=== PATIENT | male | born 1945 | race Caucasian/White ===

== ENCOUNTER 2017-09-02 18:14 | Emergency (ER) | payer OTHER, MEDICARE ==
[2017-09-02] MEDS ORDERED: NA CHLORIDE 0.9% 1,000 ML ONE (19:26)
--- NOTE | 2017-09-02 19:46 | RAD REPORT ---
EXAM DESCRIPTION: CT - Head Brain Wo Cont - 09/02/2017 7:35 pm CLINICAL HISTORY: Weakness, possible CVA COMPARISON: June 2015 TECHNIQUE: Axial 5 mm thick images of the head were obtained without IV contrast. All CT scans are performed using dose optimization technique as appropriate and may include automated exposure control or mA/KV adjustment according to patient size. FINDINGS: No intracranial hemorrhage, mass, edema or shift of mid-line structures. No acute cortical based infarction identified. Prominent atrophy and chronic ischemic changes are present. Ventricular size is in proportion to the amount of volume loss. Arterial and physiologic calcifications are pres ent. No abnormal extra-axial fluid collections. Intracranial findings are similar to the comparison. Mastoid air cells and visualized portions of the paranasal sinuses are clear. No acute bony findings. IMPRESSION: Prominent atrophy and chronic ischemic change similar to prior imaging. No acute intracranial finding seen.
[2017-09-02 19:47] LABS: Potassium 4.2 mEq/L (3.6-5.0)
[2017-09-02 19:49] LABS: Protime INR 0.98
[2017-09-02 19:53] LABS: Albumin 4.2 g/dL (3.2-5.5); Bilirubin Direct 0.1 mg/dL (0-0.2); Bilirubin Total 0.5 mg/dL (0.3-1.2); Magnesium 1.6 mg/dL (1.8-2.5); Protein, Total 7.7 g/dL (6.0-8.3)
[2017-09-02 19:57] LABS: CKMB Creatine Kinase MB 1.3 ng/ml (0.3-4.0)
[2017-09-02 20:20] LABS: Absolute Lymphocytes (CBC) 1.5 K/uL (0.7-4.9); Absolute Monocytes 0.6 K/uL (0.1-1.3); Absolute Neutrophil 5.4 K/uL (1.8-8.0); Basophils % 0.9 % (0-1.3); Eosinophils % 1.3 % (0-4.4); Hematocrit 34.5 % (39.6-49.0); MCH 29.4 pg (27.0-35.0); MCV 84.6 fL (80-100); MPV 7.9 fL (7.6-11.3); RBC Red Blood Cell Count 4.08 M/uL (4.33-5.43)
[2017-09-02 20:36] LABS: Urine Blood 1+ (NEG); Urine Glucose 2+ (NEG); Urine Protein NEGATIVE (NEG); Urine Specific Gravity <1.005 (1.005-1.030)
[2017-09-02] MEDS ORDERED: Magnesium Sulfate 2gm IVPB 2 G/50 ML BAG IV ONE (20:54)
[2017-09-02] MEDS ORDERED: INSULIN -REGULAR HUMAN 50 UNIT/0.5 ML ML ONE (20:54)
--- NOTE | 2017-09-02 21:05 | RAD REPORT ---
EXAM DESCRIPTION: RAD - Chest Single View - 09/02/2017 7:43 pm CLINICAL HISTORY: Weakness, shortness of breath COMPARISON: January 2017 TECHNIQUE: AP portable chest image was obtained at 1932 hour . FINDINGS: Lung volumes are low. No peripheral mass or consolidation. Heart and vasculature are teresa l. No measurable pleural effusion and no pneumothorax. No gross bony abnormality seen. No acute aorti c findings suspected. IMPRESSION: No acute cardiopulmonary process. No significant change from comparison.
--- NOTE | 2017-09-02 22:38 | ER ---
Nurse's Notes [facility] Name: Agustin Petty Sr Age: 71 yrs Sex: Male : 1945 Arrival Date: 09/02/2017 Time: 18:21 Bed 27 Private MD: Diagnosis: Hyperglycemia, unspecified;Altered mental status, unspecified;Focal Neurologic Deficits ;Suspected CVA Presentation: 09/02 18:21 Presenting complaint: EMS states: Pt. comes from home by EMS c/o weakness... pt. states rk2 that his blood sugar has been running high and that he has had frequent urination. Transition of care: patient was not received from another setting of care. Onset of symptoms was September 02, 2017. Care prior to arrival: Medication(s) given: Normal saline infusion, 500 mL, IV initiated. 20 GA, in the left antecubital area. 18:21 Method Of Arrival: EMS: [facility] rk2 18:21 Acuity: ALVIN 3 rk2 22:17 An acute neurological deficit is present. The patients blood glucose was checked prior rk2 to arriving to the hospital and was found to be hyperglycemic. Triage Assessment: 19:30 General: Appears in no apparent distress. Behavior is calm, cooperative. rk2 19:30 Pain: Denies pain. Neuro: Level of Consciousness is alert, obeys commands, confused, rk2 Oriented to person, place, time, Oriented; however, is confused \T\ times. . Analytical Engineer are weak on right Speech is normal, Facial symmetry appears normal, Facial symmetry: tongue is midline. Cardiovascular: Rhythm is sinus rhythm. Respiratory: Airway is patent Respiratory effort is even, unlabored, Respiratory pattern is regular, symmetrical. Derm: Skin is pink, warm \T\ dry. 22:17 The onset of the patients symptoms was September 01, 2017 at 08:00. rk2 23:31 Neuro: Reports None. rk2 Stroke Activation: Physician: Stroke Attending; Name: NA; Notified At: ; Arrived At: Physician: Chief Stroke Resident; Name: ; Notified At: ; Arrived At: Physician: Stroke Resident; Name: ; Notified At: ; Arrived At: Physician: ED Attending; Name: ; Notified At: ; Arrived At: Physician: ED Resident; Name: ; Notified At: ; Arrived At: Historical: - Allergies: 18:25 No Known Allergies; rk2 - Home Meds: 23:31 Glimepiride Oral [Active]; Metformin Oral [Active]; rk2 - PMHx: 18:25 Diabetes - NIDDM; Hypertension; rk2 - Immunization history:: Flu vaccine status is unknown. - Social history:: Smoking status: unknown. Screenin:30 Abuse screen: Denies threats or abuse. rk2 19:30 Nutritional screening: No deficits noted. Tuberculosis screening: No symptoms or risk rk2 factors identified. Fall Risk Secondary diagnosis (15 points) IV access (20 points). Gait- Impaired (20 pts.). Mental Status- Overestimates/Forgets Limitations (15 pts.). Assessment: 20:00 Reassessment: Pt. resting in room \T\ this time in no obvious distress. Family \T\ bedside. rk 2 Pt. given warm blankets. No other needs voiced. 21:07 Patient has been NPO before screening. The patient is alert, and able to follow rk2 commands. The patient does not exhibit slurred or garbled speech. The patient is not exhibiting difficulty speaking. The patient does not exhibit difficulty understanding words. The patient is able to swallow own secretions with no drooling or need for suction. Patient tolerated one teaspoon of water. No drooling, immediate coughing, gurgling, or clearing of the throat was noted. The patient tolerated 90mL of water. No drooling, immediate coughing, gurgling, or clearing of the throat was noted. The patient passed the bedside swallow screening. Oral medications may be given as ordered. Contact Physician for further diet orders. Provider notified of bedside swallow screening results: Fredrick GURROLA. 22:21 T-PA (Activase) Screening: Indications: Contraindications: Other: NA. rk2 23:11 Reassessment: Called report to receiving MARCE Raza. rk2 23:28 Reassessment: [facility] arrived, report given to Stations Superintendent... Pt. placed onto rk2 stretcher and transported. Family is to meet pt. at receiving facility. Vital Signs: 18:25 BP 148 / 85; Pulse 74; Resp 17; Temp 98.6; rk2 19:00 BP 164 / 93; Pulse 74; Resp 17; rk2 20:00 BP 140 / 78; Pulse 70; Resp 16; Pulse Ox 100% on R/A; rk2 20:30 BP 140 / 71; Pulse 65; Resp 17; Pulse Ox 100% on R/A; rk2 21:00 BP 153 / 66; Pulse 70; Resp 15; Pulse Ox 100% on R/A; rk2 21:30 BP 124 / 74; Pulse 77; Resp 16; Pulse Ox 100% on R/A; rk2 22:00 BP 143 / 83; Pulse 78; Resp 16; Pulse Ox 97% ; rk2 23:00 BP 138 / 72; Pulse 72; Resp 16; Pulse Ox 99% on R/A; rk2 NIH Stroke Scale Scores: 19:10 NIHSS Score: 3 jr8 21:07 NIHSS Score: 3 rk2 ED Course: 18:21 Patient arrived in ED. rk2 18:24 Triage completed. rk2 18:28 Antonella Dia, RN is Primary Nurse. rk2 18:34 Fredrick Bolaños PA is PHCP. jr8 18:34 Valente Smallwood MD is Attending Physician. jr8 19:25 CT Head Brain wo Cont Sent. rk2 19:30 Patient has correct armband on for positive identification. Bed in low position. Call rk2 light in reach. Side rails up X2. radiation monitor on. Pulse ox on. 19:30 Arm band placed on right wrist. rk2 19:35 CT Head Brain wo Cont In Process Unspecified. EDMS 19:41 X-ray completed. Patient tolerated procedure well. kp1 19:42 XRAY Chest (1 view) In Process Unspecified. EDMS 23:30 No provider procedures requiring assistance completed. Patient transferred, IV remains rk2 in place. Administered Medications: 19:50 Drug: NS 0.9% 1000 ml Route: IV; Rate: 1000 ml; Site: left antecubital; rk2 21:00 Follow up: Response: No adverse reaction; IV Status: Completed infusion rk2 20:55 Drug: Insulin Regular Human 10 units {Co-Signature: tl3 (Cadence Luis RN).} Route: IVP; rk2 Site: left antecubital; 22:06 Follow up: Response: No adverse reaction; Other rk2 21:05 Drug: Magnesium Sulfate 2 grams Route: IVPB; Infused Over: 2 hrs; Site: left rk2 antecubital; 23:00 Follow up: Response: No adverse reaction; IV Status: Completed infusion rk2 Point of Care Testing: Blood Glucose: 22:17 Blood Glucose: 200 mg/dL; rk2 Ranges: Outcome: 22:37 ER care complete, transfer ordered by . marge 23:30 Transferred by ground EMS to [facility]. rk2 23:30 Condition: good 23:30 Instructed on the need for transfer. 23:33 Patient left the ED. rk2 NIH Stroke Scale - NIH Stroke Score Date: 09/02/2017 Time: 19:10 Total Score = 3 1a. Level of Consciousness (LOC) - 0(Alert) 1b. Level of Consciousness (LOC) (Year \T\ Age) - 0(Both) 1c. LOC Commands (Open \T\ Closes Eyes/Child Care Leader) - 0(Both) 2. Best Gaze (Lateral Gaze Paresis) - 0(Normal) 3. Visual Field Loss - 1(Partial hemianopia) 4. Facial Palsy - 0(Normal) 5a. Left Arm: Motor (10-second hold) - 0(No drift) 5b. Right Arm: Motor (10-second hold) - 1(Drift) 6a. Left Leg: Motor (5-second hold - always test supine) - 0(No drift) 6b. Right Leg: Motor (5-second hold - always test supine) - 1(Drift) 7. Limb Ataxia (finger/nose \T\ heel/holguin - test with eyes open) - 0(Absent) 8. Sensory Loss (pinprick arms/legs/face) - 0(Normal) 9. Best Language: Aphasia (description/naming/reading) - 0(No aphasia) 10. Dysarthria (speech clarity - read or repeat words) - 0(Normal) 11. Extinction and Inattention (visual/tactile/auditory/spatial/personal) - 0(No abnormality) Initials: marge NIH Stroke Scale - NIH Stroke Score Date: 09/02/2017 Time: 21:07 Total Score = 3 1a. Level of Consciousness (LOC) - 0(Alert) 1b. Level of Consciousness (LOC) (Year \T\ Age) - 0(Both) 1c. LOC Commands (Open \T\ Closes Eyes/Child Care Leader) - 0(Both) 2. Best Gaze (Lateral Gaze Paresis) - 0(Normal) 3. Visual Field Loss - 1(Partial hemianopia) 4. Facial Palsy - 0(Normal) 5a. Left Arm: Motor (10-second hold) - 0(No drift) 5b. Right Arm: Motor (10-second hold) - 1(Drift) 6a. Left Leg: Motor (5-second hold - always test supine) - 0(No drift) 6b. Right Leg: Motor (5-second hold - always test supine) - 1(Drift) 7. Limb Ataxia (finger/nose \T\ heel/holguin - test with eyes open) - 0(Absent) 8. Sensory Loss (pinprick arms/legs/face) - 0(Normal) 9. Best Language: Aphasia (description/naming/reading) - 0(No aphasia) 10. Dysarthria (speech clarity - read or repeat words) - 0(Normal) 11. Extinction and Inattention (visual/tactile/auditory/spatial/personal) - 0(No abnormality) Initials: rk2 Signatures: Dispatcher [employer] EDFredrick Morel PA PA jr8 Leidy Caldwell kp1 Antonella Dia RN RN rk2 Cadence Luis RN tl3
--- NOTE | 2017-09-02 22:38 | EDPHYS ---
Physician Documentation [facility] Name: Agustin Petty Sr Age: 71 yrs Sex: Male : 1945 Arrival Date: 09/02/2017 Time: 18:21 Bed 27 Private MD: ED Physician Valente Smallwood HPI: 09/02 22:26 This 71 yrs old Male presents to ER via EMS with complaints of AMS, weakness. jr8 22:26 The patient's problem is reported as altered mental status, confused, weakness, in the jr8 right upper extremity, in the right lower extremity. Onset: The symptoms/episode began/occurred suddenly, 2 day(s) ago. Duration: The episode is continuous. Context: the episode(s) was witnessed, by family. The symptoms are alleviated by nothing. The symptoms are aggravated by walking. Associated signs and symptoms: The patient has no apparent associated signs or symptoms. Severity of symptoms: At their worst the symptoms were moderate in the emergency department the symptoms are unchanged. Patient's baseline: Neuro: alert and fully oriented, Motor: no deficits, Ambulation: walks without assistance, Speech: normal. The patient has not experienced similar symptoms in the past. Family stated that for the past year has noticed a slight decline in mental function. Has been more week in lower extremities since radiations surgery but has been baseline for him for sometime. Stated that they scheduled appointment with neurologist for mental decline but that over the past day has noticed sporadic shaking and weakness to right side of body along with drastic change in mental function. Brought him to hospital at that time for further evaluation . Historical: - Allergies: 18:25 No Known Allergies; rk2 - Home Meds: 23:31 Glimepiride Oral [Active]; Metformin Oral [Active]; rk2 - PMHx: 18:25 Diabetes - NIDDM; Hypertension; rk2 - Immunization history:: Flu vaccine status is unknown. - Social history:: Smoking status: unknown. ROS: 19:13 ENT: Negative for injury, pain, and discharge, Neck: Negative for injury, pain, and jr8 swelling, Cardiovascular: Negative for chest pain, palpitations, and edema, Respiratory: Negative for shortness of breath, cough, wheezing, and pleuritic chest pain, Abdomen/GI: Negative for abdominal pain, nausea, vomiting, diarrhea, and constipation, Back: Negative for injury and pain, MS/Extremity: Negative for injury and deformity, Skin: Negative for injury, rash, and discoloration. 19:13 Eyes: Positive for visual disturbance. 19:13 Neuro: Positive for altered mental status, visual changes, weakness. Exam: 19:10 Head/Face: Normocephalic, atraumatic. Eyes: Pupils equal round and reactive to light, jr8 extra-ocular motions intact. Lids and lashes normal. Conjunctiva and sclera are non-icteric and not injected. Cornea within normal limits. Periorbital areas with no swelling, redness, or edema. ENT: Nares patent. No nasal discharge, no septal abnormalities noted. Tympanic membranes are normal and external auditory canals are clear. Oropharynx with no redness, swelling, or masses, exudates, or evidence of obstruction, uvula midline. Mucous membranes moist. Neck: Trachea midline, no thyromegaly or masses palpated, and no cervical lymphadenopathy. Supple, full range of motion without nuchal rigidity, or vertebral point tenderness. No Meningismus. Cardiovascular: Regular rate and rhythm with a normal S1 and S2. No gallops, murmurs, or rubs. Normal PMI, no JVD. No pulse deficits. Respiratory: Lungs have equal breath sounds bilaterally, clear to auscultation and percussion. No rales, rhonchi or wheezes noted. No increased work of breathing, no retractions or nasal flaring. Abdomen/GI: Soft, non-tender, with normal bowel sounds. No distension or tympany. No guarding or rebound. No evidence of tenderness throughout. Back: No spinal tenderness. No costovertebral tenderness. Full range of motion. Skin: Warm, dry with normal turgor. Normal color with no rashes, no lesions, and no evidence of cellulitis. MS/ Extremity: Pulses equal, no cyanosis. Neurovascular intact. Full, normal range of motion. 19:10 Neuro: Orientation: to person, place \T\ time. Mentation: confused, Memory: immediate memory is intact, remote memory is intact. recent memory is intact, Cranial nerves: CN I not tested, CN II- XII are normal as tested, hononymous hemianopia noted, extraocular movements are intact, Nystagmus is absent. Speech is clear and appropriate. Tongue strength is normal, Cerebellar function: is grossly normal, Motor: moves all fours, Sensation: no obvious gross deficits, Gait: not tested. seizure activity, is not displayed by the patient. 22:37 Radiologist reports: No acute findings jr8 Vital Signs: 18:25 BP 148 / 85; Pulse 74; Resp 17; Temp 98.6; rk2 19:00 BP 164 / 93; Pulse 74; Resp 17; rk2 20:00 BP 140 / 78; Pulse 70; Resp 16; Pulse Ox 100% on R/A; rk2 20:30 BP 140 / 71; Pulse 65; Resp 17; Pulse Ox 100% on R/A; rk2 21:00 BP 153 / 66; Pulse 70; Resp 15; Pulse Ox 100% on R/A; rk2 21:30 BP 124 / 74; Pulse 77; Resp 16; Pulse Ox 100% on R/A; rk2 22:00 BP 143 / 83; Pulse 78; Resp 16; Pulse Ox 97% ; rk2 23:00 BP 138 / 72; Pulse 72; Resp 16; Pulse Ox 99% on R/A; rk2 NIH Stroke Scale Scores: 19:10 NIHSS Score: 3 jr8 21:07 NIHSS Score: 3 rk2 MDM: 18:34 Patient medically screened. 8 22:33 Data reviewed: vital signs, nurses notes, lab test result(s), EKG, radiologic studies, [facility] CT scan, plain films, and as a result, I will admit patient. Data interpreted: Pulse oximetry: on room air is 97 %. Interpretation: normal. Counseling: I had a detailed discussion with the patient and/or guardian regarding: the historical points, exam findings, and any diagnostic results supporting the discharge/admit diagnosis, lab results, radiology results, the need to transfer to another facility, for higher level of care, [facility] does not immediately have the required specialist. ED course: After glucose was corrected the resting tremor has stopped. Patient still has stages of confusion and deficits to right side. Consulted with Dr. Alston but is unable to see patient until Sunday and would like MRI tonight instead of waiting till tomorrow . 09/02 18:21 Order name: Glucose, Ancillary Testing; Complete Time: 18:34 EDMS 09/02 19:08 Order name: Basic Metabolic Panel; Complete Time: 20:28 09/02 19:08 Order name: BNP; Complete Time: 22:26 09/02 19:08 Order name: CBC with Diff; Complete Time: 20:28 09/02 19:08 Order name: Ckmb; Complete Time: 20:28 09/02 19:08 Order name: CPK; Complete Time: 20:28 09/02 19:08 Order name: LFT's; Complete Time: 20:28 09/02 19:08 Order name: Magnesium; Complete Time: 20:28 09/02 19:08 Order name: PT-INR; Complete Time: 20:28 09/02 19:08 Order name: Ptt, Activated; Complete Time: 20:28 09/02 19:08 Order name: Troponin (emerg Dept Use Only); Complete Time: 19:56 09/02 19:09 Order name: Ketone, Serum; Complete Time: 20:28 09/02 19:51 Order name: Osmolality, Serum; Complete Time: 22:18 09/02 20:15 Order name: Urine Dipstick--Ancillary (enter results); Complete Time: 20:37 09/02 19:08 Order name: XRAY Chest (1 view); Complete Time: 21:06 09/02 19:08 Order name: Cardiac monitoring; Complete Time: 19:25 09/02 19:08 Order name: EKG - Nurse/Tech; Complete Time: 22:38 09/02 19:08 Order name: IV Saline Lock; Complete Time: 19:25 09/02 19:08 Order name: Labs collected and sent; Complete Time: 19:25 09/02 19:08 Order name: O2 Per Protocol; Complete Time: 19:25 09/02 19:08 Order name: O2 Sat Monitoring; Complete Time: 19:25 09/02 19:08 Order name: Urine Dipstick-Ancillary (obtain specimen); Complete Time: 19:58 09/02 19:08 Order name: CT Head Brain wo Cont; Complete Time: 19:49 09/02 21:51 Order name: Glucose, Ancillary Testing; Complete Time: 22:18 EDMS Administered Medications: 19:50 Drug: NS 0.9% 1000 ml Route: IV; Rate: 1000 ml; Site: left antecubital; rk2 21:00 Follow up: Response: No adverse reaction; IV Status: Completed infusion rk2 20:55 Drug: Insulin Regular Human 10 units {Co-Signature: tl3 (Cadence Luis RN).} Route: IVP; rk2 Site: left antecubital; 22:06 Follow up: Response: No adverse reaction; Other rk2 21:05 Drug: Magnesium Sulfate 2 grams Route: IVPB; Infused Over: 2 hrs; Site: left rk2 antecubital; 23:00 Follow up: Response: No adverse reaction; IV Status: Completed infusion rk2 Point of Care Testing: Blood Glucose: 22:17 Blood Glucose: 200 mg/dL; rk2 Ranges: Critical Glucose Levels:Adult <50 mg/dl or >400 mg/dl <40 mg/dl or >180 mg/dl Disposition: 09/03 16:01 Co-signature as Attending Physician, Valente Smallwood MD I agree with the assessment and kdr plan of care. Disposition: 09/02/17 22:[address] [facility]. Diagnosis are Hyperglycemia, unspecified, Altered mental status, unspecified, Focal Neurologic Deficits , Suspected CVA. - Reason for transfer: Higher level of care. - Accepting physician is Dr. Contreras. - Condition is Fair. - Problem is new. - Symptoms have improved. NIH Stroke Scale - NIH Stroke Score Date: 09/02/2017 Time: 19:10 Total Score = 3 1a. Level of Consciousness (LOC) - 0(Alert) 1b. Level of Consciousness (LOC) (Year \T\ Age) - 0(Both) 1c. LOC Commands (Open \T\ Closes Eyes/Ground Crew Lines Person) - 0(Both) 2. Best Gaze (Lateral Gaze Paresis) - 0(Normal) 3. Visual Field Loss - 1(Partial hemianopia) 4. Facial Palsy - 0(Normal) 5a. Left Arm: Motor (10-second hold) - 0(No drift) 5b. Right Arm: Motor (10-second hold) - 1(Drift) 6a. Left Leg: Motor (5-second hold - always test supine) - 0(No drift) 6b. Right Leg: Motor (5-second hold - always test supine) - 1(Drift) 7. Limb Ataxia (finger/nose \T\ heel/holguin - test with eyes open) - 0(Absent) 8. Sensory Loss (pinprick arms/legs/face) - 0(Normal) 9. Best Language: Aphasia (description/naming/reading) - 0(No aphasia) 10. Dysarthria (speech clarity - read or repeat words) - 0(Normal) 11. Extinction and Inattention (visual/tactile/auditory/spatial/personal) - 0(No abnormality) Initials: jr8 NIH Stroke Scale - NIH Stroke Score Date: 09/02/2017 Time: 21:07 Total Score = 3 1a. Level of Consciousness (LOC) - 0(Alert) 1b. Level of Consciousness (LOC) (Year \T\ Age) - 0(Both) 1c. LOC Commands (Open \T\ Closes Eyes/Ground Crew Lines Person) - 0(Both) 2. Best Gaze (Lateral Gaze Paresis) - 0(Normal) 3. Visual Field Loss - 1(Partial hemianopia) 4. Facial Palsy - 0(Normal) 5a. Left Arm: Motor (10-second hold) - 0(No drift) 5b. Right Arm: Motor (10-second hold) - 1(Drift) 6a. Left Leg: Motor (5-second hold - always test supine) - 0(No drift) 6b. Right Leg: Motor (5-second hold - always test supine) - 1(Drift) 7. Limb Ataxia (finger/nose \T\ heel/holguin - test with eyes open) - 0(Absent) 8. Sensory Loss (pinprick arms/legs/face) - 0(Normal) 9. Best Language: Aphasia (description/naming/reading) - 0(No aphasia) 10. Dysarthria (speech clarity - read or repeat words) - 0(Normal) 11. Extinction and Inattention (visual/tactile/auditory/spatial/personal) - 0(No abnormality) Initials: rk2 Signatures: Dispatcher [employer] EDMS Valente Smallwood MD MD [facility] Fredrick Bolaños PA PA jr8 Antonella Dia RN RN rk2 Cadence Luis RN tl3
[2017-09-02 23:38] VITALS: TEMP 98.6
[2017-09-02 23:46] VITALS: BP 138/72; O2SAT 99
--- NOTE | 2017-09-03 12:11 | EKG ---
Test Date: 2017-09-02 Test Time: 20:43:33 Glass Bulb Machine Adjuster: SAVANNA MEASUREMENT RESULTS: Intervals: Rate: 74 OR: 106 QRSD: 76 QT: 394 QTc: 437 [place]: P: 12 OR: 106 QRS: 65 T: 26 INTERPRETIVE STATEMENTS: Sinus rhythm with short OR T wave abnormality, consider lateral ischemia Abnormal ECG Compared to ECG 06/23/2015 09:54:23 Short OR interval now present T-wave abnormality now present Possible ischemia now present Electronically Signed On 09-03-17 12:10:54 CDT by Prasanth Guzmán
--- NOTE | 2017-09-03 12:12 | EKG ---
Test Date: 2017-09-02 Test Time: 20:42:32 Wave Soldering Machine Operator: SAVANNA MEASUREMENT RESULTS: Intervals: Rate: 74 [place]: QRSD: 84 QT: 512 QTc: 568 [place]: P: [place]: QRS: 61 T: 55 INTERPRETIVE STATEMENTS: Sins rhythm Nonspecific ST and T wave abnormality Abnormal ECG Compared to ECG 06/23/2015 09:54:23 ST (T wave) deviation now present Electronically Signed On 09-03-17 12:11:19 CDT by Prasanth Guzmán
== END 2017-09-02 23:33 | disposition short-term general hospital (02) ==
LOC: ER 18:14
DX: E11.65 Type 2 diabetes mellitus with hyperglycemia (principal); R29.818 Other symptoms and signs involving the nervous system; R53.1 Weakness; I10 Essential (primary) hypertension; R29.703 NIHSS score 3
CPT/HCPCS: 36415; 70450; 71045; 80048; 80076; 81003; 82009; 82550; 82553; 82962 ×2; 83735; 83880; 83930; 84484; 85025; 85610; 85730; 93005 ×2; 96361; 96365; 96366; 96375; 99285; J3475; J7030

== ENCOUNTER 2018-03-27 19:26 | Emergency (ER) | payer OTHER, MEDICARE ==
--- OUTSIDE RECORDS SUMMARY | 2018-03-27 19:29 | XMS REPORT | Clinical Summary ---
:1945 [facility] Address [address] [place] [address] Care Team Providers Name Role Phone Unavailable Primary Care Provider Unavailable Allergies No Known Allergies Medications Medication Sig Dispensed Refills Start Date End Date Status glimepiride Take 4 mg by mouth 0 Active (AMARYL) 4 MG every morning before tablet breakfast. rosuvastatin Take 20 mg by mouth 0 Active (CRESTOR) 20 MG daily. tablet metFORMIN Take 1,000 mg by 0 Active (GLUCOPHAGE) 1000 mouth 2 (two) times MG tablet daily with breakfast and dinner. furosemide (LASIX) Take 40 mg by mouth 0 Active 40 MG daily. tabletIndications: Edema lisinopril Take 20 mg by mouth 0 Active (PRINIVIL,ZESTRIL) daily. 20 MG tablet gabapentin Take 300 mg by mouth 0 Active (NEURONTIN) 300 MG 3 (three) times capsule daily. alendronate Take 70 mg by mouth 0 Active (FOSAMAX) 70 MG every 7 days Take in tablet the morning with a full glass of water, on an empty stomach, and do not take anything else by mouth or lie down for the next 30 min. . insulin detemir Inject 0 Active (LEVEMIR) 100 subcutaneously unit/mL injection nightly. lancets (CARETOUCH Use as directed. 30 each 0 09/06/2017 Active TWIST LANCET) 28 gauge [facility] blood sugar Use as directed. 30 strip 0 09/06/2017 Active diagnostic (ACCUTREND GLUCOSE) Strp donepezil Take 1 tablet (5 mg 30 tablet 11 09/06/2017 09/06/2018 Active (ARICEPT) 5 MG total) by mouth tablet nightly. insulin detemir Inject 0.1 mLs (10 6 mL 0 09/06/2017 10/06/2017 (LEVEMIR FLEXPEN) Units total) 100 unit/mL (3 mL) subcutaneously 2 InPn injection (two) times daily for 30 days. Active Problems Problem Noted Date Encephalopathy 09/04/2017 Altered mental status, unspecified altered mental status type 09/04/2017 Altered mental status, unspecified 09/03/2017 Encounters Date Type Specialty Care Team Description 09/03/2017 - Hospital [facility] [place] [facility] Altered mental status, unspecified altered mental status type; 09/06/2017 Encounter MD Prasanth Essential hypertension; Josephine Upton Hyperlipidemia, unspecified hyperlipidemia type; MD Faustina Type 2 diabetes mellitus with complication, with long- term current use of insulin ([facility]) 09/03/2017 Orders Only General Internal Medicine after 03/26/2017 Social History Tobacco Use Types Packs/Day Years Used Date Never Smoker Smokeless Tobacco: Never Used Alcohol Use Drinks/Week oz/Week Comments No Sex Assigned at Date Recorded Not on file Job Start Date Occupation Industry Not on file Not on file Not on file Travel History Travel Start Travel End No recent travel history available. Last Filed Vital Signs Vital Sign Reading Time Taken Blood Pressure 134/65 09/06/2017 8:27 AM CDT Pulse 81 09/06/2017 8:27 AM CDT Temperature 36.3 C (97.3 F) 09/06/2017 8:27 AM CDT Respiratory Rate 18 09/06/2017 8:27 AM CDT Oxygen Saturation 99% 09/06/2017 8:27 AM CDT Inhaled Oxygen Concentration - - Weight 73.2 kg (161 lb 4.8 oz) 09/03/2017 1:18 AM CDT Height 171.5 cm (5' 7.5") 09/03/2017 1:18 AM CDT Body Mass Index 24.89 09/03/2017 1:18 AM CDT Plan of Treatment Not on file Procedures Procedure Name Priority Date/Time Associated Comments Diagnosis RHYTHM STRIP - SCAN 09/07/2017 11:11 AM CDT POCT-GLUCOSE METER Routine 09/06/2017 8:29 Results for this AM CDT procedure are in the results section. POCT-GLUCOSE METER Routine 09/06/2017 5:03 Results for this AM CDT procedure are in the results section. POCT-GLUCOSE METER Routine 09/05/2017 7:13 Results for this PM CDT procedure are in the results section. POCT-GLUCOSE METER Routine 09/05/2017 6:42 Results for this PM CDT procedure are in the results section. POCT-GLUCOSE METER Routine 09/05/2017 5:35 Results for this PM CDT procedure are in the results section. CSF CULTURE + GRAM Routine 09/05/2017 2:32 Results for this STAIN PM CDT procedure are in the results section. WEST NILE VIRUS, CSF, Routine 09/05/2017 2:31 Results for this IGG & IGM PM CDT procedure are in the results section. CRYPTOCOCCAL ANTIGEN, Routine 09/05/2017 2:31 Results for this CSF PM CDT procedure are in the results section. VDRL, CSF Routine 09/05/2017 2:31 Results for this PM CDT procedure are in the results section. PROTEIN, CSF Routine 09/05/2017 2:31 Results for this PM CDT procedure are in the results section. GLUCOSE, CSF Routine 09/05/2017 2:31 Results for this PM CDT procedure are in the results section. CSF CELL COUNT Routine 09/05/2017 2:31 Results for this W/DIFFERENTIAL PM CDT procedure are in the results section. MISCELLANEOUS LAB Routine 09/05/2017 2:30 ORDER PM CDT MISCELLANEOUS LAB Routine 09/05/2017 2:30 ORDER PM CDT VARICELLA ZOSTER PCR, Routine 09/05/2017 2:30 Results for this QUALITATIVE PM CDT procedure are in the results section. HSV 1/2 PCR, Routine 09/05/2017 2:30 Results for this QUALITATIVE PM CDT procedure are in the results section. POCT-GLUCOSE METER Routine 09/05/2017 12:13 Results for this PM CDT procedure are in the results section. POCT-GLUCOSE METER Routine 09/05/2017 7:48 Results for this AM CDT procedure are in the results section. POCT-GLUCOSE METER Routine 09/04/2017 9:06 Results for this PM CDT procedure are in the results section. MR BRAIN WITHOUT IV Routine 09/04/2017 8:10 Results for this CONTRAST PM CDT procedure are in the results section. MR MRA NECK WITHOUT IV Routine 09/04/2017 8:10 Results for this CONTRAST PM CDT procedure are in the results section. MR MRA HEAD WITHOUT Routine 09/04/2017 8:10 Results for this CONTRAST PM CDT procedure are in the results section. POCT-GLUCOSE METER Routine 09/04/2017 6:33 Results for this PM CDT procedure are in the results section. POCT-GLUCOSE METER Routine 09/04/2017 2:26 Results for this PM CDT procedure are in the results section. POCT-GLUCOSE METER Routine 09/04/2017 2:20 Results for this PM CDT procedure are in the results section. POCT-GLUCOSE METER Routine 09/04/2017 2:13 Results for this PM CDT procedure are in the results section. POCT-GLUCOSE METER Routine 09/04/2017 12:09 Results for this PM CDT procedure are in the results section. POCT-GLUCOSE METER Routine 09/04/2017 8:14 Results for this AM CDT procedure are in the results section. POCT-GLUCOSE METER Routine 09/03/2017 9:19 Results for this PM CDT procedure are in the results section. ECG 12-LEAD Routine 09/03/2017 9:01 PM CDT Procedure Note - Interface, External Ris In - 09/03/2017 9:15 PM CDT Ventricular Rate 82 BPM Atrial Rate 82 BPM P-R Interval 134 ms QRS Duration 78 ms Q-T Interval 400 ms QTC Calculation(Bazett) 467 ms P Delaplane 45 degrees R Delaplane 61 degrees T Delaplane 91 degrees Normal sinus rhythm ST & T wave abnormality, consider anterolateral ischemia Prolonged QT Abnormal ECG No previous ECGs available ECG 12-LEAD Routine 09/03/2017 9:01 PM CDT MARIBELL TITER AND PATTERN Routine 09/03/2017 6:47 PM CDT ANTI-NUCLEAR ANTIBODY (MARIBELL) Routine 09/03/2017 6:47 PM CDT THYROID PEROXIDASE (TPO) Routine 09/03/2017 6:47 PM CDT Results for this ANTIBODY procedure are in the results section. POCT-GLUCOSE METER Routine 09/03/2017 5:39 PM CDT EEG AWAKE AND DROWSY Routine 09/03/2017 2:51 PM CDT URINALYSIS W/ REFLEX URINE Routine 09/03/2017 11:18 AM CDT Results for this CULTURE procedure are in the results section. POCT-GLUCOSE METER Routine 09/03/2017 7:56 AM CDT CBC W/PLT COUNT & AUTO Routine 09/03/2017 5:53 AM CDT Results for this DIFFERENTIAL procedure are in the results section. AMMONIA Routine 09/03/2017 5:53 AM CDT C-REACTIVE PROTEIN Routine 09/03/2017 5:53 AM CDT SEDIMENTATION RATE Routine 09/03/2017 5:53 AM CDT HIV-1 ANTIGEN WITH HIV-1/2 Routine 09/03/2017 5:53 AM CDT Results for this ANTIBODY procedure are in the results section. VITAMIN B12 Routine 09/03/2017 5:53 AM CDT TSH/FREE T4 IF INDICATED Routine 09/03/2017 5:53 AM CDT LIPID PANEL Routine 09/03/2017 5:53 AM CDT PROTHROMBIN TIME/INR Routine 09/03/2017 5:53 AM CDT HEPATIC FUNCTION PANEL Routine 09/03/2017 5:53 AM CDT RPR Routine 09/03/2017 5:53 AM CDT HOMOCYSTEINE Routine 09/03/2017 5:53 AM CDT HEMOGLOBIN A1C Routine 09/03/2017 5:53 AM CDT CBC W/PLT COUNT & AUTO Routine 09/03/2017 5:53 AM CDT Results for this DIFFERENTIAL procedure are in the results section. LIPID PANEL Routine 09/03/2017 5:53 AM CDT BASIC METABOLIC PANEL (7) Routine 09/03/2017 5:53 AM CDT after 03/26/2017 Results RHYTHM STRIP - SCAN (09/07/2017 11:11 AM CDT) Narrative Performed At POC-Glucose meter (09/06/2017 8:29 AM CDT)Only the most recent of17 resultswithin the time period is included. POC-Glucose Meter 321 (H)Comment: Notified 70 - 110 mg/dL [facility] RN /TESTED AT [address] [address] Specimen Blood Performing Organization Address [facility]/Zipcode Phone Number [address] [phone] [place] CSF culture + gram stain (09/05/2017 2:32 PM CDT) Result No growth [facility] Gram Stain Result No WBCs [facility] Gram Stain Result No organisms seen [facility] Specimen Cerebrospinal Fluid - CSF, tube 1 Performing Organization Address [facility] [[email or web address] Phone Number [address] [phone] [place] Cryptococcal antigen, CSF (09/05/2017 2:31 PM CDT) Cryptococcal Antigen, CSF Negative Negative, Interference [facility] Specimen Cerebrospinal Fluid - CSF Performing Organization Address [facility] [[email or web address] Phone Number [address] [phone] [place] CSF cell count with differential (09/05/2017 2:31 PM CDT) Appearance Clear Clear [facility] Color Colorless Colorless [facility] RBCs 7 (H) 0 - 5 /cu mm [facility] WBCs 0 <=5 /cu mm [facility] RBCs Fresh? 100% Fresh [facility] # of Cells Diff'd 0 [facility] Tube Number 1 [facility] Specimen Cerebrospinal Fluid - CSF Performing Organization Address City/[facility]/Zipcode Phone Number [address] [phone] [place] West Nile Virus, CSF, IgG and IgM (09/05/2017 2:31 PM CDT) West Nile Ab,Igm <0.90 [facility] Comment: INCORPORATED REFERENCE RANGE: <0.90 INTERPRETIVE CRITERIA <0.90 Antibody not detected 0.90 - 1.10 Equivocal >1.10 Antibody detected West Nile virus (WNV) IgM is usually detectable in CSF from WNV-infected patients with encephalitis or meningitis at the time of clinical presentation. Because IgM antibody does not readily cross the blood-brain barrier, IgM antibody in CSF strongly suggests acute central nervous system infection. WNV antibody results from CSF should be in interpreted with caution. Possible complicating factors include low levels of antibody found in CSF, passive transfer of antibodies from blood, and contamination via bloody spinal taps. Antibodies induced by other flavivirus infections (e.g. Dengue virus, [place] encephalitis virus) may show cross-reactivity with WNV. Specimen Cerebrospinal Fluid - CSF Narrative Performed At Performing Lab [facility] *[facility] [address] [place] [phone] Chanel Bob MD Performing Organization Address City/[facility] [[email or web address] Phone Number [facility] [address] [place] [address] VDRL, CSF (09/05/2017 2:31 PM CDT) VDRL, CSF Nonreactive [facility] Specimen Cerebrospinal Fluid - CSF Performing Organization Address City/[facility]/Zipcode Phone Number [address] [phone] [place] Protein, CSF (09/05/2017 2:31 PM CDT) Protein, CSF 73 (H) 15 - 45 mg/dL [facility] Specimen Cerebrospinal Fluid - CSF Performing Organization Address City/[facility]/Zipcode Phone Number [address] [phone] CENTER Glucose, CSF (09/05/2017 2:31 PM CDT) Glucose, CSF 165 (H) 40 - 70 mg/dL [facility] Specimen Cerebrospinal Fluid - CSF Performing Organization Address City/State/Zipcode Phone Number [facility] [address] [place] [address] [phone] CENTER Varicella zoster PCR, qualitative (09/05/2017 2:30 PM CDT) Source-Body Site CEREBROSPINAL FLUID [facility] VZV DNA,Qual.PCR NOT DETECTED [facility] Comment: INCORPORATED REFERENCE RANGE: NOT DETECTED This test was developed and its analytical performance characteristics have been determined by [facility]. It has not been cleared or approved by FDA. This assay has been validated pursuant to the CLIA regulations and is used for clinical purposes. Specimen Cerebrospinal Fluid - CSF Narrative Performed At Performing Lab [facility] *[facility] [address] [place] [address] Chanel Bob MD Performing Organization Address City/State/Zipcode Phone Number [facility] [place] [address] INCORPORATED [address] [facility] CMV PCR Quantitative (09/05/2017 2:30 PM CDT)Only the most recent of2 resultswithin the time period is included. Scan Result [facility] Specimen Cerebrospinal Fluid Narrative Performed At Performing Organization Address City/State/Zipcode Phone Number [facility] [address] [place], [place] HSV 1/2 PCR, Qualitative (09/05/2017 2:30 PM CDT) HSV, PCR NEGATIVE NEGATIVE [facility] Specimen Cerebrospinal Fluid - CSF Narrative Performed At Herpes Simplex Virus (HSV) not detected. [facility] These assays were performed by real-time PCR utilizing fluorogenic hydrolysis probe technology for the detection of Herpes Simplex Virus-1 and/or Herpes Simplex Virus-2 in approved specimens.A 154 base pair region of the HSV-1 and HSV-2 UL5 gene is amplified, and typing is achieved by using type specific probes.An internal control is used to confirm PCR amplification.Genetic variation and other factors can affect the accuracy of nucleic acid testing; therefore, the results should be interpreted in light of clinical data. This test was developed and its performance characteristics determined by the [facility] Pathology Department, Section of Molecular Pathology.It has not been cleared or approved by the U.S. Food and Drug Administration (FDA), as FDA approval is not required for clinical use of the test.Validation was done as required by the Clinical Laboratory Amendments of 1988. Performing Organization Address City/State/Zipcode Phone Number [facility] [address] [place] [address] [phone] CENTER MR brain without IV contrast (09/04/2017 8:10 PM CDT) Narrative Performed At FINAL REPORT [facility] MRI brain Comparison: None Reason for exam: Encephalopathy encephalopathy, history of prostate CA; focal neurological deficits suspected Discussion: Multiplanar MR imaging the brain was performed using T1, T2, FLAIR, FFE, diffusion, and ADC map imaging. Imaging discussed with the patient's nurse Nayeli with instructions to contact the primary team at this finalized report. There are no intracranial hematomas, mass effect, shift, or extra-axial collections. There are no areas of abnormal diffusion restriction. Chronic microvascular changes are present in both cerebral hemispheres. There is mild to moderate diffuse ventricular prominence. Correlate clinically for communicating hydrocephalus. Additionally, T2 hyperintense signal alterations are seen within numerous sulci on the FLAIR sequence. Areas of diminished signal are seen throughout the sulci on the gradient echo sequence. It is unclear if these are hemosiderin stains or that of acute leptomeningeal pathology to include subarachnoid hemorrhage. There are numerous scattered punctate foci of chronic hemosiderin stain also seen on the gradient echo sequence. Flow-voids are seen in the basilar and internal carotid arteries as well as in the large posterior dural sinuses. The pineal, sella, and craniocervical junction regions are unremarkable. The visualized orbital contents, paranasal sinuses, skullbase and surrounding soft tissues are unremarkable.. Impressions: 1. Signal alterations within multiple cerebral sulci, etiology unknown. CT head may provide additional helpful information. If indicated consider CSF analysis. Subarachnoid hemorrhage could not be excluded. 2. Ventricular prominence. Correlate clinically for communicating hydrocephalus. Signed: Sherrie Colbert MD Report Verified Date/Time:09/04/2017 21:09:29 Procedure Note Interface, External Ris In - 09/05/2017 10:16 AM CDT FINAL REPORT MRI brain Comparison: None Reason for exam: Encephalopathy encephalopathy, history of prostate CA; focal neurological deficits suspected Discussion: Multiplanar MR imaging the brain was performed using T1, T2, FLAIR, FFE, diffusion, and ADC map imaging. Imaging discussed with the patient's nurse Nayeli with instructions to contact the primary team at this finalized report. There are no intracranial hematomas, mass effect, shift, or extra-axial collections. There are no areas of abnormal diffusion restriction. Chronic microvascular changes are present in both cerebral hemispheres. There is mild to moderate diffuse ventricular prominence. Correlate clinically for communicating hydrocephalus. Additionally, T2 hyperintense signal alterations are seen within numerous sulci on the FLAIR sequence. Areas of diminished signal are seen throughout the sulci on the gradient echo sequence. It is unclear if these are hemosiderin stains or that of acute leptomeningeal pathology to include subarachnoid hemorrhage. There are numerous scattered punctate foci of chronic hemosiderin stain also seen on the gradient echo sequence. Flow-voids are seen in the basilar and internal carotid arteries as well as in the large posterior dural sinuses. The pineal, sella, and craniocervical junction regions are unremarkable. The visualized orbital contents, paranasal sinuses, skullbase and surrounding soft tissues are unremarkable. . Impressions: 1. Signal alterations within multiple cerebral sulci, etiology unknown. CT head may provide additional helpful information. If indicated consider CSF analysis. Subarachnoid hemorrhage could not be excluded. 2. Ventricular prominence. Correlate clinically for communicating hydrocephalus. Signed: Sherrie Colbert MD Report Verified Date/Time: 09/04/2017 21:09:29 Performing Organization Address City/State/Zipcode Phone Number [facility] MRA neck without IV contrast (09/04/2017 8:10 PM CDT) Narrative Performed At FINAL REPORT [facility] MRA head and neck Comparison: None Reason for exam:Encephalopathy Discussion: 2 D and 3-D [id number] MRA of the head and neck was provided with maximal intensity projection 3-D reconstructions of the cervical and intracranial arterial vasculatures. NASCET criteria are utilized when considering stenosis. Bilateral carotid bulb atherosclerotic stenosis is estimated at 40% by NASCET criteria. Otherwise normal cervical carotid system flow. Normal flow cervical segment vertebral arteries. Normal flow intracranial internal carotid arteries and in the carotid terminus branches proximally. Normal vertebrobasilar and proximal posterior cerebral artery flow. Impressions: Mild bilateral carotid bulb atherosclerotic stenosis. Signed: Sherrie Colbert MD Report Verified Date/Time:09/04/2017 21:12:06 Procedure Note Interface, External Ris In - 09/04/2017 9:14 PM CDT FINAL REPORT MRA head and neck Comparison: None Reason for exam: Encephalopathy Discussion: 2 D and 3-D [id number] MRA of the head and neck was provided with maximal intensity projection 3-D reconstructions of the cervical and intracranial arterial vasculatures. NASCET criteria are utilized when considering stenosis. Bilateral carotid bulb atherosclerotic stenosis is estimated at 40% by NASCET criteria. Otherwise normal cervical carotid system flow. Normal flow cervical segment vertebral arteries. Normal flow intracranial internal carotid arteries and in the carotid terminus branches proximally. Normal vertebrobasilar and proximal posterior cerebral artery flow. Impressions: Mild bilateral carotid bulb atherosclerotic stenosis. Signed: Sherrie Colbert MD Report Verified Date/Time: 09/04/2017 21:12:06 Performing Organization Address City/State/Zipcode Phone Number [facility] MRA head without IV contrast (09/04/2017 8:10 PM CDT) Narrative Performed At FINAL REPORT [facility] MRA head and neck Comparison: None Reason for exam:Encephalopathy Discussion: 2 D and 3-D [id number] MRA of the head and neck was provided with maximal intensity projection 3-D reconstructions of the cervical and intracranial arterial vasculatures. NASCET criteria are utilized when considering stenosis. Bilateral carotid bulb atherosclerotic stenosis is estimated at 40% by NASCET criteria. Otherwise normal cervical carotid system flow. Normal flow cervical segment vertebral arteries. Normal flow intracranial internal carotid arteries and in the carotid terminus branches proximally. Normal vertebrobasilar and proximal posterior cerebral artery flow. Impressions: Mild bilateral carotid bulb atherosclerotic stenosis. Signed: Sherrie Colbert MD Report Verified Date/Time:09/04/2017 21:12:06 Procedure Note Interface, External Ris In - 09/04/2017 9:14 PM CDT FINAL REPORT MRA head and neck Comparison: None Reason for exam: Encephalopathy Discussion: 2 D and 3-D [id number] MRA of the head and neck was provided with maximal intensity projection 3-D reconstructions of the cervical and intracranial arterial vasculatures. NASCET criteria are utilized when considering stenosis. Bilateral carotid bulb atherosclerotic stenosis is estimated at 40% by NASCET criteria. Otherwise normal cervical carotid system flow. Normal flow cervical segment vertebral arteries. Normal flow intracranial internal carotid arteries and in the carotid terminus branches proximally. Normal vertebrobasilar and proximal posterior cerebral artery flow. Impressions: Mild bilateral carotid bulb atherosclerotic stenosis. Signed: Sherrie Colbert MD Report Verified Date/Time: 09/04/2017 21:12:06 Performing Organization Address [facility] Phone Number GE RIS ECG 12 lead (09/03/2017 9:01 PM CDT) Narrative Performed At Ventricular Rate 82 BPM GE MUSE Atrial Rate 82 BPM P-R Interval 134 ms QRS Duration 78 ms Q-T Interval 400 ms QTC Calculation(Bazett) 467 ms P Delaplane 45 degrees R Delaplane 61 degrees T Delaplane 91 degrees Baseline artifact Normal sinus rhythm ST & T wave abnormality, consider anterolateral ischemia Prolonged QT Abnormal ECG No previous ECGs available Confirmed by MD MENDES YOCHAI ([id number]) on 09/05/2017 7:11:02 AM Procedure Note Interface, External Ris In - 09/05/2017 7:11 AM CDT Ventricular Rate 82 BPM Atrial Rate 82 BPM P-R Interval 134 ms QRS Duration 78 ms Q-T Interval 400 ms QTC Calculation(Bazett) 467 ms P Delaplane 45 degrees R Delaplane 61 degrees T Delaplane 91 degrees Baseline artifact Normal sinus rhythm ST & T wave abnormality, consider anterolateral ischemia Prolonged QT Abnormal ECG No previous ECGs available Confirmed by MD MENDES YOCHAI ([id number]) on 09/05/2017 7:11:02 AM Performing Organization Address City/[facility] [[email or web address] Phone Number [facility] [place] Thyroid peroxidase (TPO) antibody (09/03/2017 6:47 PM CDT) Thyroid Peroxidase Ab 4 <9 IU/mL [facility] Specimen Blood Narrative Performed At Performing Lab [facility] [address] [address] Lex Mcneill MD, PhD, [place] Performing Organization Address City/[facility] [[email or web address] Phone Number [facility] [place] [address] [place] [address] MARIBELL Titer & Pattern (09/03/2017 6:47 PM CDT) MARIBELL Titer 1:40 [facility] MARIBELL Pattern Speckled [facility] Specimen Blood Performing Organization Address [facility] [[email or web address] [address] [place] Anti-Nuclear Antibody (MARIBELL) (09/03/2017 6:47 PM CDT) MARIBELL Positive (A) Negative [facility] Specimen Blood Performing Organization Address [facility] Phone Number [address] [address] [place] EEG AWAKE AND DROWSY (09/03/2017 2:51 PM CDT) Narrative Performed At Date(s) of EE09/03/17 [facility] DATE OF REPORT: 09/03/17 ACC: [id number] EEG Number: [id number] Test Location: Inpatient Room Start time: 14:30 Stop time: 14:51 ICD-10: R56.9 CPT Code: 19464 HISTORY: Mr. Petty is a RH 71 y.o. w/ IDDM, HTN, CAD c/b prior MIBPH s/p photoselective vaporization, and prior prostate CA s/p XRT (last completed in early 2016); he was transferred to [facility] on 09/03 for further evaluation of seizure-like episodes in the setting of cognitive decline and generalized weakness MEDICATIONS THAT COULD AFFECT EEG: None TECHNICAL SUMMARY: This is a digital video-EEG recorded with 32 input channels reviewed with bipolar and referential montages using the modified [employer] system nomenclature. DESCRIPTION OF RECORD: During the maximally alert state a 7-8 Hz posterior dominant rhythm was seen that was symmetric, reactive to eye opening and well regulated.More anteriorly, low voltage frontocentral beta predominated.Background shows excessive moderate voltage 5-7Hz theta activities during the alert state. Drowsiness was characterized by alpha attenuation and increased frontocentral theta. Sleep structures were not seen in this recording. SIGNIFICANT VIDEO EVENTS: None SIGNIFICANT ELECTROCARDIOGRAM EVENTS: None HV: Hyperventilation was not performed. PHOTIC STIMULATION: Photic stimulation was not performed. IMPRESSION: Abnormal Awake and Drowsy EEG 1. Continuous, generalized, theta slowing. reactive CLINICAL CORRELATION: Diffuse slowing seen in this recording support an underlying mild encephalopathy. An EEG without epileptiform discharges does not exclude the possibility of epilepsy.If the clinical suspicion of epilepsy remains, consider additional EEG recordings. Elisa Jordan MD Neurophysiology Fellow, PGY5 Attending note: I personally reviewed this EEG record in its entirety and I agree with the details of this report. Martha Pace MD Clinical Neurophysiology/Epilepsy Attending Procedure Note Interface, External Ris In - 09/03/2017 4:15 PM CDT Date(s) of EE09/03/17 DATE OF REPORT: 09/03/17 ACC: [id number] EEG Number: [id number] Test Location: Inpatient Room Start time: 14:30 Stop time: 14:51 ICD-10: R56.9 CPT Code: 27729 HISTORY: Mr. Petty is a RH 71 y.o. w/ IDDM, HTN, CAD c/b prior MIBPH s/p photoselective vaporization, and prior prostate CA s/p XRT (last completed in early 2016); he was transferred to [facility] on 09/03 for further evaluation of seizure-like episodes in the setting of cognitive decline and generalized weakness MEDICATIONS THAT COULD AFFECT EEG: None TECHNICAL SUMMARY: This is a digital video-EEG recorded with 32 input channels reviewed with bipolar and referential montages using the modified [employer] system nomenclature. DESCRIPTION OF RECORD: During the maximally alert state a 7-8 Hz posterior dominant rhythm was seen that was symmetric, reactive to eye opening and well regulated. More anteriorly, low voltage frontocentral beta predominated. Background shows excessive moderate voltage 5-7Hz theta activities during the alert state. Drowsiness was characterized by alpha attenuation and increased frontocentral theta. Sleep structures were not seen in this recording. SIGNIFICANT VIDEO EVENTS: None SIGNIFICANT ELECTROCARDIOGRAM EVENTS: None HV: Hyperventilation was not performed. PHOTIC STIMULATION: Photic stimulation was not performed. IMPRESSION: Abnormal Awake and Drowsy EEG 1. Continuous, generalized, theta slowing. reactive CLINICAL CORRELATION: Diffuse slowing seen in this recording support an underlying mild encephalopathy. An EEG without epileptiform discharges does not exclude the possibility of epilepsy. If the clinical suspicion of epilepsy remains, consider additional EEG recordings. Elisa Jordan MD Neurophysiology Fellow, PGY5 Attending note: I personally reviewed this EEG record in its entirety and I agree with the details of this report. Martha Pace MD Clinical Neurophysiology/Epilepsy Attending Performing Organization Address City/State/[facility] [[email or web address] Phone Number GE RIS Urinalysis w/Microscopic + Reflex to Culture (09/03/2017 11:18 AM CDT) Color, UA Light Yellow [facility] Clarity, UA Clear [facility] Specific [place], UA 1.005 1.001 - 1.035 [facility] pH, UA 5.0 5.0 - 8.0 [facility] Protein, UA Negative Negative [facility] Glucose, UA 300 mg/dL (A) Negative [facility] Ketones, UA Trace (A) Negative [facility] Bilirubin, UA Negative Negative [facility] Blood, UA Negative Negative [facility] Nitrite, UA Negative Negative [facility] Leukocytes, UA Negative Negative [facility] Urobilinogen, UA 0.2 0.2 - 1.0 mg/dL [facility] RBC, UA <1 /HPF [facility] WBC, UA 0 /HPF [facility] Mucus Rare [facility] Specimen Source [facility] Specimen Urine - Urine, Clean Catch Performing Organization Address [facility] [[email or web address] Phone Number [address] [address] [place] TSH/Free T4 If Indicated (09/03/2017 5:53 AM CDT) TSH 0.49 0.35 - 4.94 uIU/mL [facility] Specimen Blood Narrative Performed At Fasting [facility] Performing Organization Address City/[facility] [[email or web address] Phone Number [address] [address] [place] HIV-1 Antigen with HIV-1/2 Antibody (09/03/2017 5:53 AM CDT) HIV-1 Antigen with HIV 1&[address] [facility] CENTER Specimen Blood Performing Organization Address [facility] [[email or web address] Phone Number [address] [address] CENTER C-Reactive Protein (09/03/2017 5:53 AM CDT) CRP 0.68 (H) 0.00 - 0.50 mg/dL [facility] Specimen Blood Performing Organization Address City/[facility] [[email or web address] Phone Number [address] [address] [place] CBC with platelet count + automated diff (09/03/2017 5:53 AM CDT) WBC 8.8 3.5 - 10.5 K/L [facility] RBC 4.13 (L) 4.63 - 6.08 M/L [facility] Hemoglobin 11.8 (L) 13.7 - 17.5 GM/DL [facility] Hematocrit 34.7 (L) 40.1 - 51.0 % [facility] MCV 84.0 79.0 - 92.2 fL [facility] MCH 28.6 25.7 - 32.2 pg [facility] MCHC 34.0 32.3 - 36.5 GM/DL [facility] RDW 13.0 11.6 - 14.4 % [facility] Platelets 203 150 - 450 K/CU MM [facility] MPV 9.5 9.4 - 12.4 fL [facility] nRBC 0 0 - 0 /100 WBC [facility] % Neutros 77 % [facility] % Lymphs 15 % [facility] % Monos 7 % [facility] % Eos 0 % [facility] % Baso 1 % [facility] # Neutros 6.73 (H) 1.78 - 5.38 K/L [facility] # Lymphs 1.28 (L) 1.32 - 3.57 K/L [facility] # Monos 0.59 0.30 - 0.82 K/L [facility] # Eos 0.00 (L) 0.04 - 0.54 K/L [facility] # Baso 0.07 0.01 - 0.08 K/L [facility] Immature Granulocytes-Relative 1 0 - 1 % [facility] Specimen Blood Performing Organization Address City/State/Zipcode Phone Number [facility] [address] [place] [address] [phone] CENTER RPR (09/03/2017 5:53 AM CDT) RPR Nonreactive Nonreactive [facility] Specimen Blood Performing Organization Address City/State/Zipcode Phone Number [address] [address] [phone] CENTER Sedimentation rate (09/03/2017 5:53 AM CDT) Sed Rate 86 (H) 0 - 40 mm/HR [facility] Specimen Blood Performing Organization Address City/[facility]/Zipcode Phone Number [address] [address] [phone] CENTER Prothrombin time/INR (09/03/2017 5:53 AM CDT) Protime 16.5 (H) 11.7 - 14.7 seconds [facility] INR 1.3 <=5.9 [facility] Specimen Blood Narrative Performed At [facility] RECOMMENDED COUMADIN/WARFARIN INR THERAPY RANGES STANDARD DOSE: 2.0 - 3.0 Includes: PROPHYLAXIS for venous thrombosis, systemic embolization; TREATMENT for venous thrombosis and/or pulmonary embolus. HIGH RISK: Target INR is 2.5-3.5 for patients with mechanical heart valves. Performing Organization Address City/State/Zipcode Phone Number [address] [address] [place] Homocysteine - Fasting (09/03/2017 5:53 AM CDT) Homocysteine 14.8 5.1 - 15.4 umol/L [facility] Specimen Blood Narrative Performed At Fasting [facility] Performing Organization Address City/State/Zipcode Phone Number [address] [address] [place] Hemoglobin A1c - Fasting (09/03/2017 5:53 AM CDT) Hemoglobin A1C 10.1 (H) 4.3 - 6.1 % [facility] Specimen Blood Narrative Performed At Fasting [facility] Performing Organization Address City/[facility] [[email or web address] Phone Number [address] [address] [phone] [place] Vitamin B12 (09/03/2017 5:53 AM CDT) Vitamin B12 717 213 - 816 pg/mL [facility] Specimen Blood Performing Organization Address City/[facility] [[email or web address] Phone Number [address] [address] C[place] Ammonia (09/03/2017 5:53 AM CDT) Ammonia 13 (L) 18 - 72 mol/L [facility] Specimen Blood Performing Organization Address [facility] Phone Number [address] [address] [phone] [place] Hepatic function panel (09/03/2017 5:53 AM CDT) Protein, Total 7.0 6.0 - 8.3 gm/dL [facility] Albumin 4.0 3.5 - 5.0 g/dL [facility] Total Bilirubin 0.5 0.2 - 1.2 mg/dL [facility] Bilirubin, Direct 0.2 0.1 - 0.5 mg/dL [facility] Alkaline Phosphatase 77 40 - 150 U/L [facility] AST 12 5 - 34 U/L [facility] ALT 12 6 - 55 U/L [facility] Specimen Blood Narrative Performed At Fasting [facility] Performing Organization Address [facility] [[email or web address] Phone Number [address] [address] [phone] CENTER Lipid panel (09/03/2017 5:53 AM CDT)Only the most recent of2 resultswithin the time period is included. Triglycerides 160 mg/dL [facility] Cholesterol 159 mg/dL [facility] HDL 37 mg/dL [facility] LDL Calculated 90 mg/dL [facility] Specimen Blood Narrative Performed At [facility] Triglyceride Reference Range: Low Risk <150 [id number] High Risk 200-499 Very High Risk>=500 Cholesterol Reference Range: Low Risk <200 [id number] High Risk>240 HDL Cholesterol Reference Range: Low Risk >=60 High Risk <40 LDL Cholesterol Reference Range: Optimal<100 Near [id number] Very High >=190 Performing Organization Address City/[facility]/Zipcode Phone Number [address] [address] [place] Basic Metabolic Panel (09/03/2017 5:53 AM CDT) Sodium 137 136 - 145 meq/L [facility] Potassium 4.2 3.5 - 5.1 meq/L [facility] Chloride 103 98 - 107 meq/L [facility] CO2 23 22 - 29 meq/L [facility] BUN 34 (H) 7 - 21 mg/dL [facility] Creatinine 1.78 (H) 0.57 - 1.25 mg/dL [facility] Glucose 336 (H) 70 - 105 mg/dL [facility] Calcium 9.4 8.4 - 10.2 mg/dL [facility] EGFR 38Comment: ESTIMATED GFR IS mL/min/1.73 sq m [facility] NOT ACCURATE [facility] CLEARANCE IN PREDICTING GLOMERULAR FILTRATION RATE. ESTIMATED GFR IS NOT APPLICABLE FOR DIALYSIS PATIENTS. Specimen Blood Narrative Performed At Fasting [facility] Performing Organization Address City/State/Zipcode Phone Number [facility] [address] [place] [address] CENTER after 03/26/2017 Insurance Payer Benefit Plan / Group Subscriber ID Type Phone Address MEDICARE MEDICARE A B xxxxxxxxxx Medicare MCR SUPPLEMENT/INDIVIDUAL AARP/[facility] xxxxxxxxxxx [facility] Advance Directives For more information, please contact:[address] [phone] Code Status Date Activated Date Inactivated Comments Full Code 09/03/2017 3:06 AM 09/06/2017 6:11 PM This code status was determined by: Patient
--- OUTSIDE RECORDS SUMMARY | 2018-03-27 19:29 | XMS REPORT ---
:1945 [facility] [address] [place] [address] [address] [address] Care Team Providers Name Role Phone AKR AKBAR Unavailable Unavailable Problems This patient has no known problems. Allergies, Adverse Reactions, Alerts This patient has no known allergies or adverse reactions. Medications This patient has no known medications. Results Test Description Test Time Test Comments Text Results Atomic Results Result Comments MISCELLANEOUS LAB ORDER 2017-09-12 09:38:00 Test Item Value Reference Range Comments SCAN RESULT (test mwwj=[id number]) CSF CULTURE + GRAM [id number] 17:06:00 Test Item Value Reference Range Comments CULTURE (BEAKER) (test inif=8227) No growth GRAM STAIN RESULT (BEAKER) (test No WBCs qsmd=1410) GRAM STAIN RESULT (BEAKER) (test No organisms seen vuhd=42372) HSV 1/2 PCR, [id number] 14:20:00 Test Item Value Reference Range Comments HSV BY PCR (BEAKER) (test nssv=623) NEGATIVE NEGATIVE Herpes Simplex Virus (HSV) not detected.These assays were performed by real- time PCR utilizing fluorogenic hydrolysis probe technology for the detection of Herpes Simplex Virus-1 and/or Herpes Simplex Virus-2 in approved specimens. A 154 base pair region of the HSV-1 and HSV-2 UL5 gene is amplified, and typing is achieved by using type specific probes. An internal control is used to confirm PCR amplification. Genetic variation and other factors can affect the accuracy of nucleic acid testing; therefore, the results should be interpreted in light of clinical data.This test was developed and its performance characteristics determined by the [facility]ology Department, Section of Molecular Pathology. It has not been cleared or approved by the U.S. Food and Drug Administration (FDA), as FDA approval is not required for clinical use of the test. Validation was done as required by the Clinical Laboratory Amendments of 1988.MARIBELL TITER AND [id number] 10:36:00 Test Item Value Reference Range Comments MARIBELL TITER (BEAKER) (test lkqp=7167) :40 MARIBELL PATTERN (BEAKER) (test lvml=9200) Speckled POCT-GLUCOSE [id number] 08:31:00 Test Item Value Reference Range Comments POC-GLUCOSE METER (BEAKER) 321 mg/dL 70-110 Notified MARCE REBOLLAR/TESTED AT [facility] (test kqrj=7095) [address] [place], [place] [id number] POCT-GLUCOSE [id number] 05:11:00 Test Item Value Reference Range Comments POC-GLUCOSE METER (BEAKER) 289 mg/dL 70-110 TESTED AT [address] (test skhr=5840) [place] [id number] CRYPTOCOCCAL ANTIGEN, [id number] 00:44:00 Test Item Value Reference Range Comments CRYPTOCOCCAL ANTIGEN, CSF (BEAKER) (test Negative Negative, Interference cliq=663) VDRL, [id number] 00:30:00 Test Item Value Reference Range Comments SYPHILIS VDRL QUANTITATION CSF (BEAKER) (test Nonreactive Nonreactive ogtf=658) POCT-GLUCOSE [id number] 19:15:00 Test Item Value Reference Range Comments POC-GLUCOSE METER (BEAKER) 383 mg/dL 70-110 TESTED AT [address] (test gcir=6003) [place] [id number] POCT-GLUCOSE [id number] 18:43:00 Test Item Value Reference Range Comments POC-GLUCOSE METER (BEAKER) 429 mg/dL 70-110 Notified MARCE REBOLLAR/TESTED AT [facility] (test uogc=2793) [address] [place], [place] [id number] CSF CELL COUNT [id number] 17:48:00 Test Item Value Reference Range Comments APPEARANCE CSF (BEAKER) (test fjfd=386) Clear Clear COLOR CSF (BEAKER) (test ebaf=553) Colorless Colorless RBC CSF (BEAKER) (test yiov=360) 7 /cu mm 0-5 WBC CSF (BEAKER) (test qnbo=8136) 0 /cu mm <=5 RBCS FRESH (BEAKER) (test mjee=7304) 100% Fresh NUMBER OF CELLS DIFF'D (BEAKER) (test nfbf=1665) 0 TUBE NUMBER CSF (BEAKER) (test qolv=2856) 1 POCT-GLUCOSE [id number] 17:38:00 Test Item Value Reference Range Comments POC-GLUCOSE METER (BEAKER) 438 mg/dL 70-110 Notified MARCE REBOLLAR/TESTED AT [facility] (test jzav=5210) [address] [place] [address] PROTEIN, [id number] 15:45:00 Test Item Value Reference Range Comments PROTEIN CSF (BEAKER) (test ejrh=206) 73 mg/dL 15-45 GLUCOSE, [id number] 15:44:00 Test Item Value Reference Range Comments GLUCOSE CSF (BEAKER) (test kdhz=685) 165 mg/dL 40-70 POCT-GLUCOSE [id number] 12:16:00 Test Item Value Reference Range Comments POC-GLUCOSE METER (BEAKER) 375 mg/dL 70-110 Notified MARCE REBOLLAR/TESTED AT [facility] (test orgv=3435) [address] [place] [address] POCT-GLUCOSE [id number] 07:51:00 Test Item Value Reference Range Comments POC-GLUCOSE METER (BEAKER) 279 mg/dL 70-110 TESTED AT [address] (test qczw=4801) [place] [id number] ANTI-NUCLEAR ANTIBODY (MARIBELL)2017-09-05 05:34:00 Test Item Value Reference Range Comments ANTI-NUCLEAR ANTIBODY (MARIBELL) (BEAKER) (test Positive Negative axgu=380) POCT-GLUCOSE [id number] 21:44:00 Test Item Value Reference Range Comments POC-GLUCOSE METER (BEAKER) 244 mg/dL 70-110 TESTED AT [address] (test sdli=3924) [facility] [address] MR, MRA, BRAIN, WITHOUT [id number] 21:12:00Reason for exam:-> Ischemic Stroke EvaluationFINAL REPORT MRA head and neck Comparison: None Reason for exam: Encephalopathy Discussion: 2 D and 3 -D woke-gi-nfkyin MRA of the head and neck was provided with maximal intensity projection 3-D reconstructions of the cervical and intracranial arterial vasculatures. NASCETcriteria are utilized when considering stenosis. Bilateral carotid bulb atherosclerotic stenosis is estimated at 40% by NASCET criteria. Otherwise normal cervical carotid system flow. Normal flow cervical segment vertebral arteries. Normal flow intracranial internal carotid arteries and in the carotidterminus branches proximally. Normal vertebrobasilar and proximal posterior cerebral artery flow. Impressions: Mild bilateral carotid bulb atherosclerotic stenosis. Signed: Sherrie Soto Verified Date/Time: 21:12:06 Electronically signed by: SHERRIE SOTO M.D. on 2017 09:12 PMMR, MRA, NECK, WITHOUT IV [id number] 21:12:00Reason for exam:->Ischemic Stroke EvaluationFINAL REPORT MRA head and neck Comparison: None Reason for exam: Encephalopathy Discussion: 2 D and 3-D ziel-dl-kqmbhh MRA of the head and neck was provided with maximal intensity projection 3-D reconstructions of the cervical and intracranial arterial vasculatures. NASCETcriteria are utilized when considering stenosis. Bilateral carotid bulb atherosclerotic stenosis is estimated at 40% by NASCET criteria. Otherwise normal cervical carotid system flow. Normal flow cervical segment vertebral arteries. Normal flow intracranial internal carotid arteries and in the carotidterminus branches proximally. Normal vertebrobasilar and proximal posterior cerebral artery flow. Impressions: Mild bilateral carotid bulb atherosclerotic stenosis. Signed: Sherrie Soto Verified Date/Time : 09/04/2017 21:12:06 Electronically signed by: SHERRIE SOTO M.D. on 09:12 PMMR, BRAIN, WITHOUT [id number] 21:09:00FINAL REPORT MRI brain Comparison: None Reason for exam: Encephalopathyencephalopathy, history of prostate CA; focal neurological deficits suspected Discussion: Multiplanar MR imaging the brain was performed using T1, T2, FLAIR, FFE, diffusion, and ADC map imaging. Imaging discussed with the patient's nurse Nayeli with instructions to contact the primary team at this finalized report. There are no intracranial hematomas, mass effect , shift, or extra-axial collections. There are no areas of abnormal diffusion restriction. Chronic microvascular changes are present inboth cerebral hemispheres. There is mild to moderate [...] sequence. Flow-voids are seen in the basilar andinternal carotid arteries as well as in the large posterior dural sinuses. The pineal, sella, and craniocervical junction regions are unremarkable. The visualized orbital contents, paranasal sinuses, skullbase and surrounding soft tissues are unremarkable. . Impressions: 1. Signal alterations within multiple cerebral sulci, etiology unknown. CT head may provide additional helpful information. Ifindicated consider CSF analysis. Subarachnoid hemorrhage could not be excluded. 2. Ventricular prominence. Correlate clinically for communicating hydrocephalus. Signed: Sherrie Soto Verified Date/Time: 09/04/2017 21:09:29 Electronically signed by: SHERRIE SOTO M.D. on 09/04 09:09 PMPOCT-GLUCOSE [id number] 18:53:00 Test Item Value Reference Range Comments POC-GLUCOSE METER (BEAKER) 243 mg/dL 70-110 TESTED AT [address] (test fwpx=2702) [facility] [address] POCT-GLUCOSE [id number] 14:28:00 Test Item Value Reference Range Comments POC-GLUCOSE METER (BEAKER) 363 mg/dL 70-110 TESTED AT [address] (test gajg=2980) [facility] [address] POCT-GLUCOSE [id number] 14:22:00 Test Item Value Reference Range Comments POC-GLUCOSE METER (BEAKER) 341 mg/dL 70-110 TESTED AT [address] (test bgxs=8145) [facility] [address] POCT-GLUCOSE [id number] 14:18:00 Test Item Value Reference Range Comments POC-GLUCOSE METER (BEAKER) 441 mg/dL 70-110 TESTED AT [address] (test yqzm=6219) [place] [id number] POCT-GLUCOSE [id number] 12:12:00 Test Item Value Reference Range Comments POC-GLUCOSE METER (BEAKER) 326 mg/dL 70-110 TESTED AT [address] (test eidz=9654) [place] [id number] POCT-GLUCOSE [id number] 08:50:00 Test Item Value Reference Range Comments POC-GLUCOSE METER (BEAKER) 153 mg/dL 70-110 TESTED AT [address] (test dpeg=9520) [facility] [address] [id number] 07:11:00 Test Item Value Reference Range Comments RPR SCREEN (BEAKER) (test lkub=377) Nonreactive Nonreactive POCT-GLUCOSE [id number] 21:31:00 Test Item Value Reference Range Comments POC-GLUCOSE METER (BEAKER) 306 mg/dL 70-110 Notified MARCE REBOLLAR/TESTED AT [facility] (test xuml=5696) [address] [place] [address] POCT-GLUCOSE [id number] 17:42:00 Test Item Value Reference Range Comments POC-GLUCOSE METER (BEAKER) 395 mg/dL 70-110 TESTED AT [address] (test zjck=8983) [place] [id number] EEG AWAKE AND [id number] 16:15:00Reason for exam:->SeizuresDate(s) of EE09/03/17DATE OF REPORT: 09/03/17MRN: [id number]: [id number] Number: [id number] Location: Inpatient RoomStart time: 14:30Stop time: 14:51ICD-10: R56.9CPT Code: 21966 HISTORY: Mr. Powers is a RH 71 y.o. 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 DESCRIPTION OF RECORD: During the [...] remains, consider additional EEG recordings. Elisa Jordan MDNeurophysiology Fellow, [id number] note: I personally reviewed this EEG record in its entirety and I agree with the details of this report. Martha Pace MD Clinical Neurophysiology/Epilepsy Attending URINALYSIS W/ REFLEX URINE [id number] 11:56:00 Test Item Value Reference Range Comments COLOR (BEAKER) (test oaed=364) Light Yellow CLARITY (BEAKER) (test iqht=524) Clear SPECIFIC GRAVITY UA (BEAKER) (test qelh=111) 1.005 1.001-1.035 PH UA (BEAKER) (test gkrd=850) 5.0 5.0-8.0 PROTEIN UA (BEAKER) (test kfkb=120) Negative Negative GLUCOSE UA (BEAKER) (test bwhr=948) 300 mg/dL Negative KETONES UA (BEAKER) (test bwen=572) Trace Negative BILIRUBIN UA (BEAKER) (test ejgr=560) Negative Negative BLOOD UA (BEAKER) (test xyza=523) Negative Negative NITRITE UA (BEAKER) (test glst=761) Negative Negative LEUKOCYTE ESTERASE UA (BEAKER) (test jyji=718) Negative Negative UROBILINOGEN UA (BEAKER) (test iyor=095) 0.2 mg/dL 0.2-1.0 RBC UA (BEAKER) (test uguv=519) < /HPF WBC UA (BEAKER) (test wahx=859) 0 /HPF MUCUS (BEAKER) (test olrm=1750) Rare SOURCE(BEAKER) (test uibj=9095) SEDIMENTATION [id number] 11:22:00 Test Item Value Reference Range Comments SEDIMENTATION RATE, ERYTHROCYTE (BEAKER) (test 86 mm/HR 0-40 mgca=621) HEMOGLOBIN [id number] 10:37:00 Test Item Value Reference Range Comments HEMOGLOBIN A1C (BEAKER) (test qvbc=619) 10.1 % 4.3-6.1 FastingVITAMIN [id number] 09:09:00 Test Item Value Reference Range Comments VITAMIN B12 (BEAKER) (test rrav=345) 717 pg/mL 213-816 [id number] 08:49:00 Test Item Value Reference Range Comments HOMOCYSTEINE (BEAKER) (test dzpv=701) 14.8 umol/L 5.1-15.4 FastingPOCT-GLUCOSE [id number] 08:39:00 Test Item Value Reference Range Comments POC-GLUCOSE METER (BEAKER) 329 mg/dL 70-110 Notified MARCE REBOLLAR/TESTED AT [facility] (test jhbn=3696) [address] [facility] [address] TSH/FREE T4 IF [id number] 07:33:00 Test Item Value Reference Range Comments THYROID STIMULATING HORMONE (BEAKER) (test 0.49 uIU/mL 0.35-4.94 nxgv=174) FastingHIV-1 ANTIGEN WITH HIV-1/2 [id number] 07:28:00 Test Item Value Reference Range Comments HIV-1 ANTIGEN WITH HIV 1\T\2 ANTIBODY (2) Nonreactive Nonreactive (BEAKER) (test zcva=3374) C-REACTIVE [id number] 07:08:00 Test Item Value Reference Range Comments C-REACTIVE PROTEIN (BEAKER) (test tgsr=459) 0.68 mg/dL 0.00-0.50 LIPID [id number] 07:08:00 Test Item Value Reference Range Comments TRIGLYCERIDES (BEAKER) (test tndq=385) 155 mg/dL CHOLESTEROL (BEAKER) (test txxm=155) 155 mg/dL HDL CHOLESTEROL (BEAKER) (test wqng=247) 35 mg/dL LDL CHOLESTEROL CALCULATED (BEAKER) (test 89 mg/dL bqyp=922) Triglyceride Reference Range: Low Risk <150 Borderline 150- 199 High Risk 200-499 Very High Risk >=500Cholesterol Reference Range: Low Risk <200 Borderline 200-239 High Risk > 240HDL Cholesterol Reference Range: Low Risk >=60 High Risk <40LDL Cholesterol Reference Range: Optimal <100 Near Optimal 100-129 Borderline 130-159 High 160-189 Very High >=190 FastingBASIC METABOLIC [id number] 07:08:00 Test Item Value Reference Range Comments SODIUM (BEAKER) (test 137 meq/L 136-145 nhqr=575) POTASSIUM (BEAKER) (test 4.2 meq/L 3.5-5.1 hkzk=692) CHLORIDE (BEAKER) (test 103 meq/L 98-107 cekw=404) CO2 (BEAKER) (test 23 meq/L 22-29 mzul=571) BLOOD UREA NITROGEN 34 mg/dL 7-21 (BEAKER) (test xgmr=104) CREATININE (BEAKER) (test 1.78 mg/dL 0.57-1.25 qcgx=573) GLUCOSE RANDOM (BEAKER) 336 mg/dL 70-105 (test pavs=136) CALCIUM (BEAKER) (test 9.4 mg/dL 8.4-10.2 dpve=226) EGFR (BEAKER) (test 38 mL/min/1.73 sq m ESTIMATED GFR IS NOT crho=3759) ACCURATE CREATININE CLEARANCE IN PREDICTING GLOMERULAR FILTRATION RATE. ESTIMATED GFR IS NOT APPLICABLE FOR DIALYSIS PATIENTS. FastingHEPATIC FUNCTION [id number] 07:08:00 Test Item Value Reference Range Comments TOTAL PROTEIN (BEAKER) (test ccij=344) 7.0 gm/dL 6.0-8.3 ALBUMIN (BEAKER) (test xarc=9288) 4.0 g/dL 3.5-5.0 BILIRUBIN TOTAL (BEAKER) (test evwu=417) 0.5 mg/dL 0.2-1.2 BILIRUBIN DIRECT (BEAKER) (test nloe=678) 0.2 mg/dL 0.1-0.5 ALKALINE PHOSPHATASE (BEAKER) (test umtv=816) 77 U/L 40-150 AST (SGOT) (BEAKER) (test aykz=858) 12 U/L 5-34 ALT (SGPT) (BEAKER) (test mstl=735) 12 U/L 6-55 FastingLIPID [id number] 07:06:00 Test Item Value Reference Range Comments TRIGLYCERIDES (BEAKER) (test wwfc=844) 160 mg/dL CHOLESTEROL (BEAKER) (test ehfn=444) 159 mg/dL HDL CHOLESTEROL (BEAKER) (test jpyw=800) 37 mg/dL LDL CHOLESTEROL CALCULATED (BEAKER) (test 90 mg/dL anpy=312) Triglyceride Reference Range: Low Risk <150 Borderline 150- 199 High Risk 200-499 Very High Risk >=500Cholesterol Reference Range: Low Risk <200 Borderline 200-239 High Risk > 240HDL Cholesterol Reference Range: Low Risk >=60 High Risk <40LDL Cholesterol Reference Range: Optimal <100 Near Optimal 100-129 Borderline 130-159 High 160-189 Very High >=[id number] 06:55:00 Test Item Value Reference Range Comments AMMONIA (BEAKER) (test sqhi=468) 13 mol/L 18-72 PROTHROMBIN [id number] 06:33:00 Test Item Value Reference Range Comments PROTIME (BEAKER) (test hhfx=523) 16.5 seconds 11.7-14.7 INR (BEAKER) (test hodf=625) 1.3 <=5.9 RECOMMENDED COUMADIN/WARFARIN INR THERAPY RANGESSTANDARD DOSE: 2.0 - 3.0 Includes: PROPHYLAXIS forvenous thrombosis, systemic embolization; TREATMENT for venous thrombosis and/or pulmonary embolus.HIGH RISK: Target INR is 2.5-3.5 for patients with mechanical heart valves.CBC W/PLT COUNT & AUTO [id number] 06:21:00 Test Item Value Reference Range Comments WHITE BLOOD CELL COUNT (BEAKER) (test oyyd=243) 8.8 K/ L 3.5-10.5 RED BLOOD CELL COUNT (BEAKER) (test sjsw=028) 4.13 M/ L 4.63-6.08 HEMOGLOBIN (BEAKER) (test hhsg=993) 11.8 GM/DL 13.7-17.5 HEMATOCRIT (BEAKER) (test qmbq=662) 34.7 % 40.1-51.0 MEAN CORPUSCULAR VOLUME (BEAKER) (test ulqc=345) 84.0 fL 79.0-92.2 MEAN CORPUSCULAR HEMOGLOBIN (BEAKER) (test 28.6 pg 25.7-32.2 llqa=241) MEAN CORPUSCULAR HEMOGLOBIN CONC (BEAKER) (test 34.0 GM/DL 32.3-36.5 ozhv=379) RED CELL DISTRIBUTION WIDTH (BEAKER) (test 13.0 % 11.6-14.4 vxnb=440) PLATELET COUNT (BEAKER) (test ptcp=810) 203 K/CU MM 150-450 MEAN PLATELET VOLUME (BEAKER) (test bbmg=986) 9.5 fL 9.4-12.4 NUCLEATED RED BLOOD CELLS (BEAKER) (test 0 /100 WBC 0-0 ymlj=603) NEUTROPHILS RELATIVE PERCENT (BEAKER) (test 77 % oehz=632) LYMPHOCYTES RELATIVE PERCENT (BEAKER) (test 15 % kovx=051) MONOCYTES RELATIVE PERCENT (BEAKER) (test 7 % dach=836) EOSINOPHILS RELATIVE PERCENT (BEAKER) (test 0 % usop=787) BASOPHILS RELATIVE PERCENT (BEAKER) (test 1 % xnwf=285) NEUTROPHILS ABSOLUTE COUNT (BEAKER) (test 6.73 K/ L 1.78-5.38 vlho=555) LYMPHOCYTES ABSOLUTE COUNT (BEAKER) (test 1.28 K/ L 1.32-3.57 kkic=311) MONOCYTES ABSOLUTE COUNT (BEAKER) (test 0.59 K/ L 0.30-0.82 vbgz=805) EOSINOPHILS ABSOLUTE COUNT (BEAKER) (test 0.00 K/ L 0.04-0.54 jmnp=561) BASOPHILS ABSOLUTE COUNT (BEAKER) (test 0.07 K/ L 0.01-0.08 iywl=581) IMMATURE GRANULOCYTES-RELATIVE PERCENT (BEAKER) 1 % 0-1 (test ijyj=3778)
--- NOTE | 2018-03-27 20:57 | RAD REPORT ---
EXAM DESCRIPTION: CT - Head Brain Wo Cont - 03/27/2018 8:46 pm CLINICAL HISTORY: Fall, head injury, headache COMPARISON: CT head August 2017 TECHNIQUE: Axial 5 mm thick images of the head were obtained without IV contrast. All CT scans are performed using dose optimization technique as appropriate and may include automated exposure control or mA/KV adjustment according to patient size. FINDINGS: No intracranial hemorrhage, mass, edema or shift of mid-line structures. No acute infarcti on changes seen. Patient has prominent atrophy and chronic ischemic change. Ventricles are in proport ion to the volume loss. Arterial calcifications are present. Intracranial findings are similar to the comparison. Mastoid air cells and visualized portions of the paranasal sinuses are clear. No acute bony findings. IMPRESSION: Prominent atrophy and chronic ischemic change similar to August. No acute intracranial finding.
[2018-03-27] MEDS ORDERED: TETRACAINE HCL 0.5% 2ML OPTH ONE (21:39)
[2018-03-27] MEDS ORDERED: LIDOCAINE VISCOUS 2% SOLN 15 ML UDC ONE (21:39)
[2018-03-27] MEDS ORDERED: ACETAMINOPHEN 500 MG TAB ONE (21:39)
[2018-03-27] MEDS ORDERED: LIDOCAINE JELLY 2%- 5 ML TUBE ONE (21:43)
--- NOTE | 2018-03-27 22:03 | EDPHYS ---
Physician Documentation [facility] Name: Agustin Petty Sr Age: 72 yrs Sex: Male : 1945 Arrival Date: 03/27/2018 Time: 19:27 Bed 14 Private MD: Michael Madrid ED Physician Jarrod Allen HPI: 03/27 22:08 This 72 yrs old Male presents to ER via Wheelchair with complaints of Fall wa Injury, Head Injury-Adult, Headache. 22:08 Details of fall: The patient fell from seated position, out of a chair. Onset: The wa symptoms/episode began/occurred 2 day(s) ago. Associated injuries: The patient sustained injury to the head. Severity of symptoms: At their worst the symptoms were moderate, in the emergency department the symptoms are actually worse. The patient has not experienced similar symptoms in the past. The patient has not recently seen a physician. c/o L side facial headache. believes as a result of a fall 2 days ago where he hit his head 2 days ago. no LOC. no vomiting. states pain worse when lays on the left side of his face where the face touches the sheets. Historical: - Allergies: 19:39 No Known Allergies; aj1 - Home Meds: 19:39 Januvia 50 mg oral tab 1 tabs once daily [Active]; rosuvastatin 20 mg oral tab 1 tab aj1 once daily [Active]; metformin 1,000 mg Oral TG24 1 tab 2 times per day [Active]; alendronate 70 mg/75 mL oral soln 75 mL once wkly [Active]; aspirin 81 mg Oral chew 1 tab once daily [Active]; multivitamin oral oral [Active]; Insulin: Novolin R 30 units Sub-Q [Active]; - PMHx: 19:39 Diabetes - NIDDM; Hypertension; Hyperlipidemia; aj1 - Immunization history: Last tetanus immunization: < 5 years ago. - Social history:: Smoking status: Patient/guardian denies using tobacco. - Ebola Screening: : Patient denies travel to an Ebola-affected area in the 21 days before illness onset. - Family history:: not pertinent. - Hospitalizations: : No recent hospitalization is reported. ROS: 22:14 Constitutional: Negative for fever, chills, and weight loss, Eyes: Negative for injury, wa pain, redness, and discharge, ENT: Negative for injury, pain, and discharge, Neck: Negative for injury, pain, and swelling, Cardiovascular: Negative for chest pain, palpitations, and edema, Respiratory: Negative for shortness of breath, cough, wheezing, and pleuritic chest pain, Abdomen/GI: Negative for abdominal pain, nausea, vomiting, diarrhea, and constipation, Back: Negative for injury and pain, : Negative for injury, bleeding, discharge, and swelling, Skin: Negative for injury, rash, and discoloration, Psych: Negative for depression, anxiety, suicide ideation, homicidal ideation, and hallucinations. 22:14 Neuro: Positive for headache, of the left side of face. 22:14 All other systems are negative. Exam: 22:15 Constitutional: This is a well developed, well nourished patient who is awake, alert, wa and in no acute distress. Eyes: Pupils equal round and reactive to light, extra-ocular motions intact. Lids and lashes normal. Conjunctiva and sclera are non-icteric and not injected. Cornea within normal limits. Periorbital areas with no swelling, redness, or edema. ENT: Nares patent. No nasal discharge, no septal abnormalities noted. Tympanic membranes are normal and external auditory canals are clear. Oropharynx with no redness, swelling, or masses, exudates, or evidence of obstruction, uvula midline. Mucous membranes moist. Neck: Trachea midline, no thyromegaly or masses palpated, and no cervical lymphadenopathy. Supple, full range of motion without nuchal rigidity, or vertebral point tenderness. No Meningismus. Chest/axilla: Normal chest wall appearance and motion. Nontender with no deformity. No lesions are appreciated. Cardiovascular: Regular rate and rhythm with a normal S1 and S2. No gallops, murmurs, or rubs. Normal PMI, no JVD. No pulse deficits. Respiratory: Lungs have equal breath sounds bilaterally, clear to auscultation and percussion. No rales, rhonchi or wheezes noted. No increased work of breathing, no retractions or nasal flaring. Abdomen/GI: Soft, non-tender, with normal bowel sounds. No distension or tympany. No guarding or rebound. No evidence of tenderness throughout. Back: No spinal tenderness. No costovertebral tenderness. Full range of motion. MS/ Extremity: Pulses equal, no cyanosis. Neurovascular intact. Full, normal range of motion. 22:15 Skin: rash can be described as erythematous, vesicular, on the left frontoparietal area extending to the level of the L eyebrow. 22:15 Neuro: Orientation: is normal, Cranial nerves: grossly normal, Motor: is normal. 22:17 Head/face: Noted is rash, L forehead/facial distribution. wa Vital Signs: 19:31 BP 125 / 61; Pulse 74; Resp 18; Temp 99.0; Pulse Ox 100% on R/A; Weight 74.84 kg (R); aj1 Pain 3/10; 21:45 BP 124 / 58; Pulse 63; Resp 18; Pulse Ox 100% on R/A; tl3 22:35 BP 132 / 64; Pulse 65; Resp 18; Pulse Ox 100% on R/A; tl3 [place] Coma Score: 19:31 Eye Response: spontaneous(4). Verbal Response: oriented(5). Motor Response: obeys aj1 commands(6). Total: 15. Trauma Score (Adult): 19:31 Eye Response: spontaneous(1); Verbal Response: oriented(1); Motor Response: obeys aj1 commands(2); Systolic BP: > 89 mm Hg(4); Respiratory Rate: 10 to 29 per min(4); [place] Score: 15; Trauma Score: 12 MDM: 19:47 Patient medically screened. wa 22:17 Differential diagnosis: symptoms consistent with zoster. However pt c/o fall with head wa injury and on ASA. will check head CT. will give a dose of tylenol and apply lidocaine gel to area of rash. will reassess. Data reviewed: vital signs, nurses notes, radiologic studies. Test interpretation: by ED physician or midlevel provider: normal head CT. . Response to treatment: the patient's symptoms have markedly improved after treatment, pain resolved in ED with lidocaine application. pt hyperglycemia. will hold steroids as potential regimen for zoster. will script for acyclovir and give close f/u. discussed what to look out for to be immediately concerned for ophthalmic involvement and to seek immediate care if that occurs.. 03/27 20:27 Order name: CT Head Brain wo Cont; Complete Time: 21:52 wa 03/27 20:27 Order name: Accucheck Blood Glucose; Complete Time: 21:44 wa Administered Medications: 21:41 Drug: Tylenol 1000 mg Route: PO; tl3 22:36 Follow up: Response: No adverse reaction tl3 21:41 Drug: Lidocaine-Tetracaine 1 application Route: Topical; Site: affected area; tl3 22:36 Follow up: Response: No adverse reaction tl3 Point of Care Testing: Blood Glucose: 21:44 Blood Glucose: 301 mg/dL; tl3 Ranges: Critical Glucose Levels:Adult <50 mg/dl or >400 mg/dl <40 mg/dl or >180 mg/dl Disposition: 03/27/18 22:02 Discharged to Home. Impression: Acute Headache, Acute Zoster involving the Left frontal head involving the left eyelid. - Condition is Stable. - Discharge Instructions: Shingles, [id number]. - Prescriptions for Acyclovir 800 mg Oral Tablet - take 1 tablet by ORAL route 5 times per day for 10 days; 50 tablet. - Medication Reconciliation Form, Thank You Letter, Antibiotic Education, Prescription Opioid Use form. - Follow up: Private Physician; When: 2 - 3 days; Reason: Recheck today's complaints. - Problem is new. - Symptoms have improved. - Notes: apply lidocaine jel to area of pain times a day as needed for relief. please return to the ER immediately or see your doctor to be referred to an eye doctor if the rash involve begin to involve your left eye as discussed with you. Signatures: Dispatcher [employer] Lizbeth Harrington RN RN aj1 Jarrod Allen MD MD wa Lowrey, Tammy, RN RN tl3 Corrections: (The following items were deleted from the chart) 22:37 22:02 03/27/2018 22:02 Discharged to Home. Impression: Acute Headache; Acute Zoster tl3 involving the Left frontal head involving the left eyelid. Condition is Stable. Forms are Medication Reconciliation Form, Thank You Letter, Antibiotic Education, Prescription Opioid Use. Follow up: Private Physician; When: 2 - 3 days; Reason: Recheck today's complaints. Problem is new. Symptoms have improved. wa
--- NOTE | 2018-03-27 22:03 | ER ---
Nurse's Notes [facility] Name: Agustin Petty Sr Age: 72 yrs Sex: Male : 1945 Arrival Date: 03/27/2018 Time: 19:27 Bed 14 Private MD: Michael Madrid Diagnosis: Acute Headache;Acute Zoster involving the Left frontal head involving the left eyelid Presentation: 03/27 19:31 Presenting complaint: Patient states: "I fell Sunday or Sunday, I'm not sure. I was aj1 getting up off the toilet and I fell against the wall and hit my head." Bruising noted to left scalp. Denies LOC, vomiting. Patient reports that he remembers falling he slipped. Patient takes ASA 81 mg daily. Care prior to arrival: None. Mechanism of Injury: Fall from standing position. Trauma event details: Injury occurred in the [facility]. 19:31 Acuity: ALVIN 3 aj1 19:31 Method Of Arrival: Wheelchair aj1 19:36 Transition of care: patient was not received from another setting of care. Onset of aj1 symptoms was March 23, 2018. Risk Assessment: Do you want to hurt yourself or someone else? Patient reports no desire to harm self or others. Initial Sepsis Screen: Does the patient meet any 2 criteria? No. Patient's initial sepsis screen is negative. Does the patient have a suspected source of infection? No. Patient's initial sepsis screen is negative. Trauma Activation: Not Applicable Physician: ED Physician; Name: ; Notified At: ; Arrived At: Physician: General Surgeon; Name: ; Notified At: ; Arrived At: Physician: Radiology; Name: ; Notified At: ; Arrived At: Physician: Respiratory; Name: ; Notified At: ; Arrived At: Physician: Lab; Name: ; Notified At: ; Arrived At: Historical: - Allergies: 19:39 No Known Allergies; aj1 - Home Meds: 19:39 Januvia 50 mg oral tab 1 tabs once daily [Active]; rosuvastatin 20 mg oral tab 1 tab aj1 once daily [Active]; metformin 1,000 mg Oral TG24 1 tab 2 times per day [Active]; alendronate 70 mg/75 mL oral soln 75 mL once wkly [Active]; aspirin 81 mg Oral chew 1 tab once daily [Active]; multivitamin oral oral [Active]; Insulin: Novolin R 30 units Sub-Q [Active]; - PMHx: 19:39 Diabetes - NIDDM; Hypertension; Hyperlipidemia; aj1 - Immunization history: Last tetanus immunization: < 5 years ago. - Social history:: Smoking status: Patient/guardian denies using tobacco. - Ebola Screening: : Patient denies travel to an Ebola-affected area in the 21 days before illness onset. - Family history:: not pertinent. - Hospitalizations: : No recent hospitalization is reported. Screenin:31 Abuse screen: Denies threats or abuse. Denies injuries from another. Tuberculosis aj1 screening: No symptoms or risk factors identified. 21:45 Nutritional screening: No deficits noted. Fall Risk Fall in past 12 months (25 points). tl3 Primary Survey: 19:31 A: Airway: patent. Breathing/Chest: Respiratory pattern: regular. Circulation: Skin aj1 color: pink. Disability Alert. Assessment: 19:31 General: Appears in no apparent distress. comfortable, Behavior is calm, cooperative, aj1 appropriate for age. Pain: Complains of pain in left frontal area and left side of forehead Pain currently is 3 out of 10 on a pain scale. Neuro: Level of Consciousness is awake, alert, obeys commands, Speech is normal. Cardiovascular: Patient's skin is warm and dry. Respiratory: Airway is patent Respiratory effort is even, unlabored, Respiratory pattern is regular, symmetrical. 21:45 Reassessment: Patient appears in no apparent distress at this time. No changes from tl3 previously documented assessment. Patient and/or family updated on plan of care and expected duration. Pain level reassessed. Patient is alert, oriented x 3, equal unlabored respirations, skin warm/dry/pink. 22:35 Reassessment: Patient appears in no apparent distress at this time. No changes from tl3 previously documented assessment. Patient and/or family updated on plan of care and expected duration. Pain level reassessed. Patient is alert, oriented x 3, equal unlabored respirations, skin warm/dry/pink. Vital Signs: 19:31 BP 125 / 61; Pulse 74; Resp 18; Temp 99.0; Pulse Ox 100% on R/A; Weight 74.84 kg (R); aj1 Pain 3/10; 21:45 BP 124 / 58; Pulse 63; Resp 18; Pulse Ox 100% on R/A; tl3 22:35 BP 132 / 64; Pulse 65; Resp 18; Pulse Ox 100% on R/A; tl3 [place] Coma Score: 19:31 Eye Response: spontaneous(4). Verbal Response: oriented(5). Motor Response: obeys aj1 commands(6). Total: 15. Trauma Score (Adult): 19:31 Eye Response: spontaneous(1); Verbal Response: oriented(1); Motor Response: obeys aj1 commands(2); Systolic BP: > 89 mm Hg(4); Respiratory Rate: 10 to 29 per min(4); [place] Score: 15; Trauma Score: 12 ED Course: 19:27 Patient arrived in ED. al2 19:28 Michael Madrid MD is Private Physician. al2 19:31 Patient has correct armband on for positive identification. aj1 19:31 Patient maintains SpO2 saturation greater than 95% on room air. aj1 19:34 Triage completed. aj1 19:39 Arm band placed on Patient placed in an exam room. aj1 19:47 Jarrod Allen MD is Attending Physician. wa 20:[address] vm2 20:36 Cadence Luis, MARCE is Primary Nurse. tl3 20:45 CT completed. Patient tolerated procedure well. Patient moved back from CT. nj 20:45 CT Head Brain wo Cont In Process Unspecified. EDMS 21:45 Pulse ox on. NIBP on. tl3 21:45 No provider procedures requiring assistance completed. Patient did not have IV access tl3 during this emergency room visit. Administered Medications: 21:41 Drug: Tylenol 1000 mg Route: PO; tl3 22:36 Follow up: Response: No adverse reaction tl3 21:41 Drug: Lidocaine-Tetracaine 1 application Route: Topical; Site: affected area; tl3 22:36 Follow up: Response: No adverse reaction tl3 Point of Care Testing: Blood Glucose: 21:44 Blood Glucose: 301 mg/dL; tl3 Ranges: Outcome: 22:02 Discharge ordered by . wa 22:37 Discharged to home via wheelchair. tl3 22:37 Condition: stable 22:37 Discharge instructions given to patient, Instructed on discharge instructions, follow up and referral plans. medication usage, Demonstrated understanding of instructions, follow-up care, medications, Prescriptions given X 2. 22:37 Patient left the ED. tl3 Signatures: Dispatcher [employer] EDMS Lizbeth Sanchez RN RN aj1 Justus Palma Victoria 2 Jarrod Allen MD MD wa Love, Angelica al2 Lowrey, Tammy, RN RN tl3 Corrections: (The following items were deleted from the chart) 19:40 19:31 Presenting complaint: Patient states: "I fell Sunday or Sunday, I'm not sure. I aj1 was getting up off the toilet and I fell against the wall and hit my head." Bruising noted to left scalp. Denies LOC, vomiting. Patient reports that he remembers falling he slipped. Patient denies taking blood thinners aj1
[2018-03-27 23:15] VITALS: TEMP 99; O2SAT 100
[2018-03-27 23:17] VITALS: BP 132/64
== END 2018-03-27 22:37 | disposition home or self-care (01) ==
LOC: ER 19:26
DX: B02.39 Other herpes zoster eye disease (principal); W07.XXXA Fall from chair, initial encounter; Y93.9 Activity, unspecified; Y92.9 Unspecified place or not applicable; Z79.82 Long term (current) use of aspirin; Z79.4 Long term (current) use of insulin; I10 Essential (primary) hypertension; E11.9 Type 2 diabetes mellitus without complications; E78.5 Hyperlipidemia, unspecified
CPT/HCPCS: 70450; 82962; 99285

== ENCOUNTER 2018-06-07 02:40 | Observation (INO) | payer OTHER, MEDICARE ==
--- OUTSIDE RECORDS SUMMARY | 2018-06-07 02:42 | XMS REPORT | Clinical Summary ---
:1945 Author Organization [facility]ORTL[facility] Address [address] [place] [address] Care Team Providers Name Role Phone Unavailable [...] 0 09/06/2017 Active TWIST LANCET) 28 gauge [facility] blood sugar Use as directed. [...] with long- term current use of insulin ([facility]) 09/03/2017 Orders Only General Internal Medicine after 06/06/2017 Social History Tobacco Use Types Packs/Day Years [...] 400 ms QTC Calculation(Bazett) 467 ms P [place] 45 degrees R [place] 61 degrees T [place] 91 degrees Normal sinus rhythm ST & [...] (7) Routine 09/03/2017 5:53 AM CDT after 06/06/2017 Results RHYTHM STRIP - SCAN (09/07/2017 11:11 AM CDT) Narrative Performed At POC-Glucose meter (09/06/2017 8:29 AM CDT)Only the most recent of17 resultswithin the time period is included. POC-Glucose Meter 321 (H)Comment: Notified 70 - 110 mg/dL [facility] RN /TESTED AT [address] [address] Specimen Blood Performing Organization Address [facility]/Zipcode Phone Number [address] [phone] [place] CSF culture + gram stain (09/05/2017 2:32 PM CDT) Result No growth [facility] Gram Stain Result No WBCs [facility] Gram Stain Result No organisms seen [facility] Specimen Cerebrospinal Fluid - CSF, tube 1 Performing Organization Address [facility] Phone Number [address] [phone] [place] Cryptococcal antigen, CSF (09/05/2017 2:31 PM CDT) Cryptococcal Antigen, CSF Negative Negative, Interference [facility] Specimen Cerebrospinal Fluid - CSF Performing Organization Address [facility] Phone Number [address] [phone] [place] CSF cell count with differential (09/05/2017 2:31 PM CDT) Appearance Clear Clear [facility] Color Colorless Colorless [facility] RBCs 7 (H) 0 - 5 /cu mm [facility] WBCs 0 <=5 /cu mm [facility] RBCs Fresh? 100% Fresh [facility] # of Cells Diff'd 0 [facility] Tube Number 1 [facility] Specimen Cerebrospinal Fluid - CSF Performing Organization Address City/[facility]/Zipcode Phone Number [address] [phone] [place] West Nile Virus, CSF, IgG and IgM [...] by other flavivirus infections (e.g. Dengue virus, Smyth encephalitis virus) may show cross-reactivity with WNV. Specimen Cerebrospinal Fluid - CSF Narrative Performed At Performing Lab [facility] *QDID [email or web address] [address] [place] [phone] Chanel Bob MD Performing Organization Address City/[facility] Phone Number [place] [address] [place] [address] VDRL, CSF (09/05/2017 2:31 PM CDT) VDRL, CSF NON-REACTIVE Nonreactive [facility] Specimen Cerebrospinal Fluid - CSF Performing Organization Address City/[facility]/Zipcode Phone Number [address] [address] [phone] [place] Protein, CSF (09/05/2017 2:31 PM CDT) Protein, CSF 73 (H) 15 - 45 mg/dL [facility] Specimen Cerebrospinal Fluid - CSF Performing Organization Address City/[facility]/Zipcode Phone Number [address] [phone] CENTER Glucose, CSF (09/05/2017 2:31 PM CDT) Glucose, CSF 165 (H) 40 - 70 mg/dL [facility] Specimen Cerebrospinal Fluid - CSF Performing Organization Address City/State/Zipcode Phone Number [facility] [address] [place] [address] CENTER Varicella zoster PCR, qualitative (09/05/2017 2:30 PM CDT) Source-Body Site CEREBROSPINAL FLUID [facility] VZV DNA,Qual.PCR NOT DETECTED [facility] Comment: INCORPORATED REFERENCE RANGE: NOT DETECTED This test was developed and its analytical performance characteristics have been determined by [facility]. It has not been cleared or approved by FDA. This assay has been validated pursuant to the CLIA regulations and is used for clinical purposes. Specimen Cerebrospinal Fluid - CSF Narrative Performed At Performing Lab [facility] *QDID [facility] [address] [place] [phone] Chanel Bob MD Performing Organization Address City/[facility]/Zipcode Phone Number [facility] [address] [address] [facility] CMV PCR Quantitative (09/05/2017 2:30 PM CDT)Only the most recent of2 resultswithin the time period is included. Scan Result [facility] Specimen Cerebrospinal Fluid Narrative Performed At Performing Organization Address City/State/[facility] Phone Number [facility] [address] [place] [address] HSV 1/2 PCR, Qualitative (09/05/2017 2:30 PM CDT) HSV, PCR NEGATIVE NEGATIVE [facility] Specimen Cerebrospinal Fluid - CSF Narrative Performed At Herpes Simplex Virus (HSV) not detected. [facility] These assays were performed by real-time PCR [...] and its performance characteristics determined by the [facility] Pathology Department, Section of Molecular Pathology.It has not been cleared or approved by the U.S. Food and Drug Administration (FDA), as FDA approval is not required for clinical use of the test.Validation was done as required by the Clinical Laboratory Amendments of 1988. Performing Organization Address City/State/Zipcode Phone Number [facility] [address] [place] [address] CENTER MR brain without IV contrast (09/04/2017 8:10 PM CDT) Narrative Performed At FINAL REPORT [facility] MRI brain Comparison: None Reason for exam: [...] 21:09:29 Performing Organization Address City/State/Zipcode Phone Number [facility] MRA neck without IV contrast (09/04/2017 8:10 PM CDT) Narrative Performed At FINAL REPORT [facility] MRA head and neck Comparison: None Reason for exam:Encephalopathy Discussion: 2 D and 3-D ccsz-bt-[id number] MRA of the head and neck was [...] exam: Encephalopathy Discussion: 2 D and 3-D ybax-fv-snanxl MRA of the head and neck was [...] 21:12:06 Performing Organization Address City/State/Zipcode Phone Number [facility] MRA head without IV contrast (09/04/2017 8:10 PM CDT) Narrative Performed At FINAL REPORT [facility] MRA head and neck Comparison: None Reason for exam:Encephalopathy Discussion: 2 D and 3-D mgeb-fh-sjhfut MRA of the head and neck was [...] exam: Encephalopathy Discussion: 2 D and 3-D dxst-tr-zbpyxh MRA of the head and neck was [...] Verified Date/Time: 09/04/2017 21:12:06 Performing Organization Address City/State/[facility] Phone Number [facility] RIS ECG 12 lead (09/03/2017 9:01 PM CDT) Narrative Performed At Ventricular Rate 82 BPM [facility] Atrial Rate 82 BPM P-R Interval 134 ms QRS Duration 78 ms Q-T Interval 400 ms QTC Calculation(Bazett) 467 ms P [place] 45 degrees R [place] 61 degrees T [place] 91 degrees Baseline artifact Normal sinus rhythm [...] 400 ms QTC Calculation(Bazett) 467 ms P [place] 45 degrees R [place] 61 degrees T [place] 91 degrees Baseline artifact Normal sinus rhythm ST & T wave abnormality, consider anterolateral ischemia Prolonged QT Abnormal ECG No previous ECGs available Confirmed by MD MENDES YOCHAI ([id number]) on 09/05/2017 7:11:02 AM Performing Organization Address City/[facility] Phone Number GE MUSE Thyroid peroxidase (TPO) antibody (09/03/2017 6:47 PM CDT) Thyroid Peroxidase Ab 4 <9 IU/mL [facility] Specimen Blood Narrative Performed At Performing Lab [facility] EZ [facility] [address] [address] Lex Mcneill MD, PhD, PORT[place] Performing Organization Address City/[facility] Phone Number [place] [address] [place] [address] MARIBELL Titer & Pattern (09/03/2017 6:47 PM CDT) MARIBELL Titer 1:40 [facility] MARIBELL Pattern Speckled [facility] Specimen Blood Performing Organization Address [facility] Phone Number [address] [address] [phone] [place] Anti-Nuclear Antibody (MARIBELL) (09/03/2017 6:47 PM CDT) MARIBELL Positive (A) Negative [facility] Specimen Blood Performing Organization Address [facility] Phone Number [address] [address] [phone] CENTER EEG AWAKE AND DROWSY (09/03/2017 2:51 PM CDT) Narrative Performed At Date(s) of EE09/03/17 GE [facility] DATE OF REPORT: 09/03/17 ACC: [id number] EEG Number: [id number] Test Location: Inpatient Room Start time: 14:30 Stop time: 14:51 ICD-10: R56.9 CPT Code: 90753 HISTORY: Mr. Petty is a RH 71 y.o. w/ IDDM, HTN, CAD c/b prior MIBPH s/p photoselective vaporization, and prior prostate CA s/p XRT (last completed in early 2016); he was transferred to [facility] on 09/03 for further evaluation of seizure-like episodes in the setting of cognitive decline and generalized weakness MEDICATIONS THAT COULD AFFECT EEG: None TECHNICAL SUMMARY: This is a digital video-EEG recorded with 32 input channels reviewed with bipolar and referential montages using the modified [employer] system nomenclature. DESCRIPTION OF RECORD: During the [...] of EE09/03/17 DATE OF REPORT: 09/03/17 ACC: [id number] EEG Number: [id number] Test Location: Inpatient Room Start time: 14:30 Stop time: 14:51 ICD-10: R56.9 CPT Code: 09197 HISTORY: Mr. Petty is a RH 71 y.o. w/ IDDM, HTN, CAD c/b prior MIBPH s/p photoselective vaporization, and prior prostate CA s/p XRT (last completed in early 2016); he was transferred to [facility] on 09/03 for further evaluation of seizure-like episodes in the setting of cognitive decline and generalized weakness MEDICATIONS THAT COULD AFFECT EEG: None TECHNICAL SUMMARY: This is a digital video-EEG recorded with 32 input channels reviewed with bipolar and referential montages using the modified [employer] system nomenclature. DESCRIPTION OF RECORD: During the [...] MD Clinical Neurophysiology/Epilepsy Attending Performing Organization Address City/State/Zipcode Phone Number GE RIS Urinalysis w/Microscopic + Reflex to Culture (09/03/2017 11:18 AM CDT) Color, UA Light Yellow [facility] Clarity, UA Clear [facility] Specific Alfred, UA 1.005 1.001 - 1.035 [facility] pH, UA 5.0 5.0 - 8.0 [facility] Protein, UA Negative Negative [facility] Glucose, UA 300 mg/dL (A) Negative [facility] Ketones, UA Trace (A) Negative [facility] Bilirubin, UA Negative Negative [facility] Blood, UA Negative Negative [facility] Nitrite, UA Negative Negative [facility] Leukocytes, UA Negative Negative [facility] Urobilinogen, UA 0.2 0.2 - 1.0 mg/dL [facility] RBC, UA <1 /HPF [facility] WBC, UA 0 /HPF [facility] Mucus Rare [facility] Specimen Source [facility] Specimen Urine - Urine, Clean Catch Performing Organization Address [facility] Phone Number [address] [address] [place] TSH/Free T4 If Indicated (09/03/2017 5:53 AM CDT) TSH 0.49 0.35 - 4.94 uIU/mL [facility] Specimen Blood Narrative Performed At Fasting [facility] Performing Organization Address [facility] Phone Number [address] [address] [place] HIV-1 Antigen with HIV-1/2 Antibody (09/03/2017 5:53 AM CDT) HIV-1 Antigen with HIV 1&2 NON-REACTIVE Nonreactive [facility] Specimen Blood Performing Organization Address [facility] Phone Number [address] [address] [place] C-Reactive Protein (09/03/2017 5:53 AM CDT) CRP 0.68 (H) 0.00 - 0.50 mg/dL [facility] Specimen Blood Performing Organization Address [facility] Phone Number [address] [address] [phone] [place] CBC with platelet count + automated diff (09/03/2017 5:53 AM CDT) WBC 8.8 3.5 - 10.5 K/L [facility] RBC 4.13 (L) 4.63 - 6.08 M/L [facility] Hemoglobin 11.8 (L) 13.7 - 17.5 GM/DL [facility] Hematocrit 34.7 (L) 40.1 - 51.0 % [facility] MCV 84.0 79.0 - 92.2 fL [facility] MCH 28.6 25.7 - 32.2 pg [facility] MCHC 34.0 32.3 - 36.5 GM/DL [facility] RDW 13.0 11.6 - 14.4 % [facility] Platelets 203 150 - 450 K/CU MM [facility] MPV 9.5 9.4 - 12.4 fL [facility] nRBC 0 0 - 0 /100 WBC [facility] % Neutros 77 % [facility] % Lymphs 15 % [facility] % Monos 7 % [facility] % Eos 0 % [facility] % Baso 1 % [facility] # Neutros 6.73 (H) 1.78 - 5.38 K/L [facility] # Lymphs 1.28 (L) 1.32 - 3.57 K/L [facility] # Monos 0.59 0.30 - 0.82 K/L [facility] # Eos 0.00 (L) 0.04 - 0.54 K/L [facility] # Baso 0.07 0.01 - 0.08 K/L [facility] Immature Granulocytes-Relative 1 0 - 1 % [facility] Specimen Blood Performing Organization Address City/State/Zipcode Phone Number [facility] [address] [place] [address] CENTER RPR (09/03/2017 5:53 AM CDT) RPR Nonreactive Nonreactive [facility] Specimen Blood Performing Organization Address City/State/Zipcode Phone Number [address] [address] [phone] [place] Sedimentation rate (09/03/2017 5:53 AM CDT) Sed Rate 86 (H) 0 - 40 mm/HR [facility] Specimen Blood Performing Organization Address City/[facility]/Zipcode Phone Number [address] [address] [place] Prothrombin time/INR (09/03/2017 5:53 AM CDT) Protime 16.5 (H) 11.7 - 14.7 seconds [facility] INR 1.3 <=5.9 [facility] Specimen Blood Narrative Performed At [facility] RECOMMENDED COUMADIN/WARFARIN INR THERAPY RANGES STANDARD DOSE: 2.0 - 3.0 Includes: PROPHYLAXIS for venous thrombosis, systemic embolization; TREATMENT for venous thrombosis and/or pulmonary embolus. HIGH RISK: Target INR is 2.5-3.5 for patients with mechanical heart valves. Performing Organization Address City/State/Zipcode Phone Number [address] [address] [phone] [place] Homocysteine - Fasting (09/03/2017 5:53 AM CDT) Homocysteine 14.8 5.1 - 15.4 umol/L [facility] Specimen Blood Narrative Performed At Fasting [facility] Performing Organization Address City/State/Zipcode Phone Number [address] [address] [phone] [place] Hemoglobin A1c - Fasting (09/03/2017 5:53 AM CDT) Hemoglobin A1C 10.1 (H) 4.3 - 6.1 % [facility] Specimen Blood Narrative Performed At Fasting [facility] Performing Organization Address City/[facility] Phone Number [address] [address] [place] Vitamin B12 (09/03/2017 5:53 AM CDT) Vitamin B12 717 213 - 816 pg/mL [facility] Specimen Blood Performing Organization Address City/[facility] Phone Number [address] [address] [phone] [place] Ammonia (09/03/2017 5:53 AM CDT) Ammonia 13 (L) 18 - 72 mol/L [facility] Specimen Blood Performing Organization Address [facility] Phone Number [address] [address] [place] Hepatic function panel (09/03/2017 5:53 AM CDT) Protein, Total 7.0 6.0 - 8.3 gm/dL [facility] Albumin 4.0 3.5 - 5.0 g/dL [facility] Total Bilirubin 0.5 0.2 - 1.2 mg/dL [facility] Bilirubin, Direct 0.2 0.1 - 0.5 mg/dL [facility] Alkaline Phosphatase 77 40 - 150 U/L [facility] AST 12 5 - 34 U/L [facility] ALT 12 6 - 55 U/L [facility] Specimen Blood Narrative Performed At Fasting [facility] Performing Organization Address [facility] Phone Number [address] [address] [place] Lipid panel (09/03/2017 5:53 AM CDT)Only the most recent of2 resultswithin the time period is included. Triglycerides 160 mg/dL [facility] Cholesterol 159 mg/dL [facility] HDL 37 mg/dL [facility] LDL Calculated 90 mg/dL [facility] Specimen Blood Narrative Performed At [facility] Triglyceride Reference Range: Low Risk <150 [id number] High Risk 200-499 Very High Risk>=500 Cholesterol Reference Range: Low Risk <200 [id number] High Risk>240 HDL Cholesterol Reference Range: Low Risk >=60 High Risk <40 LDL Cholesterol Reference Range: Optimal<100 Near [id number] [id number] [id number] Very High >=190 Performing Organization Address [facility] Phone Number [address] [address] [phone] C[place] Basic Metabolic Panel (09/03/2017 5:53 AM CDT) Sodium 137 136 - 145 meq/L [facility] Potassium 4.2 3.5 - 5.1 meq/L [facility] Chloride 103 98 - 107 meq/L [facility] CO2 23 22 - 29 meq/L [facility] BUN 34 (H) 7 - 21 mg/dL [facility] Creatinine 1.78 (H) 0.57 - 1.25 mg/dL [facility] Glucose 336 (H) 70 - 105 mg/dL [facility] Calcium 9.4 8.4 - 10.2 mg/dL [facility] EGFR 38Comment: ESTIMATED GFR IS mL/min/1.73 sq m [facility] NOT ACCURATE [facility] CLEARANCE IN PREDICTING GLOMERULAR FILTRATION RATE. ESTIMATED GFR IS NOT APPLICABLE FOR DIALYSIS PATIENTS. Specimen Blood Narrative Performed At Fasting [facility] Performing Organization Address City/State/Zipcode Phone Number [facility] [address] [place] [address] CENTER after 06/06/2017 Insurance Payer Benefit Plan / Group Subscriber ID Type Phone Address MEDICARE MEDICARE A B xxxxxxxxxx Medicare MCR SUPPLEMENT/INDIVIDUAL AARP/[facility] xxxxxxxxxxx [facility] Advance Directives For more information, please contact:[address] [phone] Code Status Date Activated Date Inactivated Comments Full Code 09/03/2017 3:06 AM 09/06/2017 6:11 PM This code status was determined by: Patient
--- OUTSIDE RECORDS SUMMARY | 2018-06-07 02:43 | XMS REPORT ---
:1945 [facility] Address [address] [place] [address] [address] [address] Care Team Providers Name Role Phone KAR AKBAR Unavailable Unavailable Problems This patient has no known problems. Allergies, Adverse Reactions, Alerts This patient has no known allergies or adverse reactions. Medications This patient has no known medications. Results Test Description Test Time Test Comments Text Results Atomic Results Result Comments MISCELLANEOUS LAB ORDER 2017-09-12 09:38:00 Test Item Value Reference Range Comments SCAN RESULT (test cdsa=[id number]) CSF CULTURE + GRAM [id number] 17:06:00 Test Item Value Reference Range Comments CULTURE (BEAKER) (test ifun=8428) No growth GRAM STAIN RESULT (BEAKER) (test No WBCs xdgc=0761) GRAM STAIN RESULT (BEAKER) (test No organisms seen ajrv=11440) HSV 1/2 PCR, [id number] 14:20:00 Test Item Value Reference Range Comments HSV BY PCR (BEAKER) (test uyce=408) NEGATIVE NEGATIVE Herpes Simplex Virus (HSV) not [...] and its performance characteristics determined by the [facility] Pathology Department, Section of Molecular Pathology. It has not been cleared or approved by the U.S. Food and Drug Administration (FDA), as FDA approval is not required for clinical use of the test. Validation was done as required by the Clinical Laboratory Amendments of 1988.MARIBELL TITER AND [id number] 10:36:00 Test Item Value Reference Range Comments MARIBELL TITER (BEAKER) (test npyb=0748) :40 MARIBELL PATTERN (BEAKER) (test utov=9007) Speckled POCT-GLUCOSE [id number] 08:31:00 Test Item Value Reference Range Comments POC-GLUCOSE METER (BEAKER) 321 mg/dL 70-110 Notified MAREC REBOLLAR/TESTED AT [facility] (test jkkz=4472) [address] [place], [place] [id number] POCT-GLUCOSE [id number] 05:11:00 Test Item Value Reference Range Comments POC-GLUCOSE METER (BEAKER) 289 mg/dL 70-110 TESTED AT [address] (test mkvg=8894) [place] [id number] CRYPTOCOCCAL ANTIGEN, [id number] 00:44:00 Test Item Value Reference Range Comments CRYPTOCOCCAL ANTIGEN, CSF (BEAKER) (test Negative Negative, Interference lcmz=202) VDRL, [id number] 00:30:00 Test Item Value Reference Range Comments SYPHILIS VDRL QUANTITATION CSF (BEAKER) (test Nonreactive Nonreactive mfoc=175) POCT-GLUCOSE [id number] 19:15:00 Test Item Value Reference Range Comments POC-GLUCOSE METER (BEAKER) 383 mg/dL 70-110 TESTED AT [address] (test grum=9424) [place] [id number] POCT-GLUCOSE [id number] 18:43:00 Test Item Value Reference Range Comments POC-GLUCOSE METER (BEAKER) 429 mg/dL 70-110 Notified MARCE REBOLLAR/TESTED AT [facility] (test czil=4734) [address] [place], [place] [id number] CSF CELL COUNT [id number] 17:48:00 Test Item Value Reference Range Comments APPEARANCE CSF (BEAKER) (test oncd=998) Clear Clear COLOR CSF (BEAKER) (test qxji=668) Colorless Colorless RBC CSF (BEAKER) (test ycua=261) 7 /cu mm 0-5 WBC CSF (BEAKER) (test ueyq=0811) 0 /cu mm <=5 RBCS FRESH (BEAKER) (test oldx=7622) 100% Fresh NUMBER OF CELLS DIFF'D (BEAKER) (test evwm=0671) 0 TUBE NUMBER CSF (BEAKER) (test lzsr=7108) 1 POCT-GLUCOSE [id number] 17:38:00 Test Item Value Reference Range Comments POC-GLUCOSE METER (BEAKER) 438 mg/dL 70-110 Notified MARCE REBOLLAR/TESTED AT [facility] (test yfen=4485) [address] [place] [address] PROTEIN, [id number] 15:45:00 Test Item Value Reference Range Comments PROTEIN CSF (BEAKER) (test ivji=210) 73 mg/dL 15-45 GLUCOSE, [id number] 15:44:00 Test Item Value Reference Range Comments GLUCOSE CSF (BEAKER) (test plxn=665) 165 mg/dL 40-70 POCT-GLUCOSE [id number] 12:16:00 Test Item Value Reference Range Comments POC-GLUCOSE METER (BEAKER) 375 mg/dL 70-110 Notified MARCE REBOLLAR/TESTED AT [facility] (test zugb=6161) [address] [place] [address] POCT-GLUCOSE [id number] 07:51:00 Test Item Value Reference Range Comments POC-GLUCOSE METER (BEAKER) 279 mg/dL 70-110 TESTED AT [address] (test tqse=3041) [place] [id number] ANTI-NUCLEAR ANTIBODY (MARIBELL)2017-09-05 05:34:00 Test Item Value Reference Range Comments ANTI-NUCLEAR ANTIBODY (MARIBELL) (BEAKER) (test Positive Negative qchd=429) POCT-GLUCOSE [id number] 21:44:00 Test Item Value Reference Range Comments POC-GLUCOSE METER (BEAKER) 244 mg/dL 70-110 TESTED AT [address] (test uzbd=7257) [facility] [address] MR, MRA, BRAIN, WITHOUT [id number] 21:12:00Reason for exam:-> Ischemic Stroke EvaluationFINAL REPORT MRA head and neck Comparison: None Reason for exam: Encephalopathy Discussion: 2 D and 3 -D fyby-pw-vomoct MRA of the head and neck was [...] 2017 09:12 PMMR, MRA, NECK, WITHOUT IV [id number] 21:12:00Reason for exam:->Ischemic Stroke EvaluationFINAL REPORT MRA head and neck Comparison: None Reason for exam: Encephalopathy Discussion: 2 D and 3-D sbyp-cn-dboerf MRA of the head and neck was [...] SOTO M.D. on 09:12 PMMR, BRAIN, WITHOUT [id number] 21:09:00FINAL REPORT MRI brain Comparison: None Reason [...] SHERRIE SOTO M.D. on 09/04 09:09 PMPOCT-GLUCOSE [id number] 18:53:00 Test Item Value Reference Range Comments POC-GLUCOSE METER (BEAKER) 243 mg/dL 70-110 TESTED AT [address] (test muwv=8671) [facility] [address] POCT-GLUCOSE [id number] 14:28:00 Test Item Value Reference Range Comments POC-GLUCOSE METER (BEAKER) 363 mg/dL 70-110 TESTED AT [address] (test viaa=6983) [facility] [address] POCT-GLUCOSE [id number] 14:22:00 Test Item Value Reference Range Comments POC-GLUCOSE METER (BEAKER) 341 mg/dL 70-110 TESTED AT [address] (test tnmy=9090) [facility] [address] POCT-GLUCOSE [id number] 14:18:00 Test Item Value Reference Range Comments POC-GLUCOSE METER (BEAKER) 441 mg/dL 70-110 TESTED AT [address] (test xoje=3993) [place] [id number] POCT-GLUCOSE [id number] 12:12:00 Test Item Value Reference Range Comments POC-GLUCOSE METER (BEAKER) 326 mg/dL 70-110 TESTED AT [address] (test ubhp=6829) [place] [id number] POCT-GLUCOSE [id number] 08:50:00 Test Item Value Reference Range Comments POC-GLUCOSE METER (BEAKER) 153 mg/dL 70-110 TESTED AT [address] (test xzzt=1218) [facility] [address] [id number] 07:11:00 Test Item Value Reference Range Comments RPR SCREEN (BEAKER) (test injt=616) Nonreactive Nonreactive POCT-GLUCOSE [id number] 21:31:00 Test Item Value Reference Range Comments POC-GLUCOSE METER (BEAKER) 306 mg/dL 70-110 Notified MARCE REBOLLAR/TESTED AT [facility] (test qbtj=4144) [address] [place] [address] POCT-GLUCOSE [id number] 17:42:00 Test Item Value Reference Range Comments POC-GLUCOSE METER (BEAKER) 395 mg/dL 70-110 TESTED AT [address] (test ronm=0280) [place] [id number] EEG AWAKE AND [id number] 16:15:00Reason for exam:->SeizuresDate(s) of EE09/03/17DATE OF REPORT: 09/03/17MRN: [id number]: [id number] Number: [id number] Location: Inpatient RoomStart time: 14:30Stop time: 14:51ICD-10: R56.9CPT Code: 52628 HISTORY: Mr. Powers is a RH 71 y.o. 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 Elisa Jordan MDNeurophysiology Fellow, [id number] note: I personally reviewed this EEG record in its entirety and I agree with the details of this report. Martha Pace MD Clinical Neurophysiology/Epilepsy Attending URINALYSIS W/ REFLEX URINE [id number] 11:56:00 Test Item Value Reference Range Comments COLOR (BEAKER) (test ohej=929) Light Yellow CLARITY (BEAKER) (test sizg=866) Clear SPECIFIC GRAVITY UA (BEAKER) (test szsq=448) 1.005 1.001-1.035 PH UA (BEAKER) (test zgqn=832) 5.0 5.0-8.0 PROTEIN UA (BEAKER) (test egsb=751) Negative Negative GLUCOSE UA (BEAKER) (test yirb=356) 300 mg/dL Negative KETONES UA (BEAKER) (test snjs=025) Trace Negative BILIRUBIN UA (BEAKER) (test stnu=418) Negative Negative BLOOD UA (BEAKER) (test bxkt=629) Negative Negative NITRITE UA (BEAKER) (test jcgv=231) Negative Negative LEUKOCYTE ESTERASE UA (BEAKER) (test zfhe=795) Negative Negative UROBILINOGEN UA (BEAKER) (test qetm=517) 0.2 mg/dL 0.2-1.0 RBC UA (BEAKER) (test uftq=834) < /HPF WBC UA (BEAKER) (test bfqz=502) 0 /HPF MUCUS (BEAKER) (test rttu=4912) Rare SOURCE(BEAKER) (test vsfe=3348) SEDIMENTATION [id number] 11:22:00 Test Item Value Reference Range Comments SEDIMENTATION RATE, ERYTHROCYTE (BEAKER) (test 86 mm/HR 0-40 rmwi=355) HEMOGLOBIN [id number] 10:37:00 Test Item Value Reference Range Comments HEMOGLOBIN A1C (BEAKER) (test wkcj=211) 10.1 % 4.3-6.1 FastingVITAMIN [id number] 09:09:00 Test Item Value Reference Range Comments VITAMIN B12 (BEAKER) (test fmte=722) 717 pg/mL 213-816 [id number] 08:49:00 Test Item Value Reference Range Comments HOMOCYSTEINE (BEAKER) (test vsme=645) 14.8 umol/L 5.1-15.4 FastingPOCT-GLUCOSE [id number] 08:39:00 Test Item Value Reference Range Comments POC-GLUCOSE METER (BEAKER) 329 mg/dL 70-110 Notified MARCE REBOLLAR/TESTED AT [facility] (test psqy=8476) [address] [facility] [place] [address] TSH/FREE T4 IF [id number] 07:33:00 Test Item Value Reference Range Comments THYROID STIMULATING HORMONE (BEAKER) (test 0.49 uIU/mL 0.35-4.94 epea=918) FastingHIV-1 ANTIGEN WITH HIV-1/2 [id number] 07:28:00 Test Item Value Reference Range Comments HIV-1 ANTIGEN WITH HIV 1\T\2 ANTIBODY (2) Nonreactive Nonreactive (BEAKER) (test zqwc=6906) C-REACTIVE [id number] 07:08:00 Test Item Value Reference Range Comments C-REACTIVE PROTEIN (BEAKER) (test aafe=769) 0.68 mg/dL 0.00-0.50 LIPID [id number] 07:08:00 Test Item Value Reference Range Comments TRIGLYCERIDES (BEAKER) (test tzbi=590) 155 mg/dL CHOLESTEROL (BEAKER) (test wiju=151) 155 mg/dL HDL CHOLESTEROL (BEAKER) (test fvto=120) 35 mg/dL LDL CHOLESTEROL CALCULATED (BEAKER) (test 89 mg/dL psai=703) Triglyceride Reference Range: Low Risk <150 Borderline 150- 199 High Risk 200-499 Very High Risk >=500Cholesterol Reference Range: Low Risk <200 Borderline 200-239 High Risk > 240HDL Cholesterol Reference Range: Low Risk >=60 High Risk <40LDL Cholesterol Reference Range: Optimal <100 Near Optimal 100-129 Borderline 130-159 High 160-189 Very High >=190 FastingBASIC METABOLIC [id number] 07:08:00 Test Item Value Reference Range Comments SODIUM (BEAKER) (test 137 meq/L 136-145 cbba=267) POTASSIUM (BEAKER) (test 4.2 meq/L 3.5-5.1 omoc=434) CHLORIDE (BEAKER) (test 103 meq/L 98-107 xgbe=419) CO2 (BEAKER) (test 23 meq/L 22-29 fbsc=550) BLOOD UREA NITROGEN 34 mg/dL 7-21 (BEAKER) (test vltd=133) CREATININE (BEAKER) (test 1.78 mg/dL 0.57-1.25 bbnh=472) GLUCOSE RANDOM (BEAKER) 336 mg/dL 70-105 (test qfsh=517) CALCIUM (BEAKER) (test 9.4 mg/dL 8.4-10.2 mhzw=110) EGFR (BEAKER) (test 38 mL/min/1.73 sq m ESTIMATED GFR IS NOT jjef=7499) ACCURATE CREATININE CLEARANCE IN PREDICTING GLOMERULAR FILTRATION RATE. ESTIMATED GFR IS NOT APPLICABLE FOR DIALYSIS PATIENTS. FastingHEPATIC FUNCTION [id number] 07:08:00 Test Item Value Reference Range Comments TOTAL PROTEIN (BEAKER) (test fvky=008) 7.0 gm/dL 6.0-8.3 ALBUMIN (BEAKER) (test bodv=3851) 4.0 g/dL 3.5-5.0 BILIRUBIN TOTAL (BEAKER) (test cfir=768) 0.5 mg/dL 0.2-1.2 BILIRUBIN DIRECT (BEAKER) (test fztt=803) 0.2 mg/dL 0.1-0.5 ALKALINE PHOSPHATASE (BEAKER) (test atwd=322) 77 U/L 40-150 AST (SGOT) (BEAKER) (test fdzv=978) 12 U/L 5-34 ALT (SGPT) (BEAKER) (test rzng=230) 12 U/L 6-55 FastingLIPID [id number] 07:06:00 Test Item Value Reference Range Comments TRIGLYCERIDES (BEAKER) (test pjvk=377) 160 mg/dL CHOLESTEROL (BEAKER) (test lyid=664) 159 mg/dL HDL CHOLESTEROL (BEAKER) (test uevf=728) 37 mg/dL LDL CHOLESTEROL CALCULATED (BEAKER) (test 90 mg/dL hkwy=750) Triglyceride Reference Range: Low Risk <150 Borderline 150- 199 High Risk 200-499 Very High Risk >=500Cholesterol Reference Range: Low Risk <200 Borderline 200-239 High Risk > 240HDL Cholesterol Reference Range: Low Risk >=60 High Risk <40LDL Cholesterol Reference Range: Optimal <100 Near Optimal 100-129 Borderline 130-159 High 160-189 Very High >=[id number] 06:55:00 Test Item Value Reference Range Comments AMMONIA (BEAKER) (test dmqq=276) 13 mol/L 18-72 PROTHROMBIN [id number] 06:33:00 Test Item Value Reference Range Comments PROTIME (BEAKER) (test vyox=807) 16.5 seconds 11.7-14.7 INR (BEAKER) (test ujgw=573) 1.3 <=5.9 RECOMMENDED COUMADIN/WARFARIN INR THERAPY RANGESSTANDARD DOSE: 2.0 - 3.0 Includes: PROPHYLAXIS forvenous thrombosis, systemic embolization; TREATMENT for venous thrombosis and/or pulmonary embolus.HIGH RISK: Target INR is 2.5-3.5 for patients with mechanical heart valves.CBC W/PLT COUNT & AUTO [id number] 06:21:00 Test Item Value Reference Range Comments WHITE BLOOD CELL COUNT (BEAKER) (test mdsp=469) 8.8 K/ L 3.5-10.5 RED BLOOD CELL COUNT (BEAKER) (test aftx=656) 4.13 M/ L 4.63-6.08 HEMOGLOBIN (BEAKER) (test wfso=606) 11.8 GM/DL 13.7-17.5 HEMATOCRIT (BEAKER) (test rwdk=966) 34.7 % 40.1-51.0 MEAN CORPUSCULAR VOLUME (BEAKER) (test ofdr=073) 84.0 fL 79.0-92.2 MEAN CORPUSCULAR HEMOGLOBIN (BEAKER) (test 28.6 pg 25.7-32.2 uhek=814) MEAN CORPUSCULAR HEMOGLOBIN CONC (BEAKER) (test 34.0 GM/DL 32.3-36.5 vrxw=902) RED CELL DISTRIBUTION WIDTH (BEAKER) (test 13.0 % 11.6-14.4 obqh=045) PLATELET COUNT (BEAKER) (test axuv=254) 203 K/CU MM 150-450 MEAN PLATELET VOLUME (BEAKER) (test mxvl=612) 9.5 fL 9.4-12.4 NUCLEATED RED BLOOD CELLS (BEAKER) (test 0 /100 WBC 0-0 gasu=166) NEUTROPHILS RELATIVE PERCENT (BEAKER) (test 77 % mzcx=604) LYMPHOCYTES RELATIVE PERCENT (BEAKER) (test 15 % bppp=495) MONOCYTES RELATIVE PERCENT (BEAKER) (test 7 % ketf=665) EOSINOPHILS RELATIVE PERCENT (BEAKER) (test 0 % ritz=717) BASOPHILS RELATIVE PERCENT (BEAKER) (test 1 % tgnr=812) NEUTROPHILS ABSOLUTE COUNT (BEAKER) (test 6.73 K/ L 1.78-5.38 uhoq=727) LYMPHOCYTES ABSOLUTE COUNT (BEAKER) (test 1.28 K/ L 1.32-3.57 heii=834) MONOCYTES ABSOLUTE COUNT (BEAKER) (test 0.59 K/ L 0.30-0.82 qcey=046) EOSINOPHILS ABSOLUTE COUNT (BEAKER) (test 0.00 K/ L 0.04-0.54 auqb=851) BASOPHILS ABSOLUTE COUNT (BEAKER) (test 0.07 K/ L 0.01-0.08 ulhg=453) IMMATURE GRANULOCYTES-RELATIVE PERCENT (BEAKER) 1 % 0-1 (test nqii=0676)
[2018-06-07] MEDS ORDERED: INSULIN -REGULAR HUMAN 50 UNIT/0.5 ML ML ONE (03:22)
[2018-06-07] MEDS ORDERED: NA CHLORIDE 0.9% 1,000 ML ONE ×2 (03:22→06:08)
[2018-06-07 03:55] LABS: Potassium 4.6 mmol/L (3.5-5.1)
--- NOTE | 2018-06-07 05:00 | EDPHYS ---
Physician Documentation [facility] Name: Agustin Petty Sr Age: 72 yrs Sex: Male : 1945 Arrival Date: 06/07/2018 Time: 02:41 Bed 20 Private MD: ED Physician Yonny Cherry HPI: 06/07 04:58 This 72 yrs old Male presents to ER via Wheelchair with complaints of High gs Blood Sugar. 04:58 The patient or guardian reports hyperglycemia. Onset: The symptoms/episode gs began/occurred yesterday. Associated signs and symptoms: Pertinent negatives: vomiting. Current symptoms: In the emergency department the patient's symptoms are unchanged from the initial presentation. The patient has experienced similar episodes in the past, a few times. SAYS RAN OUT OF INSULIN. Historical: - Allergies: 03:02 No Known Allergies; ak1 - Home Meds: 03:02 alendronate 70 mg/75 mL Oral soln 75 mL once wkly [Active]; Januvia 50 mg Oral tab 1 ak1 tabs once daily [Active]; metformin 1,000 mg Oral TG24 1 tab 2 times per day [Active]; rosuvastatin 20 mg Oral tab 1 tab once daily [Active]; multivitamin Oral [Active]; lisinopril 20 mg Oral tab 1 tab once daily [Active]; aspirin 81 mg Oral chew 1 tab once daily [Active]; Vitamin C 1,000 mg Oral tab [Active]; Iron CR 65mg Oral [Active]; Tresiba FlexTouch U-100 30units subcutaneous inpn [Active]; - PMHx: 03:02 Diabetes - NIDDM; Hypertension; Hyperlipidemia; ak1 - Immunization history:: Adult Immunizations unknown. - Social history:: Smoking status: Patient/guardian denies using tobacco. - Ebola Screening: : No symptoms or risks identified at this time. ROS: 04:58 All other systems are negative. gs Exam: 04:58 Head/Face: Normocephalic, atraumatic. Eyes: Pupils equal round and reactive to light, gs extra-ocular motions intact. Lids and lashes normal. Conjunctiva and sclera are non-icteric and not injected. Cornea within normal limits. Periorbital areas with no swelling, redness, or edema. ENT: Nares patent. No nasal discharge, no septal abnormalities noted. Tympanic membranes are normal and external auditory canals are clear. Oropharynx with no redness, swelling, or masses, exudates, or evidence of obstruction, uvula midline. Mucous membranes moist. Neck: Trachea midline, no thyromegaly or masses palpated, and no cervical lymphadenopathy. Supple, full range of motion without nuchal rigidity, or vertebral point tenderness. No Meningismus. Chest/axilla: Normal chest wall appearance and motion. Nontender with no deformity. No lesions are appreciated. Cardiovascular: Regular rate and rhythm with a normal S1 and S2. No gallops, murmurs, or rubs. Normal PMI, no JVD. No pulse deficits. Respiratory: Lungs have equal breath sounds bilaterally, clear to auscultation and percussion. No rales, rhonchi or wheezes noted. No increased work of breathing, no retractions or nasal flaring. Abdomen/GI: Soft, non-tender, with normal bowel sounds. No distension or tympany. No guarding or rebound. No evidence of tenderness throughout. Back: No spinal tenderness. No costovertebral tenderness. Full range of motion. Skin: Warm, dry with normal turgor. Normal color with no rashes, no lesions, and no evidence of cellulitis. MS/ Extremity: Pulses equal, no cyanosis. Neurovascular intact. Full, normal range of motion. Neuro: Awake and alert, GCS 15, oriented to person, place, time, and situation. Cranial nerves II-XII grossly intact. Motor strength 5/5 in all extremities. Sensory grossly intact. Cerebellar exam normal. Normal gait. 04:58 Constitutional: The patient appears alert, awake. Vital Signs: 02:56 BP 166 / 61; Pulse 70; Resp 18; Temp 99.6(O); Pulse Ox 98% on R/A; Weight 77.11 kg (R); ak1 Height 5 ft. 6 in. (167.64 cm) (R); Pain 0/10; 04:33 BP 152 / 76; Pulse 64; Resp 18; Pulse Ox 98% on R/A; ak1 05:09 BP 137 / 58; Pulse 64; Resp 18; Temp 98.9(TE); Pulse Ox 98% on R/A; ak1 02:56 Body Mass Index 27.44 (77.11 kg, 167.64 cm) ak1 MDM: 02:59 Patient medically screened. gs 04:58 Differential diagnosis: DKA, hyperglycemia. Data reviewed: vital signs, nurses notes. Counseling: I had a detailed discussion with the patient and/or guardian regarding: the historical points, exam findings, and any diagnostic results supporting the discharge/admit diagnosis, the need for further work-up and treatment in the hospital. Response to treatment: the patient's symptoms have mildly improved after treatment, and as a result, I will admit patient. 06/07 03:01 Order name: Basic Metabolic Panel; Complete Time: 04:11 gs 06/07 03:01 Order name: CBC with Diff gs 06/07 03:01 Order name: Urine Microscopic Only gs 06/07 05:09 Order name: CBC with Automated Diff EDMS 06/07 05:09 Order name: CBC with Automated Diff EDMS 06/07 05:09 Order name: Comprehensive Metabolic Panel EDMS 06/07 05:09 Order name: Comprehensive Metabolic Panel EDMS 06/07 05:09 Order name: Hemoglobin A1c EDMS 06/07 05:10 Order name: Basic Metabolic Panel EDMS 06/07 05:10 Order name: CBC with Automated Diff EDMS 06/07 05:10 Order name: Lipase EDMS 06/07 05:10 Order name: Magnesium EDMS 06/07 05:10 Order name: Phosphorus EDMS 06/07 05:09 Order name: CONS Pharmacy Consult EDMS 06/07 05:09 Order name: Consistent Carb (ADA) [address] EDMS 06/07 05:10 Order name: Acetone Level EDMS 06/07 05:23 Order name: Glucose ak 06/07 05:59 Order name: Glucose Level EDMS Administered Medications: 03:20 Drug: NS 0.9% 1000 ml Route: IV; Rate: 1 bolus; Site: right hand; ak1 04:32 Follow up: IV Status: Completed infusion ak1 03:21 Drug: Insulin Regular Human 10 units {Co-Signature: jb4 (Benoit Dawson RN).} Route: ak1 Sub-Q; Site: left lower abdomen; 04:32 Follow up: Response: No adverse reaction ak1 Point of Care Testing: Blood Glucose: 02:56 Blood Glucose: High (>450 mg/dL); ak1 05:23 Blood Glucose: High (>450 mg/dL); ak1 08:17 Blood Glucose: 398 mg/dL; em 05:23 glucose lab ordered per protocol ak1 Ranges: Critical Glucose Levels:Adult <50 mg/dl or >400 mg/dl <40 mg/dl or >180 mg/dl Disposition: 06/07/18 05:00 Hospitalization ordered by Aditya Sanchez for Inpatient Admission. Preliminary diagnosis are Hyperosmolality and hypernatremia, Hyperglycemia, unspecified. - Bed requested for Telemetry/MedSurg (Inpatient). - Status is Inpatient Admission. em - Condition is Stable. - Problem is new. - Symptoms have improved. UTI on Admission? No Critical care time excluding procedures: 04:58 Critical care time: Bedside Care: 10 minutes, Consultation: 10 minutes, Family gs Intervention: 10 minutes. Total time: 30 minutes Signatures: Dispatcher [employer] EDNE Gloria Oliver RN RN Mejia Burns, IT SECURITY MANAGER IT SECURITY MANAGER Heidy Espinoza RN RN ed1 Reina Davila RN RN ak1 Yonny Cherry MD MD Benoit Dawson RN jb4 Corrections: (The following items were deleted from the chart) 05:01 05:00 Hospitalization Ordered by Aditya Sanchez MD for Inpatient Admission. Preliminary gs diagnosis is Hyperosmolality and hypernatremia. Bed requested for Telemetry/MedSurg (Inpatient). Status is Inpatient Admission. Condition is Stable. Problem is new. Symptoms have improved. UTI on Admission? No. gs 05:05 05:01 06/07/2018 05:00 Hospitalization Ordered by Aditya Sanchez MD for Inpatient ed1 Admission. Preliminary diagnosis is Hyperosmolality and hypernatremia; Hyperglycemia, unspecified. Bed requested for Telemetry/MedSurg (Inpatient). Status is Inpatient Admission. Condition is Stable. Problem is new. Symptoms have improved. UTI on Admission? No. gs 05:10 05:09 Acetone Level ordered. [facility] EDNE 05:32 05:05 06/07/2018 05:00 Hospitalization Ordered by Aditya Sanchez MD for Inpatient mw Admission. Preliminary diagnosis is Hyperosmolality and hypernatremia; Hyperglycemia, unspecified. Bed requested for [facility] ER HOLD. Status is Inpatient Admission. Condition is Stable. Problem is new. Symptoms have improved. UTI on Admission? No. ed1 08:26 05:32 06/07/2018 05:00 Hospitalization Ordered by Aditya Sanchez MD for Inpatient em Admission. Preliminary diagnosis is Hyperosmolality and hypernatremia; Hyperglycemia, unspecified. Bed requested for Telemetry/MedSurg (Inpatient). Status is Inpatient Admission. Condition is Stable. Problem is new. Symptoms have improved. UTI on Admission? No. mw
--- NOTE | 2018-06-07 05:00 | ER ---
Nurse's Notes [facility] Name: Agustin Petty Sr Age: 72 yrs Sex: Male : 1945 Arrival Date: 06/07/2018 Time: 02:41 Bed 20 Private MD: Diagnosis: Hyperosmolality and hypernatremia;Hyperglycemia, unspecified Presentation: 06/07 02:57 Presenting complaint: Child states: pt has not been taking his insulin or medications ak1 at home. pt stated he has not had his insulin in 2 days due to "not having any" pt stated Dr. Mao recently changed his type of insulin. pt son stated the home FSBG read HIGH at 0230. Transition of care: patient was not received from another setting of care. Onset of symptoms was June 07, 2018. Risk Assessment: Do you want to hurt yourself or someone else? Patient reports no desire to harm self or others. Initial Sepsis Screen: Does the patient meet any 2 criteria? No. Patient's initial sepsis screen is negative. Does the patient have a suspected source of infection? No. Patient's initial sepsis screen is negative. Care prior to arrival: None. 02:57 Method Of Arrival: Wheelchair ak1 02:57 Acuity: ALVIN 3 ak1 Triage Assessment: 03:02 General: Appears in no apparent distress. Behavior is calm, cooperative. Pain: Denies ak1 pain. EENT: No signs and/or symptoms were reported regarding the EENT system. Neuro: Level of Consciousness is awake, alert, obeys commands, confused, Oriented to person, place, time, situation, Moves all extremities. Gait is pt uses cane to walk. Cardiovascular: No deficits noted. Respiratory: No deficits noted. GI: No signs and/or symptoms were reported involving the gastrointestinal system. : No signs and/or symptoms were reported regarding the genitourinary system. Derm: No signs and/or symptoms reported regarding the dermatologic system. Musculoskeletal: No signs and/or symptoms reported regarding the musculoskeletal system. Historical: - Allergies: 03:02 No Known Allergies; ak1 - Home Meds: 03:02 alendronate 70 mg/75 mL Oral soln 75 mL once wkly [Active]; Januvia 50 mg Oral tab 1 ak1 tabs once daily [Active]; metformin 1,000 mg Oral TG24 1 tab 2 times per day [Active]; rosuvastatin 20 mg Oral tab 1 tab once daily [Active]; multivitamin Oral [Active]; lisinopril 20 mg Oral tab 1 tab once daily [Active]; aspirin 81 mg Oral chew 1 tab once daily [Active]; Vitamin C 1,000 mg Oral tab [Active]; Iron CR 65mg Oral [Active]; Tresiba FlexTouch U-100 30units subcutaneous inpn [Active]; - PMHx: 03:02 Diabetes - NIDDM; Hypertension; Hyperlipidemia; ak1 - Immunization history:: Adult Immunizations unknown. - Social history:: Smoking status: Patient/guardian denies using tobacco. - Ebola Screening: : No symptoms or risks identified at this time. Screenin:04 Abuse screen: Denies threats or abuse. Denies injuries from another. Nutritional ak1 screening: No deficits noted. Tuberculosis screening: No symptoms or risk factors identified. Fall Risk Ambulatory Aid- Crutches/Cane/Walker (15 pts). Assessment: 03:05 Reassessment: Patient appears in no apparent distress at this time. No changes from ak1 previously documented assessment. see triage assessment. 03:52 Reassessment: pt c/o right leg pain stating the pain is "where the needle is" pt states ak1 he has pain in his right leg "from my IV" the pt's IV is located in his right hand. 04:31 Reassessment: pt son stated pt urinated in his "diaper twice" pt cleaned of ak1 incontinence with a new brief placed on pt. . 05:08 Reassessment: Patient appears in no apparent distress at this time. Patient is alert, ak1 oriented x 3, equal unlabored respirations, skin warm/dry/pink. Patient denies pain at this time. Patient states feeling better. 07:30 Reassessment: Patient appears in no apparent distress at this time. Patient and/or em family updated on plan of care and expected duration. Pain level reassessed. Patient is alert, oriented x 3, equal unlabored respirations, skin warm/dry/pink. Patient denies pain at this time. 08:20 Reassessment: glucose rechecked, FSBS 398, notified MARCE Butcher on 2nd floor. em Vital Signs: 02:56 BP 166 / 61; Pulse 70; Resp 18; Temp 99.6(O); Pulse Ox 98% on R/A; Weight 77.11 kg (R); ak1 Height 5 ft. 6 in. (167.64 cm) (R); Pain 0/10; 04:33 BP 152 / 76; Pulse 64; Resp 18; Pulse Ox 98% on R/A; ak1 05:09 BP 137 / 58; Pulse 64; Resp 18; Temp 98.9(TE); Pulse Ox 98% on R/A; ak1 02:56 Body Mass Index 27.44 (77.11 kg, 167.64 cm) ak1 ED Course: 02:41 Patient arrived in ED. ds1 02:46 Reina Davila, MARCE is Primary Nurse. ak1 02:48 Yonny Cherry MD is Attending Physician. gs 02:59 Triage completed. ak1 03:02 Arm band placed on Patient placed in an exam room, on a stretcher, on pulse oximetry, ak1 Patient notified of wait time. 03:04 Patient has correct armband on for positive identification. Bed in low position. Call ak1 light in reach. Side rails up X2. Adult w/ patient. Pulse ox on. NIBP on. 03:22 Initial lab(s) drawn, by ED staff, sent to lab. Inserted saline lock: 22 gauge in right ak1 hand, using aseptic technique. ,using aseptic technique. placed by Patrick Renteria Blood collected. 04:01 Notified ED physician of a critical lab result(s). Glucose 808 Notified primary nurse ed1 of Glucose 808. 04:59 Aditya Sanchez MD is Hospitalizing Provider. gs 05:08 No provider procedures requiring assistance completed. Patient admitted, IV remains in ak1 place. 05:34 Repeat lab(s) drawn. by me, sent to lab. ak1 05:56 Glucose Sent. ak1 Administered Medications: 03:20 Drug: NS 0.9% 1000 ml Route: IV; Rate: 1 bolus; Site: right hand; ak1 04:32 Follow up: IV Status: Completed infusion ak1 03:21 Drug: Insulin Regular Human 10 units {Co-Signature: [email or web address] (Benoit Dawson RN).} Route: ak1 Sub-Q; Site: left lower abdomen; 04:32 Follow up: Response: No adverse reaction ak1 Point of Care Testing: Blood Glucose: 02:56 Blood Glucose: High (>450 mg/dL); ak1 05:23 Blood Glucose: High (>450 mg/dL); ak1 08:17 Blood Glucose: 398 mg/dL; em 05:23 glucose lab ordered per protocol ak1 Ranges: Outcome: 05:00 Decision to Hospitalize by Provider. 05:09 Instructed on the need for admit. ak1 05:34 Condition: stable ak1 07:40 Admitted to Med/surg accompanied by tech, via stretcher, with chart, Report called to luiz Butcher RN 08:26 Patient left the ED. em Signatures: Mejia Burns LVN LVN Maritza Fall ds1 Heidy Zapata RN RN ed1 Reina Davila RN RN ak1 Yonny Cherry MD MD Benoit Dawson RN [email or web address]
[2018-06-07] MEDS ORDERED: MORPHINE 4 MG/ML SYR IV PRN (05:06)
[2018-06-07] MEDS ORDERED: ACETAMINOPHEN 500 MG TAB PO PRN (05:06)
[2018-06-07] MEDS ORDERED: ONDANSETRON 4 MG/2 ML VIAL IV PRN (05:06)
[2018-06-07] MEDS ORDERED: GLUCAGON 1 MG/VIAL IM PRN (05:09)
[2018-06-07] MEDS ORDERED: D50W 25 GM/50 ML SYRINGE IV PRN (05:09)
[2018-06-07] MEDS: NA CHLORIDE 0.9% 1,000 ML IV SCH ×2 (05:55→17:45)
[2018-06-07] MEDS: INSULIN GLARGINE 100 UNITS/ML SQ SCH ×2 (06:29→08:00)
[2018-06-07] MEDS ORDERED: INSULIN GLARGINE 100 UNITS/ML SQ SCH (08:00)
[2018-06-07] MEDS ORDERED: PNEUMOCOCCAL VACCINE 0.5 ML IMVAC ONE (08:00)
[2018-06-07] MEDS: INSULIN -REGULAR HUMAN 50 UNIT/0.5 ML ML SQ SCH ×4 (09:27→22:02)
[2018-06-07 09:44] VITALS: BMI 27.4
--- NOTE | 2018-06-07 10:02 | P.HP ---
Certification for Inpatient Patient admitted to: Observation With expected LOS: <2 Midnights Patient will require the following post-hospital care: None Practitioner: I am a practitioner with admitting privileges, knowledge of patient current condition, hospital course, and medical plan of care. Services: Services provided to patient in accordance with Admission requirements found in Title 42 Section 412.3 of the Code of Federal Regulations Patient History Date of Service: 06/07/18 Reason for admission: hyperglycemia History of Present Illness: Patient is a 72-year-old gentleman who has a history of diabetes. He also has Alzheimer's dementia which has been progressive. He has been forgetting to take his medicine. According to the son his last week of pills in his medicine boxes were still unopened. His father had been forgetting to take his medications. Patient lives with his ; however, she is also not in good health. The son states that him and his siblings have started looking after the parents much more often. However, he was not aware that he had been missing his medications. When he went to his house at 1:00 a.m. because his mother called him regarding the patient he realized that he had not taken any medication. He checked his blood sugars it and did not register. He brought him into the emergency room and his blood sugars were greater than 800. he did not have any ketosis, so he was admitted to the hospital with hyperosmolar nonketotic syndrome. Patient has been more forgetful lately. It appears that his outline was dementia has been progressive. He will need close follow-up as an outpatient. Allergies No Known Allergies Allergy (Verified 03/28/16 09:19) Home Medications: Finasteride 5 mg PO DAILY 06/23/15 Glimepiride 4 mg PO DAILY 06/23/15 Insulin Detemir [Levemir*] 20 units SQ BREAKFAST 06/23/15 Latanoprost 1 drop OPTH BEDTIME 06/23/15 Lisinopril 20 mg PO DAILY 06/23/15 Metformin HCl [Metformin HCl ER] 1,000 mg PO DAILY 06/23/15 Tamsulosin [Flomax*] 0.4 mg PO DAILY 06/23/15 Aspirin [Aspirin EC] 81 mg PO DAILY #30 tablet. 06/24/15 Clopidogrel Bisulfate [Plavix*] 75 mg PO DAILY #30 tablet 06/24/15 Finasteride [Proscar*] 5 mg PO DAILY #30 tab 06/24/15 Ascorbic Acid [Vitamin C] 500 mg PO DAILY 03/28/16 Cholecalciferol (Vitamin D3) [Vitamin D3] 2,000 unit PO BID 03/28/16 Cinnamon Bark [Cinnamon] 1,000 mg PO QID 03/28/16 Multivitamin [Multiple Vitamins] 1 each PO DAILY 03/28/16 [place]-3/Dha/Epa/Fish Oil [Fish Oil 1,000 mg Softgel] 1 each PO DAILY 03/28/16 - Past Medical/Surgical History Has patient received pneumonia vaccine in the past: No Diabetic: Yes -: NIDDM -: HTN -: enlarged prostate -: hyperlipidemia -: bilateral cataract sx - Family History Mother Medical History: Heart disease, Hypertension, Diabetes Father Medical History: Other (see notes) Notes: almost blind, respiratory issues Sister Medical History: Heart disease, Other (see notes) Notes: heart arrest, defibillator has since been removed - Social History Smoking Status: Never smoker Alcohol use: No CD- Drugs: No Caffeine use: Yes Place of Residence: Home Review of Systems 10-point ROS is otherwise unremarkable Physical Examination - Vital Signs Temperature: 97.7 F Blood Pressure: 154/72 Pulse: 58 Respirations: 18 Pulse Ox (%): 100 - Physical Exam General: Alert, In no apparent distress, Oriented x2, Confused (minimal) HEENT: Atraumatic, PERRLA, Mucous membr. moist/pink, EOMI, Sclerae nonicteric Neck: Supple, 2+ carotid pulse no bruit, No LAD, Without JVD or thyroid abnormality Respiratory: Clear to auscultation bilaterally, Normal air movement Cardiovascular: Regular rate/rhythm, Normal S1 S2, No murmurs Gastrointestinal: Normal bowel sounds, Soft and benign, Non-distended, No tenderness Musculoskeletal: No clubbing, No swelling, No tenderness Integumentary: No rashes Neurological: Normal gait, Normal speech, Normal strength at 5/5 x4 extr, Normal tone, Sensation intact, Cranial nerves 3-12 intact, Normal affect Lymphatics: No axilla or inguinal lymphadenopathy - Studies Laboratory Data (last 24 hrs) 06/07/18 03:19: WBC 6.3, Hgb [employer]PL[employer]TER, Hct [employer]TER, Plt Count [employer]HOUSE TR[employer]PL[employer]TER 06/07/18 03:19: Sodium 133 L, Potassium 4.6, BUN 26 H, Creatinine 1.97 H, Glucose 808 H* Assessment & Plan - Problems (Diagnosis) (1) Hyperosmolar hyperglycemic coma due to diabetes mellitus without ketoacidosis Current Visit: Yes Status: Acute (2) Alzheimer's dementia Current Visit: Yes Status: Acute (3) Diabetes mellitus Onset Date: 06/24/15 Current Visit: No Status: Acute (4) CHIKA (acute kidney injury) Current Visit: Yes Status: Acute - Plan Plan: 1. Aggressive IV hydration 2. Insulin SQ; SSI 3. Monitor electrolytes closely 4. Replace electrolytes as needed 5. Cont IV fluids once blood sugars are less than 250 then will DC 6. Resume diabetic diet; encourage family to arrange for a better discharge plan and to have private pay. 7. GI and DVT prophylaxis Discharge Plan: Home Plan to discharge in: 48 Hours - Advance Directives Does patient have a Living Will: No Does patient have a Durable POA for Healthcare: No - Code Status/Comfort Care Code Status Assessed: Yes Code Status: Full Code Critical Care: No Time Spent Managing PTS Care (In Minutes): 50
[2018-06-07 10:27] LABS: Urine Appearance CLEAR; Urine Bilirubin NEGATIVE (NEG); Urine Blood TRACE (NEG); Urine Color YELLOW; Urine Glucose 3+ (NEG); Urine Protein TRACE (NEG); Urine Specific Gravity 1.025 (1.005-1.030); Urine Urobilinogen 0.2 mg/dL (0.2-1.0)
[2018-06-07 11:01] LABS: Urine Bacteria <20 /HPF (NONE SEEN); Urine Culture Reflex Order NOT NEEDED; Urine Mucus 1+ /HPF (NONE SEEN)
[2018-06-07 12:30] LABS: BUN Blood Urea Nitrogen 21 mg/dL (7-18); Bicarbonate 28 mmol/L (21-32); Glucose Level 237 mg/dL (74-106); Lipase 157 U/L (73-393); Magnesium 1.8 mg/dL (1.8-2.4); Phosphorus 2.9 mg/dL (2.5-4.9); Potassium 3.5 mmol/L (3.5-5.1); Sodium Level 141 mmol/L (136-145)
[2018-06-07] MEDS ORDERED: INSULIN DEGLUDEC 30 UNIT SQ SCH (18:15)
[2018-06-08] MEDS: NA CHLORIDE 0.9% 1,000 ML IV SCH ×3 (02:00→12:00)
[2018-06-08 06:37] LABS: Absolute Lymphocytes (CBC) 1.2 K/uL (0.7-4.9); Absolute Monocytes 0.4 K/uL (0.1-1.3); Absolute Neutrophil 4.4 K/uL (1.8-8.0); Eosinophils % 1.8 % (0-4.4); Hematocrit 33.2 % (39.6-49.0); Lymphocytes % 19.5 % (15.3-44.8); MPV 7.1 fL (7.6-11.3); Monocytes % 6.7 % (3.3-12.3); RBC Red Blood Cell Count 3.95 M/uL (4.33-5.43)
[2018-06-08 06:53] LABS: Albumin 3.1 g/dL (3.4-5.0); Bilirubin Total 0.4 mg/dL (0.2-1.0); Potassium 3.5 mmol/L (3.5-5.1); Protein, Total 5.8 g/dL (6.4-8.2)
[2018-06-08] MEDS: INSULIN -REGULAR HUMAN 50 UNIT/0.5 ML ML SQ SCH ×3 (07:30→11:30)
[2018-06-08] MEDS: INSULIN GLARGINE 100 UNITS/ML SQ SCH ×2 (08:00)
[2018-06-08] MEDS ORDERED: ASPIRIN 81 MG CHEWABLE TABLET PO SCH (09:00)
[2018-06-08] MEDS ORDERED: ROSUVASTATIN 10 MG TAB PO SCH (09:00)
[2018-06-08] MEDS ORDERED: LISINOPRIL 20 MG TAB PO SCH (09:00)
[2018-06-08] MEDS ORDERED: MULTIVITAMIN TAB PO SCH (09:00)
[2018-06-08 10:39] VITALS: BP 133/60; TEMP 97.7
[2018-06-08 10:52] VITALS: O2SAT 96
--- NOTE | 2018-06-08 13:36 | P.SSS ---
Patient History Date of Service: 06/08/18 Reason for admission: hyperglycemia History of Present Illness: Patient is a 72-year-old gentleman who has a history of diabetes. He also has Alzheimer's dementia which has been progressive. He has been forgetting to take his medicine. According to the son his last week of pills in his medicine boxes were still unopened. His father had been forgetting to take his medications. Patient lives with his ; however, she is also not in good health. The son states that him and his siblings have started looking after the parents much more often. However, he was not aware that he had been missing his medications. When he went to his house at 1:00 a.m. because his mother called him regarding the patient he realized that he had not taken any medication. He checked his blood sugars it and did not register. He brought him into the emergency room and his blood sugars were greater than 800. he did not have any ketosis, so he was admitted to the hospital with hyperosmolar nonketotic syndrome. Patient has been more forgetful lately. It appears that his outline was dementia has been progressive. He will need close follow-up as an outpatient. Allergies No Known Allergies Allergy (Verified 03/28/16 09:19) Home Medications: Alendronate Sodium 75 mg PO EVERY 7TH DAY 06/07/18 Ascorbic Acid [Vitamin C*] 1,000 mg PO DAILY 06/07/18 Aspirin Chewable [Aspirin Chewable*] 81 mg PO DAILY 06/07/18 Insulin Degludec [Tresiba Flextouch U-100] 30 unit SQ SEECOM 06/07/18 Iron,Carbonyl/Vit C/Vit B12/FA [Iron 100 Plus Tablet] 65 mg PO DAILY 06/07/18 Lisinopril [Prinivil*] 20 mg PO DAILY 06/07/18 Metformin HCl [Metformin ER Gastric] 1,000 mg PO BID 06/07/18 Multivitamin [Multiple Vitamins] 1 tab PO DAILY 06/07/18 Rosuvastatin [Crestor*] 20 mg PO DAILY 06/07/18 Sitagliptin Phosphate [Januvia*] 50 mg PO DAILY 06/07/18 - Past Medical/Surgical History Has patient received pneumonia vaccine in the past: No Diabetic: Yes -: NIDDM -: HTN -: enlarged prostate -: hyperlipidemia -: bilateral cataract sx - Family History Mother -: Heart disease, Hypertension, Diabetes Father -: Other (see notes) Notes: almost blind, respiratory issues Sister -: Heart disease, Other (see notes) Notes: heart arrest, defibillator has since been removed - Social History Smoking Status: Never smoker Alcohol use: No CD- Drugs: No Caffeine use: Yes Place of Residence: Home Review of Systems 10-point ROS is otherwise unremarkable Physical Examination - Vital Signs Temperature: 97.7 F Blood Pressure: 133/60 Pulse: 55 Respirations: 17 Pulse Ox (%): 96 - Physical Exam General: Alert, In no apparent distress, Oriented x2, Confused (Intermittent) HEENT: Atraumatic, PERRLA, Mucous membr. moist/pink, EOMI, Sclerae nonicteric Neck: Supple, 2+ carotid pulse no bruit, No LAD, Without JVD or thyroid abnormality Respiratory: Clear to auscultation bilaterally, Normal air movement Cardiovascular: Regular rate/rhythm, Normal S1 S2 Gastrointestinal: Normal bowel sounds, No tenderness Musculoskeletal: No tenderness Integumentary: No rashes Neurological: Normal gait, Normal speech, Normal strength at 5/5 x4 extr, Normal tone, Normal affect Lymphatics: No axilla or inguinal lymphadenopathy Treatment Summary: Patient was admitted with hyperosmolar hyperglycemic syndrome due to diabetes with ketoacidosis. His blood sugars initially use or above 800 and. He was started on subcutaneous insulin along with sliding scale insulin, IV fluids. His blood sugars responded very well to IV fluids in the sliding scale insulin and came down to 100s. This likely happened because patient has been forgetting to take his medications due to his dementia. I discussed with his and son regarding importance of setting up a plan were patient has easy access to his medications. Per son, they are working on setting up a company to help with his medications. Per , his sons are working on helping set up something for the patient. He they are not interested in any kind of facility at this point. Patient remained stable throughout the stay otherwise. - Disposition Disposition: ROUTINE DISCHARGE Condition: GOOD Patient Discharge Instructions: Please the primary care physician in 1 week. Return to the ER for worsening symptoms. Diet: ADA Activity: Ad uday Time Spent Managing Pts Care (In Minutes): 55
[2018-06-12] MEDS ORDERED: ALENDRONATE 70 MG TAB PO SCH (06:00)
== END 2018-06-08 15:08 | disposition home or self-care (01) ==
LOC: ER 02:40 → ERHOLD 05:21 → 2ND 07:56
PROVIDERS: ADMIT Family Medicine; ATTEND Hospitalist
DX: E11.01 Type 2 diabetes mellitus with hyperosmolarity with coma (principal); N17.9 Acute kidney failure, unspecified; G30.9 Alzheimer's disease, unspecified; F02.80 Dementia in other diseases classified elsewhere, unspecified severity, without behavioral disturbance, psychotic disturbance, mood disturbance, and anxiety; I10 Essential (primary) hypertension; E78.5 Hyperlipidemia, unspecified
CPT/HCPCS: 36415 ×2; 80048 ×2; 80053; 81001; 82010; 82947; 82962 ×9; 83036; 83690; 83735; 84100; 85025 ×3; 96360; 96372; G0378 ×2; J7030 ×4

== ENCOUNTER 2018-08-12 11:23 | Emergency (ER) | payer OTHER, MEDICARE ==
--- OUTSIDE RECORDS SUMMARY | 2018-08-12 11:38 | XMS REPORT | Clinical Summary ---
:1945 [facility] Address [address] [place] [address] Care Team Providers Name Role Phone Unavailable [...] mouth 0 Active 40 MG daily. tabletIndications: edema lisinopril Take 20 mg by mouth 0 [...] 0 09/06/2017 Active TWIST LANCET) 28 gauge [facility] blood sugar Use as directed. 30 strip [...] with long- term current use of insulin ([facility]) 09/03/2017 Orders Only General Internal Medicine after 08/11/2017 Social History Tobacco Use Types Packs/Day Years [...] 400 ms QTC Calculation(Bazett) 467 ms P [place] 45 degrees R [place] 61 degrees T [place] 91 degrees Normal sinus rhythm ST & [...] (7) Routine 09/03/2017 5:53 AM CDT after 08/11/2017 Results RHYTHM STRIP - SCAN (09/07/2017 11:11 AM CDT) Narrative Performed At POC-Glucose meter (09/06/2017 8:29 AM CDT)Only the most recent of17 resultswithin the time period is included. POC-Glucose Meter 321 (H)Comment: Notified 70 - 110 mg/dL [facility] RN /TESTED AT [address] [address] Specimen Blood Performing Organization Address [facility]/Zipcode Phone Number [address] [phone] [place] CSF culture + gram stain (09/05/2017 2:32 PM CDT) Result No growth [facility] Gram Stain Result No WBCs [facility] Gram Stain Result No organisms seen [facility] Specimen Cerebrospinal Fluid - CSF, tube 1 Performing Organization Address [facility] Phone Number [address] [phone] [place] Cryptococcal antigen, CSF (09/05/2017 2:31 PM CDT) Cryptococcal Antigen, CSF Negative Negative, Interference [facility] Specimen Cerebrospinal Fluid - CSF Performing Organization Address [facility] Phone Number [address] [phone] [place] CSF cell count with differential (09/05/2017 2:31 PM CDT) Appearance Clear Clear [facility] Color Colorless Colorless [facility] RBCs 7 (H) 0 - 5 /cu mm [facility] WBCs 0 <=5 /cu mm [facility] RBCs Fresh? 100% Fresh [facility] # of Cells Diff'd 0 [facility] Tube Number 1 [facility] Specimen Cerebrospinal Fluid - CSF Performing Organization Address City/[facility]/Zipcode Phone Number [address] [phone] [place] West Nile Virus, CSF, IgG and IgM [...] by other flavivirus infections (e.g. Dengue virus, [place] encephalitis virus) may show cross-reactivity with WNV. Specimen Cerebrospinal Fluid - CSF Narrative Performed At Performing Lab [facility] *[facility] [address] [place] [phone] Chanel Bob MD Performing Organization Address City/[facility] Phone Number [facility] [place] [address] [address] [place] [address] VDRL, CSF (09/05/2017 2:31 PM CDT) VDRL, CSF NON-REACTIVE Nonreactive [facility] Specimen Cerebrospinal Fluid - CSF Performing Organization Address City/[facility]/Zipcode Phone Number [address] [address] [phone] [place] Protein, CSF (09/05/2017 2:31 PM CDT) Protein, CSF 73 (H) 15 - 45 mg/dL [facility] Specimen Cerebrospinal Fluid - CSF Performing Organization Address City/[facility]/Zipcode Phone Number [address] [phone] CENTER Glucose, CSF (09/05/2017 2:31 PM CDT) Glucose, CSF 165 (H) 40 - 70 mg/dL [facility] Specimen Cerebrospinal Fluid - CSF Performing Organization Address City/State/Zipcode Phone Number [facility] [address] [place] [address] CENTER Varicella zoster PCR, qualitative (09/05/2017 2:30 PM CDT) Source-Body Site CEREBROSPINAL FLUID [facility] VZV DNA,Qual.PCR NOT DETECTED [facility] Comment: INCORPORATED REFERENCE RANGE: NOT DETECTED This test was developed and its analytical performance characteristics have been determined by [facility]. It has not been cleared or approved by FDA. This assay has been validated pursuant to the CLIA regulations and is used for clinical purposes. Specimen Cerebrospinal Fluid - CSF Narrative Performed At Performing Lab [facility] *[facility] [address] [place] [phone] Chanel Bob MD Performing Organization Address City/[facility]/Zipcode Phone Number [facility] [place] [address] [facility]ORPORATED [address] [facility] CMV PCR Quantitative (09/05/2017 2:30 PM CDT)Only the most recent of2 resultswithin the time period is included. Scan Result [facility] Specimen Cerebrospinal Fluid Narrative Performed At Performing Organization Address City/State/[facility] Phone Number [facility] [address] [place] [address] HSV 1/2 PCR, Qualitative (09/05/2017 2:30 PM CDT) HSV, PCR NEGATIVE NEGATIVE [facility] Specimen Cerebrospinal Fluid - CSF Narrative Performed At Herpes Simplex Virus (HSV) not detected. [facility] These assays were performed by real-time PCR [...] and its performance characteristics determined by the [facility] Pathology Department, Section of Molecular Pathology.It has not been cleared or approved by the U.S. Food and Drug Administration (FDA), as FDA approval is not required for clinical use of the test.Validation was done as required by the Clinical Laboratory Amendments of 1988. Performing Organization Address City/State/Zipcode Phone Number [facility] [address] [place] [address] [phone] CENTER MR brain without IV contrast (09/04/2017 8:10 PM CDT) Narrative Performed At FINAL REPORT [facility] MRI brain Comparison: None Reason for exam: [...] 21:09:29 Performing Organization Address City/State/Zipcode Phone Number [facility] MRA neck without IV contrast (09/04/2017 8:10 PM CDT) Narrative Performed At FINAL REPORT [facility] MRA head and neck Comparison: None Reason for exam:Encephalopathy Discussion: 2 D and 3-D [id number]-ul-[id number] MRA of the head and neck was [...] exam: Encephalopathy Discussion: 2 D and 3-D hgiq-wr-wcyjjt MRA of the head and neck was [...] for exam:Encephalopathy Discussion: 2 D and 3-D pysa-zw-jbepkc MRA of the head and neck was [...] exam: Encephalopathy Discussion: 2 D and 3-D eyoh-hr-mbajnt MRA of the head and neck was [...] Verified Date/Time: 09/04/2017 21:12:06 Performing Organization Address City/State/[facility] Phone Number GE RIS ECG 12 lead (09/03/2017 9:01 PM CDT) Narrative Performed At Ventricular Rate 82 BPM GE MUSE Atrial Rate 82 BPM P-R Interval 134 ms QRS Duration 78 ms Q-T Interval 400 ms QTC Calculation(Bazett) 467 ms P [place] 45 degrees R [place] 61 degrees T [place] 91 degrees Baseline artifact Normal sinus rhythm [...] 400 ms QTC Calculation(Bazett) 467 ms P [place] 45 degrees R [place] 61 degrees T [place] 91 degrees Baseline artifact Normal sinus rhythm ST & T wave abnormality, consider anterolateral ischemia Prolonged QT Abnormal ECG No previous ECGs available Confirmed by MD MENDES YOCHAI ([id number]) on 09/05/2017 7:11:02 AM Performing Organization Address City/[facility] Phone Number [facility] MUSE Thyroid peroxidase (TPO) antibody (09/03/2017 6:47 PM CDT) Thyroid Peroxidase Ab 4 <9 IU/mL [facility] Specimen Blood Narrative Performed At Performing Lab [facility] EZ [facility] [address] [address] Lex Mcneill MD, PhD, [place] Performing Organization Address City/[facility] Phone Number [facility] [place] [address] [place] [address] MAR[place]ELL Titer & Pattern (09/03/2017 6:47 PM CDT) MAR[place]ELL Titer 1:40 [facility] MARIBELL Pattern Speckled [facility] Specimen Blood Performing Organization Address [facility] Phone Number [address] [address] [place] Anti-Nuclear Antibody (MARIBELL) (09/03/2017 6:47 PM CDT) MARIBELL Positive (A) Negative [facility] Specimen Blood Performing Organization Address [facility] Phone Number [address] [address] [phone] CENTER EEG AWAKE AND DROWSY (09/03/2017 2:51 PM CDT) Narrative Performed At Date(s) of EE09/03/17 GE [facility] DATE OF REPORT: 09/03/17 ACC: [id number] EEG Number: [id number] Test Location: Inpatient Room Start time: 14:30 Stop time: 14:51 ICD-10: R56.9 CPT Code: 80696 HISTORY: Mr. Petty is a RH 71 y.o. w/ IDDM, HTN, CAD c/b prior MIBPH s/p photoselective vaporization, and prior prostate CA s/p XRT (last completed in early 2016); he was transferred to [facility] on 09/03 for further evaluation of seizure-like episodes in the setting of cognitive decline and generalized weakness MEDICATIONS THAT COULD AFFECT EEG: None TECHNICAL SUMMARY: This is a digital video-EEG recorded with 32 input channels reviewed with bipolar and referential montages using the modified Double the Donation system nomenclature. DESCRIPTION OF RECORD: During the [...] of EE09/03/17 DATE OF REPORT: 09/03/17 ACC: [id number] EEG Number: [id number] Test Location: Inpatient Room Start time: 14:30 Stop time: 14:51 ICD-10: R56.9 CPT Code: 34035 HISTORY: Mr. Petty is a RH 71 y.o. w/ IDDM, HTN, CAD c/b prior MIBPH s/p photoselective vaporization, and prior prostate CA s/p XRT (last completed in early 2016); he was transferred to [facility] on 09/03 for further evaluation of seizure-like episodes in the setting of cognitive decline and generalized weakness MEDICATIONS THAT COULD AFFECT EEG: None TECHNICAL SUMMARY: This is a digital video-EEG recorded with 32 input channels reviewed with bipolar and referential montages using the modified Double the Donation system nomenclature. DESCRIPTION OF RECORD: During the [...] 11:18 AM CDT) Color, UA Light Yellow [facility] Clarity, UA Clear [facility] Specific [place], UA 1.005 1.001 - 1.035 [facility] pH, UA 5.0 5.0 - 8.0 [facility] Protein, UA Negative Negative [facility] Glucose, UA 300 mg/dL (A) Negative [facility] Ketones, UA Trace (A) Negative [facility] Bilirubin, UA Negative Negative [facility] Blood, UA Negative Negative [facility] Nitrite, UA Negative Negative [facility] Leukocytes, UA Negative Negative [facility] Urobilinogen, UA 0.2 0.2 - 1.0 mg/dL [facility] RBC, UA <1 /HPF [facility] WBC, UA 0 /HPF [facility] Mucus Rare [facility] Specimen Source [facility] Specimen Urine - Urine, Clean Catch Performing Organization Address [facility] Phone Number [address] [address] [phone] [place] TSH/Free T4 If Indicated (09/03/2017 5:53 AM CDT) TSH 0.49 0.35 - 4.94 uIU/mL [facility] Specimen Blood Narrative Performed At Fasting [facility] Performing Organization Address [facility] Phone Number [address] [address] [place] HIV-1 Antigen with HIV-1/2 Antibody (09/03/2017 5:53 AM CDT) HIV-1 Antigen with HIV 1&2 NON-REACTIVE Nonreactive [facility] Specimen Blood Performing Organization Address [facility] Phone Number [address] [address] [place] C-Reactive Protein (09/03/2017 5:53 AM CDT) CRP 0.68 (H) 0.00 - 0.50 mg/dL [facility] Specimen Blood Performing Organization Address [facility] Phone Number [address] [address] [place] CBC with platelet count + automated diff (09/03/2017 5:53 AM CDT) WBC 8.8 3.5 - 10.5 K/L [facility] RBC 4.13 (L) 4.63 - 6.08 M/L [facility] Hemoglobin 11.8 (L) 13.7 - 17.5 GM/DL [facility] Hematocrit 34.7 (L) 40.1 - 51.0 % [facility] MCV 84.0 79.0 - 92.2 fL [facility] MCH 28.6 25.7 - 32.2 pg [facility] MCHC 34.0 32.3 - 36.5 GM/DL [facility] RDW 13.0 11.6 - 14.4 % [facility] Platelets 203 150 - 450 K/CU MM [facility] MPV 9.5 9.4 - 12.4 fL [facility] nRBC 0 0 - 0 /100 WBC [facility] % Neutros 77 % [facility] % Lymphs 15 % [facility] % Monos 7 % [facility] % Eos 0 % [facility] % Baso 1 % [facility] # Neutros 6.73 (H) 1.78 - 5.38 K/L [facility] # Lymphs 1.28 (L) 1.32 - 3.57 K/L [facility] # Monos 0.59 0.30 - 0.82 K/L [facility] # Eos 0.00 (L) 0.04 - 0.54 K/L [facility] # Baso 0.07 0.01 - 0.08 K/L [facility] Immature Granulocytes-Relative 1 0 - 1 % [facility] Specimen Blood Performing Organization Address City/State/Zipcode Phone Number [facility] [address] [place] [address] [phone] CENTER RPR (09/03/2017 5:53 AM CDT) RPR Nonreactive Nonreactive [facility] Specimen Blood Performing Organization Address City/State/Zipcode Phone Number [address] [address] CENTER Sedimentation rate (09/03/2017 5:53 AM CDT) Sed Rate 86 (H) 0 - 40 mm/HR [facility] Specimen Blood Performing Organization Address City/[facility]/Zipcode Phone Number [address] [address] CENTER Prothrombin time/INR (09/03/2017 5:53 AM CDT) Protime 16.5 (H) 11.7 - 14.7 seconds [facility] INR 1.3 <=5.9 [facility] Specimen Blood Narrative Performed At [facility] RECOMMENDED COUMADIN/WARFARIN INR THERAPY RANGES STANDARD DOSE: 2.0 - 3.0 Includes: PROPHYLAXIS for venous thrombosis, systemic embolization; TREATMENT for venous thrombosis and/or pulmonary embolus. HIGH RISK: Target INR is 2.5-3.5 for patients with mechanical heart valves. Performing Organization Address City/State/Zipcode Phone Number [address] [address] C[place] Homocysteine - Fasting (09/03/2017 5:53 AM CDT) Homocysteine 14.8 5.1 - 15.4 umol/L [facility] Specimen Blood Narrative Performed At Fasting [facility] Performing Organization Address City/State/Zipcode Phone Number [address] [address] C[place] Hemoglobin A1c - Fasting (09/03/2017 5:53 AM CDT) Hemoglobin A1C 10.1 (H) 4.3 - 6.1 % [facility] Specimen Blood Narrative Performed At Fasting [facility] Performing Organization Address City/[facility] Phone Number [address] [address] CENTER Vitamin B12 (09/03/2017 5:53 AM CDT) Vitamin B12 717 213 - 816 pg/mL [facility] Specimen Blood Performing Organization Address City/[facility] Phone Number [address] [address] CENTER Ammonia (09/03/2017 5:53 AM CDT) Ammonia 13 (L) 18 - 72 mol/L [facility] Specimen Blood Performing Organization Address [facility] Phone Number [address] [address] [place] Hepatic function panel (09/03/2017 5:53 AM CDT) Protein, Total 7.0 6.0 - 8.3 gm/dL [facility] Albumin 4.0 3.5 - 5.0 g/dL [facility] Total Bilirubin 0.5 0.2 - 1.2 mg/dL [facility] Bilirubin, Direct 0.2 0.1 - 0.5 mg/dL [facility] Alkaline Phosphatase 77 40 - 150 U/L [facility] AST 12 5 - 34 U/L [facility] ALT 12 6 - 55 U/L [facility] Specimen Blood Narrative Performed At Fasting [facility] Performing Organization Address [facility] Phone Number [address] [address] CENTER Lipid panel (09/03/2017 5:53 AM CDT)Only the most recent of2 resultswithin the time period is included. Triglycerides 160 mg/dL [facility] Cholesterol 159 mg/dL [facility] HDL 37 mg/dL [facility] LDL Calculated 90 mg/dL [facility] Specimen Blood Narrative Performed At [facility] Triglyceride Reference Range: Low Risk <150 [id number] High Risk 200-499 Very High Risk>=500 Cholesterol Reference Range: Low Risk <200 [id number] High Risk>240 HDL Cholesterol Reference Range: Low Risk >=60 High Risk <40 LDL Cholesterol Reference Range: Optimal<100 Near [id number] Very High >=190 Performing Organization Address [facility] Phone Number [address] [address] [phone] CENTER Basic Metabolic Panel (09/03/2017 5:53 AM CDT) Sodium 137 136 - 145 meq/L [facility] Potassium 4.2 3.5 - 5.1 meq/L [facility] Chloride 103 98 - 107 meq/L [facility] CO2 23 22 - 29 meq/L [facility] BUN 34 (H) 7 - 21 mg/dL [facility] Creatinine 1.78 (H) 0.57 - 1.25 mg/dL [facility] Glucose 336 (H) 70 - 105 mg/dL [facility] Calcium 9.4 8.4 - 10.2 mg/dL [facility] EGFR 38Comment: ESTIMATED GFR IS mL/min/1.73 sq m [facility] NOT ACCURATE CREATININE [facility] CENTER CLEARANCE IN PREDICTING GLOMERULAR FILTRATION RATE. ESTIMATED GFR IS NOT APPLICABLE FOR DIALYSIS PATIENTS. Specimen Blood Narrative Performed At Fasting [facility] Performing Organization Address City/State/Zipcode Phone Number [facility] [address] [place] [address] CENTER after 08/11/2017 Insurance Payer Benefit Plan / Group Subscriber ID Type Phone Address MEDICARE MEDICARE A B xxxxxxxxxx Medicare MCR SUPPLEMENT/INDIVIDUAL AARP/[facility] xxxxxxxxxxx [facility] Advance Directives For more information, please contact:[address] [phone] Code Status Date Activated Date Inactivated Comments Full Code 09/03/2017 3:06 AM 09/06/2017 6:11 PM This code status was determined by: Patient
--- OUTSIDE RECORDS SUMMARY | 2018-08-12 11:38 | XMS REPORT ---
:1945 Author Organization [facility] Address [address] [place] [address] [address]. [address] [place] [address] Care Team Providers Name Role Phone KAR [...] Value Reference Range Comments SCAN RESULT (test zwaq=[id number]) CSF CULTURE + GRAM [id number] 17:06:00 Test Item Value Reference Range Comments CULTURE (BEAKER) (test fznk=9074) No growth GRAM STAIN RESULT (BEAKER) (test No WBCs zzcj=7953) GRAM STAIN RESULT (BEAKER) (test No organisms seen jzzf=28869) HSV 1/2 PCR, [id number] 14:20:00 Test Item Value Reference Range Comments HSV BY PCR (BEAKER) (test qvft=728) NEGATIVE NEGATIVE Herpes Simplex Virus (HSV) not [...] and its performance characteristics determined by the [facility] Pathology Department, Section of Molecular Pathology. It has not been cleared or approved by the U.S. Food and Drug Administration (FDA), as FDA approval is not required for clinical use of the test. Validation was done as required by the Clinical Laboratory Amendments of 1988.MARIBELL TITER AND [id number] 10:36:00 Test Item Value Reference Range Comments MARIBELL TITER (BEAKER) (test nwuc=5372) :40 MARIBELL PATTERN (BEAKER) (test yepv=2192) Speckled POCT-GLUCOSE [id number] 08:31:00 Test Item Value Reference Range Comments POC-GLUCOSE METER (BEAKER) 321 mg/dL 70-110 Notified MARCE REBOLLAR/TESTED AT [facility] (test bqiz=4877) [address] [place], [place] [id number] POCT-GLUCOSE [id number] 05:11:00 Test Item Value Reference Range Comments POC-GLUCOSE METER (BEAKER) 289 mg/dL 70-110 TESTED AT [address] (test vlqi=1370) [place] [address] CRYPTOCOCCAL ANTIGEN, [id number] 00:44:00 Test Item Value Reference Range Comments CRYPTOCOCCAL ANTIGEN, CSF (BEAKER) (test Negative Negative, Interference ajdr=922) VDRL, [id number] 00:30:00 Test Item Value Reference Range Comments SYPHILIS VDRL QUANTITATION CSF (BEAKER) (test Nonreactive Nonreactive zzqf=246) POCT-GLUCOSE [id number] 19:15:00 Test Item Value Reference Range Comments POC-GLUCOSE METER (BEAKER) 383 mg/dL 70-110 TESTED AT [address] (test sean=8983) [place] [address] POCT-GLUCOSE [id number] 18:43:00 Test Item Value Reference Range Comments POC-GLUCOSE METER (BEAKER) 429 mg/dL 70-110 Notified MARCE REBOLLAR/TESTED AT [facility] (test wqvi=2892) [address] [place], [place] [id number] CSF CELL COUNT [id number] 17:48:00 Test Item Value Reference Range Comments APPEARANCE CSF (BEAKER) (test oqsm=276) Clear Clear COLOR CSF (BEAKER) (test yhhh=671) Colorless Colorless RBC CSF (BEAKER) (test vdbc=179) 7 /cu mm 0-5 WBC CSF (BEAKER) (test wvuz=8775) 0 /cu mm <=5 RBCS FRESH (BEAKER) (test wajr=8151) 100% Fresh NUMBER OF CELLS DIFF'D (BEAKER) (test otab=0698) 0 TUBE NUMBER CSF (BEAKER) (test zpqh=0999) 1 POCT-GLUCOSE [id number] 17:38:00 Test Item Value Reference Range Comments POC-GLUCOSE METER (BEAKER) 438 mg/dL 70-110 Notified MARCE REBOLLAR/TESTED AT [facility] (test qole=6344) [address] [place] [address] PROTEIN, [id number] 15:45:00 Test Item Value Reference Range Comments PROTEIN CSF (BEAKER) (test awfd=524) 73 mg/dL 15-45 GLUCOSE, [id number] 15:44:00 Test Item Value Reference Range Comments GLUCOSE CSF (BEAKER) (test vspb=971) 165 mg/dL 40-70 POCT-GLUCOSE [id number] 12:16:00 Test Item Value Reference Range Comments POC-GLUCOSE METER (BEAKER) 375 mg/dL 70-110 Notified MARCE REBOLLAR/TESTED AT [facility] (test paqz=4720) [address] [place] [address] POCT-GLUCOSE [id number] 07:51:00 Test Item Value Reference Range Comments POC-GLUCOSE METER (BEAKER) 279 mg/dL 70-110 TESTED AT [address] (test nnit=0654) [place] [address] ANTI-NUCLEAR ANTIBODY (MAIRBELL)2017-09-05 05:34:00 Test Item Value Reference Range Comments ANTI-NUCLEAR ANTIBODY (MARIBELL) (BEAKER) (test Positive Negative guaf=600) POCT-GLUCOSE [id number] 21:44:00 Test Item Value Reference Range Comments POC-GLUCOSE METER (BEAKER) 244 mg/dL 70-110 TESTED AT [address] (test axub=7743) [place] [address] MR, MRA, BRAIN, WITHOUT [id number] 21:12:00Reason for exam:-> Ischemic Stroke EvaluationFINAL REPORT MRA head and neck Comparison: None Reason for exam: Encephalopathy Discussion: 2 D and 3 -D tsrv-pe-ftflfd MRA of the head and neck was [...] 2017 09:12 PMMR, MRA, NECK, WITHOUT IV [id number] 21:12:00Reason for exam:->Ischemic Stroke EvaluationFINAL REPORT MRA head and neck Comparison: None Reason for exam: Encephalopathy Discussion: 2 D and 3-D emuq-xy-roxdei MRA of the head and neck was [...] SOTO M.D. on 09:12 PMMR, BRAIN, WITHOUT [id number] 21:09:00FINAL REPORT MRI brain Comparison: None Reason [...] SHERRIE SOTO M.D. on 09/04 09:09 PMPOCT-GLUCOSE [id number] 18:53:00 Test Item Value Reference Range Comments POC-GLUCOSE METER (BEAKER) 243 mg/dL 70-110 TESTED AT [address] (test ncoq=1927) [facility] [address] POCT-GLUCOSE [id number] 14:28:00 Test Item Value Reference Range Comments POC-GLUCOSE METER (BEAKER) 363 mg/dL 70-110 TESTED AT [address] (test vmpn=8969) [facility] [address] POCT-GLUCOSE [id number] 14:22:00 Test Item Value Reference Range Comments POC-GLUCOSE METER (BEAKER) 341 mg/dL 70-110 TESTED AT [address] (test trxy=5502) [place] [address] POCT-GLUCOSE [id number] 14:18:00 Test Item Value Reference Range Comments POC-GLUCOSE METER (BEAKER) 441 mg/dL 70-110 TESTED AT [address] (test zenb=1055) [facility] [address] POCT-GLUCOSE [id number] 12:12:00 Test Item Value Reference Range Comments POC-GLUCOSE METER (BEAKER) 326 mg/dL 70-110 TESTED AT [address] (test rgtc=4763) [place] [address] POCT-GLUCOSE [id number] 08:50:00 Test Item Value Reference Range Comments POC-GLUCOSE METER (BEAKER) 153 mg/dL 70-110 TESTED AT [address] (test wjti=5694) [facility] [address] [id number] 07:11:00 Test Item Value Reference Range Comments RPR SCREEN (BEAKER) (test thmq=248) Nonreactive Nonreactive POCT-GLUCOSE [id number] 21:31:00 Test Item Value Reference Range Comments POC-GLUCOSE METER (BEAKER) 306 mg/dL 70-110 Notified MARCE REBOLLAR/TESTED AT [facility] (test lgbo=3445) [address] [place] [address] POCT-GLUCOSE [id number] 17:42:00 Test Item Value Reference Range Comments POC-GLUCOSE METER (BEAKER) 395 mg/dL 70-110 TESTED AT [address] (test okci=0596) [place] [address] EEG AWAKE AND [id number] 16:15:00Reason for exam:->SeizuresDate(s) of EE09/03/17DATE OF REPORT: 09/03/17MRN: [id number]: [id number] Number: [id number] Location: Inpatient RoomStart time: 14:30Stop time: 14:51ICD-10: R56.9CPT Code: 49523 HISTORY: Mr. Powers is a RH 71 y.o. 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 Elisa Jordan MDNeurophysiology Fellow, [id number] note: I personally reviewed this EEG record in its entirety and I agree with the details of this report. Martha Pace MD Clinical Neurophysiology/Epilepsy Attending URINALYSIS W/ REFLEX URINE [id number] 11:56:00 Test Item Value Reference Range Comments COLOR (BEAKER) (test spsp=389) Light Yellow CLARITY (BEAKER) (test uwej=739) Clear SPECIFIC GRAVITY UA (BEAKER) (test guwq=526) 1.005 1.001-1.035 PH UA (BEAKER) (test vsoq=627) 5.0 5.0-8.0 PROTEIN UA (BEAKER) (test jrcn=697) Negative Negative GLUCOSE UA (BEAKER) (test vflm=156) 300 mg/dL Negative KETONES UA (BEAKER) (test ytpo=934) Trace Negative BILIRUBIN UA (BEAKER) (test dkku=075) Negative Negative BLOOD UA (BEAKER) (test osvi=276) Negative Negative NITRITE UA (BEAKER) (test zxgz=423) Negative Negative LEUKOCYTE ESTERASE UA (BEAKER) (test fepy=285) Negative Negative UROBILINOGEN UA (BEAKER) (test wudj=735) 0.2 mg/dL 0.2-1.0 RBC UA (BEAKER) (test tfuz=721) < /HPF WBC UA (BEAKER) (test evhw=580) 0 /HPF MUCUS (BEAKER) (test vqno=5851) Rare SOURCE(BEAKER) (test wyvb=4783) SEDIMENTATION [id number] 11:22:00 Test Item Value Reference Range Comments SEDIMENTATION RATE, ERYTHROCYTE (BEAKER) (test 86 mm/HR 0-40 ormt=624) HEMOGLOBIN [id number] 10:37:00 Test Item Value Reference Range Comments HEMOGLOBIN A1C (BEAKER) (test nafh=267) 10.1 % 4.3-6.1 FastingVITAMIN [id number] 09:09:00 Test Item Value Reference Range Comments VITAMIN B12 (BEAKER) (test plps=979) 717 pg/mL 213-816 [id number] 08:49:00 Test Item Value Reference Range Comments HOMOCYSTEINE (BEAKER) (test aclm=915) 14.8 umol/L 5.1-15.4 FastingPOCT-GLUCOSE [id number] 08:39:00 Test Item Value Reference Range Comments POC-GLUCOSE METER (BEAKER) 329 mg/dL 70-110 Notified MARCE REBOLLAR/TESTED AT [facility] (test ackg=4402) [address] [facility] [address] TSH/FREE T4 IF [id number] 07:33:00 Test Item Value Reference Range Comments THYROID STIMULATING HORMONE (BEAKER) (test 0.49 uIU/mL 0.35-4.94 rrbz=281) FastingHIV-1 ANTIGEN WITH HIV-1/2 [id number] 07:28:00 Test Item Value Reference Range Comments HIV-1 ANTIGEN WITH HIV 1\T\2 ANTIBODY (2) Nonreactive Nonreactive (BEAKER) (test vyxm=6437) C-REACTIVE [id number] 07:08:00 Test Item Value Reference Range Comments C-REACTIVE PROTEIN (BEAKER) (test yndk=180) 0.68 mg/dL 0.00-0.50 LIPID [id number] 07:08:00 Test Item Value Reference Range Comments TRIGLYCERIDES (BEAKER) (test ljhf=077) 155 mg/dL CHOLESTEROL (BEAKER) (test dwbl=636) 155 mg/dL HDL CHOLESTEROL (BEAKER) (test kvla=926) 35 mg/dL LDL CHOLESTEROL CALCULATED (BEAKER) (test 89 mg/dL xvsv=323) Triglyceride Reference Range: Low Risk <150 Borderline 150- 199 High Risk 200-499 Very High Risk >=500Cholesterol Reference Range: Low Risk <200 Borderline 200-239 High Risk > 240HDL Cholesterol Reference Range: Low Risk >=60 High Risk <40LDL Cholesterol Reference Range: Optimal <100 Near Optimal 100-129 Borderline 130-159 High 160-189 Very High >=190 FastingBASIC METABOLIC [id number] 07:08:00 Test Item Value Reference Range Comments SODIUM (BEAKER) (test 137 meq/L 136-145 fnhz=176) POTASSIUM (BEAKER) (test 4.2 meq/L 3.5-5.1 inyv=984) CHLORIDE (BEAKER) (test 103 meq/L 98-107 iave=258) CO2 (BEAKER) (test 23 meq/L 22-29 bccq=076) BLOOD UREA NITROGEN 34 mg/dL 7-21 (BEAKER) (test eati=602) CREATININE (BEAKER) (test 1.78 mg/dL 0.57-1.25 vcbo=494) GLUCOSE RANDOM (BEAKER) 336 mg/dL 70-105 (test aaml=862) CALCIUM (BEAKER) (test 9.4 mg/dL 8.4-10.2 jnfo=454) EGFR (BEAKER) (test 38 mL/min/1.73 sq m ESTIMATED GFR IS NOT nrro=5551) ACCURATE CREATININE CLEARANCE IN PREDICTING GLOMERULAR FILTRATION RATE. ESTIMATED GFR IS NOT APPLICABLE FOR DIALYSIS PATIENTS. FastingHEPATIC FUNCTION [id number] 07:08:00 Test Item Value Reference Range Comments TOTAL PROTEIN (BEAKER) (test lijy=692) 7.0 gm/dL 6.0-8.3 ALBUMIN (BEAKER) (test baet=2954) 4.0 g/dL 3.5-5.0 BILIRUBIN TOTAL (BEAKER) (test btfk=421) 0.5 mg/dL 0.2-1.2 BILIRUBIN DIRECT (BEAKER) (test fiuh=776) 0.2 mg/dL 0.1-0.5 ALKALINE PHOSPHATASE (BEAKER) (test vraz=105) 77 U/L 40-150 AST (SGOT) (BEAKER) (test jfwo=760) 12 U/L 5-34 ALT (SGPT) (BEAKER) (test ehok=891) 12 U/L 6-55 FastingLIPID [id number] 07:06:00 Test Item Value Reference Range Comments TRIGLYCERIDES (BEAKER) (test ckol=099) 160 mg/dL CHOLESTEROL (BEAKER) (test lpyy=467) 159 mg/dL HDL CHOLESTEROL (BEAKER) (test urnr=064) 37 mg/dL LDL CHOLESTEROL CALCULATED (BEAKER) (test 90 mg/dL xijb=215) Triglyceride Reference Range: Low Risk <150 Borderline 150- 199 High Risk 200-499 Very High Risk >=500Cholesterol Reference Range: Low Risk <200 Borderline 200-239 High Risk > 240HDL Cholesterol Reference Range: Low Risk >=60 High Risk <40LDL Cholesterol Reference Range: Optimal <100 Near Optimal 100-129 Borderline 130-159 High 160-189 Very High >=[id number] 06:55:00 Test Item Value Reference Range Comments AMMONIA (BEAKER) (test conj=074) 13 mol/L 18-72 PROTHROMBIN [id number] 06:33:00 Test Item Value Reference Range Comments PROTIME (BEAKER) (test mtan=481) 16.5 seconds 11.7-14.7 INR (BEAKER) (test ofmh=029) 1.3 <=5.9 RECOMMENDED COUMADIN/WARFARIN INR THERAPY RANGESSTANDARD DOSE: 2.0 - 3.0 Includes: PROPHYLAXIS forvenous thrombosis, systemic embolization; TREATMENT for venous thrombosis and/or pulmonary embolus.HIGH RISK: Target INR is 2.5-3.5 for patients with mechanical heart valves.CBC W/PLT COUNT & AUTO [id number] 06:21:00 Test Item Value Reference Range Comments WHITE BLOOD CELL COUNT (BEAKER) (test mawz=990) 8.8 K/ L 3.5-10.5 RED BLOOD CELL COUNT (BEAKER) (test mkoz=769) 4.13 M/ L 4.63-6.08 HEMOGLOBIN (BEAKER) (test uqxt=575) 11.8 GM/DL 13.7-17.5 HEMATOCRIT (BEAKER) (test avkl=462) 34.7 % 40.1-51.0 MEAN CORPUSCULAR VOLUME (BEAKER) (test cchl=747) 84.0 fL 79.0-92.2 MEAN CORPUSCULAR HEMOGLOBIN (BEAKER) (test 28.6 pg 25.7-32.2 ubdb=145) MEAN CORPUSCULAR HEMOGLOBIN CONC (BEAKER) (test 34.0 GM/DL 32.3-36.5 gale=545) RED CELL DISTRIBUTION WIDTH (BEAKER) (test 13.0 % 11.6-14.4 xsid=334) PLATELET COUNT (BEAKER) (test qire=334) 203 K/CU MM 150-450 MEAN PLATELET VOLUME (BEAKER) (test qxsq=794) 9.5 fL 9.4-12.4 NUCLEATED RED BLOOD CELLS (BEAKER) (test 0 /100 WBC 0-0 niii=948) NEUTROPHILS RELATIVE PERCENT (BEAKER) (test 77 % vkvy=677) LYMPHOCYTES RELATIVE PERCENT (BEAKER) (test 15 % nzmp=004) MONOCYTES RELATIVE PERCENT (BEAKER) (test 7 % etef=810) EOSINOPHILS RELATIVE PERCENT (BEAKER) (test 0 % intd=602) BASOPHILS RELATIVE PERCENT (BEAKER) (test 1 % eutd=731) NEUTROPHILS ABSOLUTE COUNT (BEAKER) (test 6.73 K/ L 1.78-5.38 pvzn=488) LYMPHOCYTES ABSOLUTE COUNT (BEAKER) (test 1.28 K/ L 1.32-3.57 gepd=684) MONOCYTES ABSOLUTE COUNT (BEAKER) (test 0.59 K/ L 0.30-0.82 edeg=391) EOSINOPHILS ABSOLUTE COUNT (BEAKER) (test 0.00 K/ L 0.04-0.54 oihi=258) BASOPHILS ABSOLUTE COUNT (BEAKER) (test 0.07 K/ L 0.01-0.08 dfek=632) IMMATURE GRANULOCYTES-RELATIVE PERCENT (BEAKER) 1 % 0-1 (test srnz=9173)
--- NOTE | 2018-08-12 12:19 | EDPHYS ---
Physician Documentation [facility] Name: Agustin Petty Sr Age: 72 yrs Sex: Male : 1945 Arrival Date: 08/12/2018 Time: 11:34 Bed 27 Private MD: Michael Madrid ED Physician Burton Fragoso HPI: 08/12 12:17 This 72 yrs old Male presents to ER via Wheelchair with complaints of High jagdeep Blood Sugar. 12:17 The patient or guardian reports hyperglycemia. Onset: The symptoms/episode jagdeep began/occurred at an unknown time. Associated signs and symptoms: Pertinent positives: None. Pertinent negatives: None. Current symptoms: In the emergency department the patient's symptoms are unchanged from the initial presentation. The patient has experienced similar episodes in the past, multiple times. Historical: - Allergies: :52 No Known Allergies; aa5 - PMHx: :52 Diabetes - NIDDM; Hyperlipidemia; Hypertension; aa5 - Immunization history:: Flu vaccine status is unknown. - Social history:: Smoking status: Patient/guardian denies using tobacco. - Ebola Screening: : No symptoms or risks identified at this time. - Family history:: not pertinent. ROS: 12:17 Constitutional: Negative for fever, chills, and weight loss, Eyes: Negative for injury, jagdeep pain, redness, and discharge, ENT: Negative for injury, pain, and discharge, Neck: Negative for injury, pain, and swelling, Cardiovascular: Negative for chest pain, palpitations, and edema, Respiratory: Negative for shortness of breath, cough, wheezing, and pleuritic chest pain, Abdomen/GI: Negative for abdominal pain, nausea, vomiting, diarrhea, and constipation, Back: Negative for injury and pain, : Negative for injury, bleeding, discharge, and swelling, MS/Extremity: Negative for injury and deformity, Skin: Negative for injury, rash, and discoloration, Neuro: Negative for headache, weakness, numbness, tingling, and seizure, Psych: Negative for depression, anxiety, suicide ideation, homicidal ideation, and hallucinations, Allergy/Immunology: Negative for hives, rash, and allergies, Endocrine: Negative for neck swelling, polydipsia, polyuria, polyphagia, and marked weight changes, Hematologic/Lymphatic: Negative for swollen nodes, abnormal bleeding, and unusual bruising. Exam: 12:17 Constitutional: This is a well developed, well nourished patient who is awake, alert, jagdeep and in no acute distress. Head/Face: Normocephalic, atraumatic. Eyes: Pupils equal round and reactive to light, extra-ocular motions intact. Lids and lashes normal. Conjunctiva and sclera are non-icteric and not injected. Cornea within normal limits. Periorbital areas with no swelling, redness, or edema. ENT: Nares patent. No nasal discharge, no septal abnormalities noted. Tympanic membranes are normal and external auditory canals are clear. Oropharynx with no redness, swelling, or masses, exudates, or evidence of obstruction, uvula midline. Mucous membranes moist. Neck: Trachea midline, no thyromegaly or masses palpated, and no cervical lymphadenopathy. Supple, full range of motion without nuchal rigidity, or vertebral point tenderness. No Meningismus. Chest/axilla: Normal chest wall appearance and motion. Nontender with no deformity. No lesions are appreciated. Cardiovascular: Regular rate and rhythm with a normal S1 and S2. No gallops, murmurs, or rubs. Normal PMI, no JVD. No pulse deficits. Respiratory: Lungs have equal breath sounds bilaterally, clear to auscultation and percussion. No rales, rhonchi or wheezes noted. No increased work of breathing, no retractions or nasal flaring. Abdomen/GI: Soft, non-tender, with normal bowel sounds. No distension or tympany. No guarding or rebound. No evidence of tenderness throughout. Back: No spinal tenderness. No costovertebral tenderness. Full range of motion. Male : Normal genitalia with no discharge or lesions. Skin: Warm, dry with normal turgor. Normal color with no rashes, no lesions, and no evidence of cellulitis. MS/ Extremity: Pulses equal, no cyanosis. Neurovascular intact. Full, normal range of motion. Neuro: Awake and alert, GCS 15, oriented to person, place, time, and situation. Cranial nerves II-XII grossly intact. Motor strength 5/5 in all extremities. Sensory grossly intact. Cerebellar exam normal. Normal gait. Psych: Awake, alert, with orientation to person, place and time. Behavior, mood, and affect are within normal limits. Vital Signs: 11:52 BP 165 / 66; Pulse 66; Resp 16 S; Temp 98.1(TE); Pulse Ox 99% on R/A; aa5 MDM: 11:55 Patient medically screened. [facility] 12:19 Data reviewed: vital signs, nurses notes. [facility] 08/12 12:17 Order name: Basic Metabolic Panel jagdeep Administered Medications: No medications were administered Point of Care Testing: Blood Glucose: 11:52 Blood Glucose: 408 mg/dL; aa5 Ranges: Critical Glucose Levels:Adult <50 mg/dl or >400 mg/dl <40 mg/dl or >180 mg/dl Disposition: 08/12/18 12:19 Patient has left against medical advice. Impression: Type 2 diabetes mellitus, Hyperglycemia, unspecified. - Patients states they are going to Home. - Condition is Undetermined. - Discharge Instructions: Type 2 Diabetes Mellitus, Diagnosis, Adult, Hyperglycemia, Blood Glucose Monitoring, Adult, Hyperglycemia, Amfo-fr-Zxai, Type 2 Diabetes Mellitus, Diagnosis, Adult, Qljn-yz-Vocb. Follow up: Private Physician; When: Upon discharge from the Emergency Department; Reason: Recheck today's complaints, Continuance of care, Re-evaluation by your physician. - Problem is an ongoing problem. - Symptoms are unchanged. Signatures: Dispatcher [employer] EDMS Emerita Cerda RN RN ch Anderson, Corey, MD MD cha Calderon, Audri, RN RN aa5 Corrections: (The following items were deleted from the chart) 12:19 12:19 08/12/2018 12:19 Patients has left against medical advice. Impression: Type 2 jagdeep diabetes mellitus. Patient states they are going to Home. Condition is Undetermined. Follow up: Private Physician; When: Upon discharge from the Emergency Department; Reason: Recheck today's complaints, Continuance of care, Re-evaluation by your physician. Problem is an ongoing problem. Symptoms are unchanged. [facility] 12:20 12:19 08/12/2018 12:19 Patients has left against medical advice. Impression: Type 2 ch diabetes mellitus; Hyperglycemia, unspecified. Patient states they are going to Home. Condition is Undetermined. Follow up: Private Physician; When: Upon discharge from the Emergency Department; Reason: Recheck today's complaints, Continuance of care, Re-evaluation by your physician. Problem is an ongoing problem. Symptoms are unchanged. [facility]
--- NOTE | 2018-08-12 12:19 | ER ---
Nurse's Notes [facility] Name: Agustin Petty Sr Age: 72 yrs Sex: Male : 1945 Arrival Date: 08/12/2018 Time: 11:34 Bed 27 Private MD: Michael Madrid Diagnosis: Type 2 diabetes mellitus;Hyperglycemia, unspecified Presentation: 08/12 11:50 Presenting complaint: Pt's son states "his blood sugar was about 421 about an hour aa5 ago". Pt denies any symptoms. Pt reports last meal was last night. Pt states "I thought I took my insulin today but my son says I didn't ". Transition of care: patient was not received from another setting of care. Onset of symptoms was August 12, 2018. Risk Assessment: Do you want to hurt yourself or someone else? Patient reports no desire to harm self or others. Initial Sepsis Screen: Does the patient meet any 2 criteria? No. Patient's initial sepsis screen is negative. Does the patient have a suspected source of infection? No. Patient's initial sepsis screen is negative. Care prior to arrival: None. 11:50 Acuity: ALVIN 3 aa5 11:50 Method Of Arrival: Wheelchair aa5 Historical: - Allergies: 11:52 No Known Allergies; aa5 - PMHx: 11:52 Diabetes - NIDDM; Hyperlipidemia; Hypertension; aa5 - Immunization history:: Flu vaccine status is unknown. - Social history:: Smoking status: Patient/guardian denies using tobacco. - Ebola Screening: : No symptoms or risks identified at this time. - Family history:: not pertinent. Screenin:17 Abuse screen: Denies threats or abuse. Denies injuries from another. Nutritional ch screening: No deficits noted. Tuberculosis screening: No symptoms or risk factors identified. Fall Risk None identified. Assessment: 12:17 Reassessment: pt states his mother is dying, and he wants to be by her side. pt ch requests insulin right now, and then he leaves, for he just wants to leave. erp in room, pt ama with understanding of risks. General: Appears in no apparent distress. comfortable, Behavior is calm, cooperative, appropriate for age. Pain: Denies pain. Neuro: No deficits noted. Cardiovascular: No deficits noted. Respiratory: Airway is patent Respiratory effort is even, unlabored, Breath sounds are clear bilaterally. GI: No signs and/or symptoms were reported involving the gastrointestinal system. : No signs and/or symptoms were reported regarding the genitourinary system. Derm: Skin is pink, warm \\T\\ dry. Musculoskeletal: No signs and/or symptoms reported regarding the musculoskeletal system. Vital Signs: 11:52 BP 165 / 66; Pulse 66; Resp 16 S; Temp 98.1(TE); Pulse Ox 99% on R/A; aa5 ED Course: 11:34 Patient arrived in ED. as 11:34 Michael Madrid MD is Private Physician. as 11:50 Arm band placed on. aa5 11:51 Triage completed. aa5 11:55 Burton Fragoso MD is Attending Physician. [facility] 12:16 Emerita Cerda, RN is Primary Nurse. 12:17 No apparent distress. Resting quietly. ch 12:17 Patient has correct armband on for positive identification. Placed in gown. Bed in low ch position. Call light in reach. Side rails up X 1. Adult w/ patient. 12:17 No provider procedures requiring assistance completed. Patient did not have IV access ch during this emergency room visit. Administered Medications: No medications were administered Point of Care Testing: Blood Glucose: 11:52 Blood Glucose: 408 mg/dL; aa5 Ranges: Outcome: 12:17 AMA AMA form signed 12:17 Condition: stable 12:17 Instructed on return precautions 12:20 Patient left the ED. Signatures: Emerita Cerda, RN RN Burton Fragoso MD MD cha Martinez, Amelia as Calderon, Audri, RN RN aa5
[2018-08-12 12:29] VITALS: BP 165/66; TEMP 98.1; O2SAT 99
== END 2018-08-12 12:20 | disposition left against medical advice (07) ==
LOC: ER 11:23
DX: E11.65 Type 2 diabetes mellitus with hyperglycemia (principal)
CPT/HCPCS: 82962; 99282

== ENCOUNTER 2018-08-12 19:46 | Emergency (ER) | payer OTHER, MEDICARE ==
--- OUTSIDE RECORDS SUMMARY | 2018-08-12 19:49 | XMS REPORT ---
:1945 [facility] Address [address] [place] [address] [address] Care Team Providers Name Role Phone KAR [...] Value Reference Range Comments SCAN RESULT (test mher=[id number]) CSF CULTURE + GRAM [id number] 17:06:00 Test Item Value Reference Range Comments CULTURE (BEAKER) (test rxbr=9928) No growth GRAM STAIN RESULT (BEAKER) (test No WBCs mcbm=5821) GRAM STAIN RESULT (BEAKER) (test No organisms seen lgoq=64159) HSV 1/2 PCR, [id number] 14:20:00 Test Item Value Reference Range Comments HSV BY PCR (BEAKER) (test bngu=828) NEGATIVE NEGATIVE Herpes Simplex Virus (HSV) not [...] and its performance characteristics determined by the [facility] Pathology Department, Section of Molecular Pathology. It has not been cleared or approved by the U.S. Food and Drug Administration (FDA), as FDA approval is not required for clinical use of the test. Validation was done as required by the Clinical Laboratory Amendments of 1988.MARIBELL TITER AND [id number] 10:36:00 Test Item Value Reference Range Comments MARIBELL TITER (BEAKER) (test nfci=6894) :40 MARIBELL PATTERN (BEAKER) (test dgth=8067) Speckled POCT-GLUCOSE [id number] 08:31:00 Test Item Value Reference Range Comments POC-GLUCOSE METER (BEAKER) 321 mg/dL 70-110 Notified MARCE REBOLLAR/TESTED AT [facility] (test vlaf=8956) [address] [place], [place] [id number] POCT-GLUCOSE [id number] 05:11:00 Test Item Value Reference Range Comments POC-GLUCOSE METER (BEAKER) 289 mg/dL 70-110 TESTED AT [address] (test zigu=6935) [place] [address] CRYPTOCOCCAL ANTIGEN, [id number] 00:44:00 Test Item Value Reference Range Comments CRYPTOCOCCAL ANTIGEN, CSF (BEAKER) (test Negative Negative, Interference cdjm=614) VDRL, [id number] 00:30:00 Test Item Value Reference Range Comments SYPHILIS VDRL QUANTITATION CSF (BEAKER) (test Nonreactive Nonreactive thqn=143) POCT-GLUCOSE [id number] 19:15:00 Test Item Value Reference Range Comments POC-GLUCOSE METER (BEAKER) 383 mg/dL 70-110 TESTED AT [address] (test isug=1900) [place] [address] POCT-GLUCOSE [id number] 18:43:00 Test Item Value Reference Range Comments POC-GLUCOSE METER (BEAKER) 429 mg/dL 70-110 Notified MARCE REBOLLAR/TESTED AT [facility] (test tixb=4585) [address] [place], [place] [address] CSF CELL COUNT [id number] 17:48:00 Test Item Value Reference Range Comments APPEARANCE CSF (BEAKER) (test lcyc=713) Clear Clear COLOR CSF (BEAKER) (test llty=518) Colorless Colorless RBC CSF (BEAKER) (test cpzz=737) 7 /cu mm 0-5 WBC CSF (BEAKER) (test otpm=0858) 0 /cu mm <=5 RBCS FRESH (BEAKER) (test mmkp=8298) 100% Fresh NUMBER OF CELLS DIFF'D (BEAKER) (test uosi=5611) 0 TUBE NUMBER CSF (BEAKER) (test ejvw=8140) 1 POCT-GLUCOSE [id number] 17:38:00 Test Item Value Reference Range Comments POC-GLUCOSE METER (BEAKER) 438 mg/dL 70-110 Notified MARCE REBOLLAR/TESTED AT [facility] (test quoa=0005) [address] [place] [address] PROTEIN, [id number] 15:45:00 Test Item Value Reference Range Comments PROTEIN CSF (BEAKER) (test cpyr=471) 73 mg/dL 15-45 GLUCOSE, [id number] 15:44:00 Test Item Value Reference Range Comments GLUCOSE CSF (BEAKER) (test jqix=533) 165 mg/dL 40-70 POCT-GLUCOSE [id number] 12:16:00 Test Item Value Reference Range Comments POC-GLUCOSE METER (BEAKER) 375 mg/dL 70-110 Notified MARCE REBOLLAR/TESTED AT [facility] (test sjcl=6326) [address] [place] [address] POCT-GLUCOSE [id number] 07:51:00 Test Item Value Reference Range Comments POC-GLUCOSE METER (BEAKER) 279 mg/dL 70-110 TESTED AT [address] (test fwva=7371) [place] [address] ANTI-NUCLEAR ANTIBODY (MARIBELL)2017-09-05 05:34:00 Test Item Value Reference Range Comments ANTI-NUCLEAR ANTIBODY (MARIBELL) (BEAKER) (test Positive Negative tzbh=162) POCT-GLUCOSE [id number] 21:44:00 Test Item Value Reference Range Comments POC-GLUCOSE METER (BEAKER) 244 mg/dL 70-110 TESTED AT [address] (test ziqx=8458) [facility] [address] MR, MRA, BRAIN, WITHOUT [id number] 21:12:00Reason for exam:-> Ischemic Stroke EvaluationFINAL REPORT MRA head and neck Comparison: None Reason for exam: Encephalopathy Discussion: 2 D and 3 -D snlk-sc-tkacfy MRA of the head and neck was [...] 2017 09:12 PMMR, MRA, NECK, WITHOUT IV [id number] 21:12:00Reason for exam:->Ischemic Stroke EvaluationFINAL REPORT MRA head and neck Comparison: None Reason for exam: Encephalopathy Discussion: 2 D and 3-D tvgt-po-qnlhsr MRA of the head and neck was [...] SOTO M.D. on 09:12 PMMR, BRAIN, WITHOUT [id number] 21:09:00FINAL REPORT MRI brain Comparison: None Reason [...] SHERRIE SOTO M.D. on 09/04 09:09 PMPOCT-GLUCOSE [id number] 18:53:00 Test Item Value Reference Range Comments POC-GLUCOSE METER (BEAKER) 243 mg/dL 70-110 TESTED AT [address] (test rqzg=3952) [facility] [address] POCT-GLUCOSE [id number] 14:28:00 Test Item Value Reference Range Comments POC-GLUCOSE METER (BEAKER) 363 mg/dL 70-110 TESTED AT [address] (test itng=9847) [facility] [address] POCT-GLUCOSE [id number] 14:22:00 Test Item Value Reference Range Comments POC-GLUCOSE METER (BEAKER) 341 mg/dL 70-110 TESTED AT [address] (test jaxs=1596) [facility] [address] POCT-GLUCOSE [id number] 14:18:00 Test Item Value Reference Range Comments POC-GLUCOSE METER (BEAKER) 441 mg/dL 70-110 TESTED AT [address] (test sxut=3926) [place] [address] POCT-GLUCOSE [id number] 12:12:00 Test Item Value Reference Range Comments POC-GLUCOSE METER (BEAKER) 326 mg/dL 70-110 TESTED AT [address] (test pdhc=1957) [place] [address] POCT-GLUCOSE [id number] 08:50:00 Test Item Value Reference Range Comments POC-GLUCOSE METER (BEAKER) 153 mg/dL 70-110 TESTED AT [address] (test hyoh=6369) [facility] [address] [id number] 07:11:00 Test Item Value Reference Range Comments RPR SCREEN (BEAKER) (test hdbq=781) Nonreactive Nonreactive POCT-GLUCOSE [id number] 21:31:00 Test Item Value Reference Range Comments POC-GLUCOSE METER (BEAKER) 306 mg/dL 70-110 Notified MARCE REBOLLAR/TESTED AT [facility] (test ncoe=6122) [address] [place] [address] POCT-GLUCOSE [id number] 17:42:00 Test Item Value Reference Range Comments POC-GLUCOSE METER (BEAKER) 395 mg/dL 70-110 TESTED AT [address] (test tlhs=6547) [place] [address] EEG AWAKE AND [id number] 16:15:00Reason for exam:->SeizuresDate(s) of EE09/03/17DATE OF REPORT: 09/03/17MRN: [id number]: [id number] Number: [id number] Location: Inpatient RoomStart time: 14:30Stop time: 14:51ICD-10: R56.9CPT Code: 87755 HISTORY: Mr. Powers is a RH 71 y.o. 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 on 09/03 for further evaluation of seizure-like [...] additional EEG recordings. Elisa Jordan MDNeurophysiology Fellow, [id number] note: I personally reviewed this EEG record in its entirety and I agree with the details of this report. Martha Pace MD Clinical Neurophysiology/Epilepsy Attending URINALYSIS W/ REFLEX URINE [id number] 11:56:00 Test Item Value Reference Range Comments COLOR (BEAKER) (test agxc=093) Light Yellow CLARITY (BEAKER) (test rrnp=077) Clear SPECIFIC GRAVITY UA (BEAKER) (test gnel=386) 1.005 1.001-1.035 PH UA (BEAKER) (test mgof=454) 5.0 5.0-8.0 PROTEIN UA (BEAKER) (test yrle=863) Negative Negative GLUCOSE UA (BEAKER) (test wdrp=994) 300 mg/dL Negative KETONES UA (BEAKER) (test gwis=968) Trace Negative BILIRUBIN UA (BEAKER) (test lyio=955) Negative Negative BLOOD UA (BEAKER) (test sdsl=847) Negative Negative NITRITE UA (BEAKER) (test tdtz=594) Negative Negative LEUKOCYTE ESTERASE UA (BEAKER) (test effj=166) Negative Negative UROBILINOGEN UA (BEAKER) (test xwfi=319) 0.2 mg/dL 0.2-1.0 RBC UA (BEAKER) (test vkwu=990) < /HPF WBC UA (BEAKER) (test olvk=708) 0 /HPF MUCUS (BEAKER) (test vpib=9015) Rare SOURCE(BEAKER) (test vemp=2939) SEDIMENTATION [id number] 11:22:00 Test Item Value Reference Range Comments SEDIMENTATION RATE, ERYTHROCYTE (BEAKER) (test 86 mm/HR 0-40 cyrn=661) HEMOGLOBIN [id number] 10:37:00 Test Item Value Reference Range Comments HEMOGLOBIN A1C (BEAKER) (test orpt=855) 10.1 % 4.3-6.1 FastingVITAMIN [id number] 09:09:00 Test Item Value Reference Range Comments VITAMIN B12 (BEAKER) (test dkmq=234) 717 pg/mL 213-816 [id number] 08:49:00 Test Item Value Reference Range Comments HOMOCYSTEINE (BEAKER) (test dugk=841) 14.8 umol/L 5.1-15.4 FastingPOCT-GLUCOSE [id number] 08:39:00 Test Item Value Reference Range Comments POC-GLUCOSE METER (BEAKER) 329 mg/dL 70-110 Notified MARCE REBOLLAR/TESTED AT [facility] (test jixs=4680) [address] [facility] [address] TSH/FREE T4 IF [id number] 07:33:00 Test Item Value Reference Range Comments THYROID STIMULATING HORMONE (BEAKER) (test 0.49 uIU/mL 0.35-4.94 eerh=651) FastingHIV-1 ANTIGEN WITH HIV-1/2 [id number] 07:28:00 Test Item Value Reference Range Comments HIV-1 ANTIGEN WITH HIV 1\T\2 ANTIBODY (2) Nonreactive Nonreactive (BEAKER) (test cnsm=5903) C-REACTIVE [id number] 07:08:00 Test Item Value Reference Range Comments C-REACTIVE PROTEIN (BEAKER) (test kaex=768) 0.68 mg/dL 0.00-0.50 LIPID [id number] 07:08:00 Test Item Value Reference Range Comments TRIGLYCERIDES (BEAKER) (test pquh=955) 155 mg/dL CHOLESTEROL (BEAKER) (test znko=216) 155 mg/dL HDL CHOLESTEROL (BEAKER) (test uxsw=601) 35 mg/dL LDL CHOLESTEROL CALCULATED (BEAKER) (test 89 mg/dL gzkg=425) Triglyceride Reference Range: Low Risk <150 Borderline 150- 199 High Risk 200-499 Very High Risk >=500Cholesterol Reference Range: Low Risk <200 Borderline 200-239 High Risk > 240HDL Cholesterol Reference Range: Low Risk >=60 High Risk <40LDL Cholesterol Reference Range: Optimal <100 Near Optimal 100-129 Borderline 130-159 High 160-189 Very High >=190 FastingBASIC METABOLIC [id number] 07:08:00 Test Item Value Reference Range Comments SODIUM (BEAKER) (test 137 meq/L 136-145 jepg=236) POTASSIUM (BEAKER) (test 4.2 meq/L 3.5-5.1 leob=906) CHLORIDE (BEAKER) (test 103 meq/L 98-107 nhza=041) CO2 (BEAKER) (test 23 meq/L 22-29 mvzq=997) BLOOD UREA NITROGEN 34 mg/dL 7-21 (BEAKER) (test xxtq=581) CREATININE (BEAKER) (test 1.78 mg/dL 0.57-1.25 xaez=120) GLUCOSE RANDOM (BEAKER) 336 mg/dL 70-105 (test nauz=349) CALCIUM (BEAKER) (test 9.4 mg/dL 8.4-10.2 wxhn=905) EGFR (BEAKER) (test 38 mL/min/1.73 sq m ESTIMATED GFR IS NOT jvsi=6443) ACCURATE CREATININE CLEARANCE IN PREDICTING GLOMERULAR FILTRATION RATE. ESTIMATED GFR IS NOT APPLICABLE FOR DIALYSIS PATIENTS. FastingHEPATIC FUNCTION [id number] 07:08:00 Test Item Value Reference Range Comments TOTAL PROTEIN (BEAKER) (test sezb=237) 7.0 gm/dL 6.0-8.3 ALBUMIN (BEAKER) (test casj=9072) 4.0 g/dL 3.5-5.0 BILIRUBIN TOTAL (BEAKER) (test zply=633) 0.5 mg/dL 0.2-1.2 BILIRUBIN DIRECT (BEAKER) (test zbap=341) 0.2 mg/dL 0.1-0.5 ALKALINE PHOSPHATASE (BEAKER) (test utxu=683) 77 U/L 40-150 AST (SGOT) (BEAKER) (test qbun=473) 12 U/L 5-34 ALT (SGPT) (BEAKER) (test uihj=234) 12 U/L 6-55 FastingLIPID [id number] 07:06:00 Test Item Value Reference Range Comments TRIGLYCERIDES (BEAKER) (test soen=963) 160 mg/dL CHOLESTEROL (BEAKER) (test lxad=536) 159 mg/dL HDL CHOLESTEROL (BEAKER) (test fkyj=974) 37 mg/dL LDL CHOLESTEROL CALCULATED (BEAKER) (test 90 mg/dL ihvd=266) Triglyceride Reference Range: Low Risk <150 Borderline 150- 199 High Risk 200-499 Very High Risk >=500Cholesterol Reference Range: Low Risk <200 Borderline 200-239 High Risk > 240HDL Cholesterol Reference Range: Low Risk >=60 High Risk <40LDL Cholesterol Reference Range: Optimal <100 Near Optimal 100-129 Borderline 130-159 High 160-189 Very High >=[id number] 06:55:00 Test Item Value Reference Range Comments AMMONIA (BEAKER) (test qffm=025) 13 mol/L 18-72 PROTHROMBIN [id number] 06:33:00 Test Item Value Reference Range Comments PROTIME (BEAKER) (test mufi=379) 16.5 seconds 11.7-14.7 INR (BEAKER) (test bpct=848) 1.3 <=5.9 RECOMMENDED COUMADIN/WARFARIN INR THERAPY RANGESSTANDARD DOSE: 2.0 - 3.0 Includes: PROPHYLAXIS forvenous thrombosis, systemic embolization; TREATMENT for venous thrombosis and/or pulmonary embolus.HIGH RISK: Target INR is 2.5-3.5 for patients with mechanical heart valves.CBC W/PLT COUNT & AUTO [id number] 06:21:00 Test Item Value Reference Range Comments WHITE BLOOD CELL COUNT (BEAKER) (test qiqd=050) 8.8 K/ L 3.5-10.5 RED BLOOD CELL COUNT (BEAKER) (test wuqo=016) 4.13 M/ L 4.63-6.08 HEMOGLOBIN (BEAKER) (test nmgy=103) 11.8 GM/DL 13.7-17.5 HEMATOCRIT (BEAKER) (test btrl=093) 34.7 % 40.1-51.0 MEAN CORPUSCULAR VOLUME (BEAKER) (test hufd=268) 84.0 fL 79.0-92.2 MEAN CORPUSCULAR HEMOGLOBIN (BEAKER) (test 28.6 pg 25.7-32.2 zrel=717) MEAN CORPUSCULAR HEMOGLOBIN CONC (BEAKER) (test 34.0 GM/DL 32.3-36.5 lzjo=298) RED CELL DISTRIBUTION WIDTH (BEAKER) (test 13.0 % 11.6-14.4 pkke=213) PLATELET COUNT (BEAKER) (test xzvy=647) 203 K/CU MM 150-450 MEAN PLATELET VOLUME (BEAKER) (test vpdg=826) 9.5 fL 9.4-12.4 NUCLEATED RED BLOOD CELLS (BEAKER) (test 0 /100 WBC 0-0 ykqr=246) NEUTROPHILS RELATIVE PERCENT (BEAKER) (test 77 % gvgn=870) LYMPHOCYTES RELATIVE PERCENT (BEAKER) (test 15 % swyg=283) MONOCYTES RELATIVE PERCENT (BEAKER) (test 7 % vinp=989) EOSINOPHILS RELATIVE PERCENT (BEAKER) (test 0 % opss=598) BASOPHILS RELATIVE PERCENT (BEAKER) (test 1 % asls=814) NEUTROPHILS ABSOLUTE COUNT (BEAKER) (test 6.73 K/ L 1.78-5.38 wgpp=492) LYMPHOCYTES ABSOLUTE COUNT (BEAKER) (test 1.28 K/ L 1.32-3.57 zzmq=900) MONOCYTES ABSOLUTE COUNT (BEAKER) (test 0.59 K/ L 0.30-0.82 qfcb=999) EOSINOPHILS ABSOLUTE COUNT (BEAKER) (test 0.00 K/ L 0.04-0.54 xacx=364) BASOPHILS ABSOLUTE COUNT (BEAKER) (test 0.07 K/ L 0.01-0.08 iozn=955) IMMATURE GRANULOCYTES-RELATIVE PERCENT (BEAKER) 1 % 0-1 (test semi=0657)
--- OUTSIDE RECORDS SUMMARY | 2018-08-12 19:49 | XMS REPORT | Clinical Summary ---
:1945 Author Organization [facility] [employer] Address [address] [place] [address] Care Team Providers Name Role Phone Unavailable [...] TWIST LANCET) 28 gauge [facility] blood sugar Use as directed. 30 strip [...] with long- term current use of insulin ([facility]) 09/03/2017 Orders Only General Internal [...] 400 ms QTC Calculation(Bazett) 467 ms P Buena 45 degrees R Buena 61 degrees T Buena 91 degrees Normal sinus rhythm ST & [...] 321 (H)Comment: Notified 70 - 110 mg/dL [facility] RN /TESTED AT [address] [address] Specimen Blood Performing Organization Address [facility]/Zipcode Phone Number [address] [phone] [place] CSF culture + gram stain (09/05/2017 2:32 PM CDT) Result No growth [facility] Gram Stain Result No WBCs [facility] Gram Stain Result No organisms seen [facility] Specimen Cerebrospinal Fluid - CSF, tube 1 Performing Organization Address [facility] Phone Number [address] [phone] [place] Cryptococcal antigen, CSF (09/05/2017 2:31 PM CDT) Cryptococcal Antigen, CSF Negative Negative, Interference [facility] Specimen Cerebrospinal Fluid - CSF Performing Organization Address [facility] Phone Number [address] [phone] [place] CSF cell count with differential (09/05/2017 2:31 PM CDT) Appearance Clear Clear [facility] Color Colorless Colorless [facility] RBCs 7 (H) 0 - 5 /cu mm [facility] WBCs 0 <=5 /cu mm [facility] RBCs Fresh? 100% Fresh [facility] # of Cells Diff'd 0 [facility] Tube Number 1 [facility] Specimen Cerebrospinal Fluid - CSF Performing Organization Address City/[facility]/Zipcode Phone Number [address] [phone] [place] West Nile Virus, CSF, IgG and IgM [...] by other flavivirus infections (e.g. Dengue virus, [place] encephalitis virus) may show cross-reactivity with WNV. Specimen Cerebrospinal Fluid - CSF Narrative Performed At Performing Lab [facility] *[facility] [address] [place] [phone] Chanel Bob MD Performing Organization Address City/[facility] Phone Number [place] [address] [place] [address] VDRL, CSF (09/05/2017 2:31 PM CDT) VDRL, CSF NON-REACTIVE Nonreactive [facility] Specimen Cerebrospinal Fluid - CSF Performing Organization Address City/[facility]/Zipcode Phone Number [address] [address] [phone] [place] Protein, CSF (09/05/2017 2:31 PM CDT) Protein, CSF 73 (H) 15 - 45 mg/dL [facility] Specimen Cerebrospinal Fluid - CSF Performing Organization Address City/[facility]/Zipcode Phone Number [address] [phone] CENTER Glucose, CSF (09/05/2017 2:31 PM CDT) Glucose, CSF 165 (H) 40 - 70 mg/dL [facility] Specimen Cerebrospinal Fluid - CSF Performing Organization Address City/State/Zipcode Phone Number [facility] [address] [place] [address] CENTER Varicella zoster PCR, qualitative (09/05/2017 2:30 PM CDT) Source-Body Site CEREBROSPINAL FLUID [facility] VZV DNA,Qual.PCR NOT DETECTED [facility] Comment: INCORPORATED REFERENCE RANGE: NOT DETECTED This test was developed and its analytical performance characteristics have been determined by [facility]. It has not been cleared or approved by FDA. This assay has been validated pursuant to the CLIA regulations and is used for clinical purposes. Specimen Cerebrospinal Fluid - CSF Narrative Performed At Performing Lab [facility] *QDID [facility] [address] [place] [phone] Chanel Bob MD Performing Organization Address City/[facility]/Zipcode Phone Number [place] [address] INCORPORATED [address] [facility] CMV PCR Quantitative (09/05/2017 2:30 PM CDT)Only the most recent of2 resultswithin the time period is included. Scan Result [facility] Specimen Cerebrospinal Fluid Narrative Performed At Performing Organization Address City/State/[facility] Phone Number [facility] [address] [place] [address] HSV 1/2 PCR, Qualitative (09/05/2017 2:30 PM CDT) HSV, PCR NEGATIVE NEGATIVE [facility] Specimen Cerebrospinal Fluid - CSF Narrative Performed At Herpes Simplex Virus (HSV) not detected. [facility] These assays were performed by real-time PCR [...] and its performance characteristics determined by the [facility] Pathology Department, Section of Molecular Pathology.It has not been cleared or approved by the U.S. Food and Drug Administration (FDA), as FDA approval is not required for clinical use of the test.Validation was done as required by the Clinical Laboratory Amendments of 1988. Performing Organization Address City/State/Zipcode Phone Number [facility] [address] [place] [address] CENTER MR brain without IV contrast (09/04/2017 8:10 PM CDT) Narrative Performed At FINAL REPORT [email or web address] MRI brain Comparison: None Reason for exam: [...] 21:09:29 Performing Organization Address City/State/Zipcode Phone Number [email or web address] MRA neck without IV contrast (09/04/2017 8:10 PM CDT) Narrative Performed At FINAL REPORT [email or web address] MRA head and neck Comparison: None Reason for exam:Encephalopathy Discussion: 2 D and 3-D [id number] MRA of the head and neck was [...] exam: Encephalopathy Discussion: 2 D and 3-D [id number]-[id number] MRA of the head and neck was [...] Performing Organization Address City/State/Zipcode Phone Number [facility] MRA head without IV contrast (09/04/2017 8:10 PM CDT) Narrative Performed At FINAL REPORT [facility] MRA head and neck Comparison: None Reason for exam:Encephalopathy Discussion: 2 D and 3-D uuoi-sv-[id number] MRA of the head and neck was [...] exam: Encephalopathy Discussion: 2 D and 3-D brgb-el-[id number] MRA of the head and neck was [...] Verified Date/Time: 09/04/2017 21:12:06 Performing Organization Address City/State/[facility] Phone Number GE RIS ECG 12 lead (09/03/2017 9:01 PM CDT) Narrative Performed At Ventricular Rate 82 BPM [facility] MUSE Atrial Rate 82 BPM P-R Interval 134 ms QRS Duration 78 ms Q-T Interval 400 ms QTC Calculation(Bazett) 467 ms P Buena 45 degrees R Buena 61 degrees T Buena 91 degrees Baseline artifact Normal sinus rhythm [...] 400 ms QTC Calculation(Bazett) 467 ms P Buena 45 degrees R Buena 61 degrees T Buena 91 degrees Baseline artifact Normal sinus rhythm ST & T wave abnormality, consider anterolateral ischemia Prolonged QT Abnormal ECG No previous ECGs available Confirmed by MD MENDES YOCHAI ([id number]) on 09/05/2017 7:11:02 AM Performing Organization Address City/[facility] Phone Number GE MUSE Thyroid peroxidase (TPO) antibody (09/03/2017 6:47 PM CDT) Thyroid Peroxidase Ab 4 <9 IU/mL [facility] Specimen Blood Narrative Performed At Performing Lab [facility] EZ [facility] [address] [address] Lex Mcneill MD, PhD, [place] Performing Organization Address City/[facility] Phone Number [place] [address] [place] [address] [place] Titer & Pattern (09/03/2017 6:47 PM CDT) [place] Titer 1:40 [facility] [place] Pattern Speckled [facility] Specimen Blood Performing Organization Address [facility] Phone Number [address] [address] [place] Anti-Nuclear Antibody ([place]) (09/03/2017 6:47 PM CDT) [place] Positive (A) Negative [facility] Specimen Blood Performing Organization Address [facility] Phone Number [address] [address] CENTER EEG AWAKE AND DROWSY (09/03/2017 2:51 PM CDT) Narrative Performed At Date(s) of EE09/03/17 GE [facility] DATE OF REPORT: 09/03/17 ACC: [id number] EEG Number: [id number] Test Location: Inpatient Room Start time: 14:30 Stop time: 14:51 ICD-10: R56.9 CPT Code: 18491 HISTORY: Mr. Petty is a RH 71 y.o. w/ IDDM, HTN, CAD c/b prior MIBPH s/p photoselective vaporization, and prior prostate CA s/p XRT (last completed in early 2016); he was transferred to [facility] on 09/03 for further evaluation of seizure-like episodes in the setting of cognitive decline and generalized weakness MEDICATIONS THAT COULD AFFECT EEG: None TECHNICAL SUMMARY: This is a digital video-EEG recorded with 32 input channels reviewed with bipolar and referential montages using the modified rateGenius system nomenclature. DESCRIPTION OF RECORD: During the [...] of EE09/03/17 DATE OF REPORT: 09/03/17 ACC: [id number] EEG Number: [id number] Test Location: Inpatient Room Start time: 14:30 Stop time: 14:51 ICD-10: R56.9 CPT Code: 43266 HISTORY: Mr. Petty is a RH 71 y.o. w/ IDDM, HTN, CAD c/b prior MIBPH s/p photoselective vaporization, and prior prostate CA s/p XRT (last completed in early 2016); he was transferred to [facility] on 09/03 for further evaluation of seizure-like episodes in the setting of cognitive decline and generalized weakness MEDICATIONS THAT COULD AFFECT EEG: None TECHNICAL SUMMARY: This is a digital video-EEG recorded with 32 input channels reviewed with bipolar and referential montages using the modified rateGenius system nomenclature. DESCRIPTION OF RECORD: During the [...] 11:18 AM CDT) Color, UA Light Yellow [facility] Clarity, UA Clear [facility] Specific [place], UA 1.005 1.001 - 1.035 [facility] pH, UA 5.0 5.0 - 8.0 [facility] Protein, UA Negative Negative [facility] Glucose, UA 300 mg/dL (A) Negative [facility] Ketones, UA Trace (A) Negative [facility] Bilirubin, UA Negative Negative [facility] Blood, UA Negative Negative [facility] Nitrite, UA Negative Negative [facility] Leukocytes, UA Negative Negative [facility] Urobilinogen, UA 0.2 0.2 - 1.0 mg/dL [facility] RBC, UA <1 /HPF [facility] WBC, UA 0 /HPF [facility] Mucus Rare [facility] Specimen Source [facility] Specimen Urine - Urine, Clean Catch Performing Organization Address [facility] Phone Number [address] [address] [place] TSH/Free T4 If Indicated (09/03/2017 5:53 AM CDT) TSH 0.49 0.35 - 4.94 uIU/mL [facility] Specimen Blood Narrative Performed At Fasting [facility] Performing Organization Address [facility] Phone Number [address] [address] [place] HIV-1 Antigen with HIV-1/2 Antibody (09/03/2017 5:53 AM CDT) HIV-1 Antigen with HIV 1&2 NON-REACTIVE Nonreactive [facility] Specimen Blood Performing Organization Address [facility] Phone Number [address] [address] [phone] [place] C-Reactive Protein (09/03/2017 5:53 AM CDT) CRP 0.68 (H) 0.00 - 0.50 mg/dL [facility] Specimen Blood Performing Organization Address [facility] Phone Number [address] [address] [place] CBC with platelet count + automated diff (09/03/2017 5:53 AM CDT) WBC 8.8 3.5 - 10.5 K/L [facility] RBC 4.13 (L) 4.63 - 6.08 M/L [facility] Hemoglobin 11.8 (L) 13.7 - 17.5 GM/DL [facility] Hematocrit 34.7 (L) 40.1 - 51.0 % [facility] MCV 84.0 79.0 - 92.2 fL [facility] MCH 28.6 25.7 - 32.2 pg [facility] MCHC 34.0 32.3 - 36.5 GM/DL [facility] RDW 13.0 11.6 - 14.4 % [facility] Platelets 203 150 - 450 K/CU MM [facility] MPV 9.5 9.4 - 12.4 fL [facility] nRBC 0 0 - 0 /100 WBC [facility] % Neutros 77 % [facility] % Lymphs 15 % [facility] % Monos 7 % [facility] % Eos 0 % [facility] % Baso 1 % [facility] # Neutros 6.73 (H) 1.78 - 5.38 K/L [facility] # Lymphs 1.28 (L) 1.32 - 3.57 K/L [facility] # Monos 0.59 0.30 - 0.82 K/L [facility] # Eos 0.00 (L) 0.04 - 0.54 K/L [facility] # Baso 0.07 0.01 - 0.08 K/L [facility] Immature Granulocytes-Relative 1 0 - 1 % [facility] Specimen Blood Performing Organization Address City/State/Zipcode Phone Number [facility] [address] [place] [address] [phone] CENTER RPR (09/03/2017 5:53 AM CDT) RPR Nonreactive Nonreactive [facility] Specimen Blood Performing Organization Address City/State/Zipcode Phone Number [address] [address] CENTER Sedimentation rate (09/03/2017 5:53 AM CDT) Sed Rate 86 (H) 0 - 40 mm/HR [facility] Specimen Blood Performing Organization Address City/[facility]/Zipcode Phone Number [address] [address] CENTER Prothrombin time/INR (09/03/2017 5:53 AM CDT) Protime 16.5 (H) 11.7 - 14.7 seconds [facility] INR 1.3 <=5.9 [facility] Specimen Blood Narrative Performed At [facility] RECOMMENDED COUMADIN/WARFARIN INR THERAPY RANGES STANDARD DOSE: 2.0 - 3.0 Includes: PROPHYLAXIS for venous thrombosis, systemic embolization; TREATMENT for venous thrombosis and/or pulmonary embolus. HIGH RISK: Target INR is 2.5-3.5 for patients with mechanical heart valves. Performing Organization Address City/State/Zipcode Phone Number [address] [address] [phone] C[place] Homocysteine - Fasting (09/03/2017 5:53 AM CDT) Homocysteine 14.8 5.1 - 15.4 umol/L [facility] Specimen Blood Narrative Performed At Fasting [facility] Performing Organization Address City/State/Zipcode Phone Number [address] [address] [phone] CENTER Hemoglobin A1c - Fasting (09/03/2017 5:53 AM CDT) Hemoglobin A1C 10.1 (H) 4.3 - 6.1 % [facility] Specimen Blood Narrative Performed At Fasting [facility] Performing Organization Address City/[facility] Phone Number [address] [address] C[place] Vitamin B12 (09/03/2017 5:53 AM CDT) Vitamin B12 717 213 - 816 pg/mL [facility] Specimen Blood Performing Organization Address City/[facility] Phone Number [address] [address] CENTER Ammonia (09/03/2017 5:53 AM CDT) Ammonia 13 (L) 18 - 72 mol/L [facility] Specimen Blood Performing Organization Address [facility] Phone Number [address] [address] [phone] [place] Hepatic function panel (09/03/2017 5:53 AM CDT) Protein, Total 7.0 6.0 - 8.3 gm/dL [facility] Albumin 4.0 3.5 - 5.0 g/dL [facility] Total Bilirubin 0.5 0.2 - 1.2 mg/dL [facility] Bilirubin, Direct 0.2 0.1 - 0.5 mg/dL [facility] Alkaline Phosphatase 77 40 - 150 U/L [facility] AST 12 5 - 34 U/L [facility] ALT 12 6 - 55 U/L [facility] Specimen Blood Narrative Performed At Fasting [facility] Performing Organization Address [facility] Phone Number [address] [address] CENTER Lipid panel (09/03/2017 5:53 AM CDT)Only the most recent of2 resultswithin the time period is included. Triglycerides 160 mg/dL [facility] Cholesterol 159 mg/dL [facility] HDL 37 mg/dL [facility] LDL Calculated 90 mg/dL [facility] Specimen Blood Narrative Performed At [facility] Triglyceride Reference Range: Low Risk <150 [id number] High Risk 200-499 Very High Risk>=500 Cholesterol Reference Range: Low Risk <200 [id number] High Risk>240 HDL Cholesterol Reference Range: Low Risk >=60 High Risk <40 LDL Cholesterol Reference Range: Optimal<100 Near [id number] Very High >=190 Performing Organization Address [facility] Phone Number [address] [address] [phone] CENTER Basic Metabolic Panel (09/03/2017 5:53 AM CDT) Sodium 137 136 - 145 meq/L [facility] Potassium 4.2 3.5 - 5.1 meq/L [facility] Chloride 103 98 - 107 meq/L [facility] CO2 23 22 - 29 meq/L [facility] BUN 34 (H) 7 - 21 mg/dL [facility] Creatinine 1.78 (H) 0.57 - 1.25 mg/dL [facility] Glucose 336 (H) 70 - 105 mg/dL [facility] Calcium 9.4 8.4 - 10.2 mg/dL [facility] EGFR 38Comment: ESTIMATED GFR IS mL/min/1.73 sq m [facility] NOT ACCURATE [facility] CLE[facility] IN PREDICTING GLOMERULAR FILTRATION RATE. ESTIMATED GFR IS NOT APPLICABLE FOR DIALYSIS PATIENTS. Specimen Blood Narrative Performed At Fasting [facility] Performing Organization Address City/State/Zipcode Phone Number [facility] [address] [place] [address] CENTER after 08/11/2017 Insurance Payer Benefit Plan / Group Subscriber ID Type Phone Address MEDICARE MEDICARE A B xxxxxxxxxx Medicare MCR SUPPLEMENT/INDIVIDUAL AARP/[facility] xxxxxxxxxxx [facility] Advance Directives For more information, please contact:[address] [phone] Code Status Date Activated Date Inactivated Comments Full Code 09/03/2017 3:06 AM 09/06/2017 6:11 PM This code status was determined by: Patient
[2018-08-12 20:27] LABS: Absolute Lymphocytes (CBC) 1.3 K/uL (0.7-4.9); Absolute Monocytes 0.5 K/uL (0.1-1.3); Absolute Neutrophil 4.5 K/uL (1.8-8.0); Basophils % 0.8 % (0-1.3); Eosinophils % 1.2 % (0-4.4); Lymphocytes % 20.6 % (15.3-44.8); MPV 7.7 fL (7.6-11.3); RBC Red Blood Cell Count 4.23 M/uL (4.33-5.43)
[2018-08-12] MEDS ORDERED: INSULIN -REGULAR HUMAN 50 UNIT/0.5 ML ML ONE (20:34)
[2018-08-12 20:54] LABS: Albumin 3.7 g/dL (3.4-5.0); Bilirubin Total 0.4 mg/dL (0.2-1.0); Potassium 4.2 mmol/L (3.5-5.1); Protein, Total 7.3 g/dL (6.4-8.2)
--- NOTE | 2018-08-12 21:09 | ER ---
Nurse's Notes [facility] Name: Agustin Petty Sr Age: 72 yrs Sex: Male : 1945 Arrival Date: 08/12/2018 Time: 19:49 Bed 17 Private MD: Michael Madrid Diagnosis: Hyperglycemia, unspecified;Dementia in other diseases classified elsewhere Presentation: 08/12 20:02 Presenting complaint: Child states: pt seen in ER this morning with high blood sugars. ak1 pt left AMA to sit with his who has upstairs. pt FSBG reads HIGH on his home meter. pt is noncompliant with medications as home per family. Transition of care: patient was not received from another setting of care. Onset of symptoms was August 12, 2018. Risk Assessment: Do you want to hurt yourself or someone else? Patient reports no desire to harm self or others. Initial Sepsis Screen: Does the patient meet any 2 criteria? No. Patient's initial sepsis screen is negative. Does the patient have a suspected source of infection? No. Patient's initial sepsis screen is negative. Care prior to arrival: None. 20:02 Method Of Arrival: Wheelchair ak1 20:02 Acuity: ALVIN 2 ak1 Triage Assessment: 20:05 General: Appears ill, slender, Behavior is agitated, quiet. ak1 Historical: - Allergies: 20:05 No Known Allergies; ak1 - Home Meds: 20:05 aspirin 81 mg Oral chew 1 tab once daily [Active]; Tresiba FlexTouch U-100 30units ak1 subcutaneous inpn [Active]; Vitamin C 1,000 mg Oral tab [Active]; alendronate 70 mg/75 mL Oral soln 75 mL once wkly [Active]; Iron CR 65mg Oral [Active]; metformin 1,000 mg Oral TG24 1 tab 2 times per day [Active]; lisinopril 20 mg Oral tab 1 tab once daily [Active]; Januvia 50 mg Oral tab 1 tabs once daily [Active]; rosuvastatin 20 mg Oral tab 1 tab once daily [Active]; multivitamin Oral [Active]; glimepiride 4 mg Oral tab 1 tab once daily [Active]; - PMHx: 20:05 Diabetes - NIDDM; Hyperlipidemia; Hypertension; ak1 - Immunization history:: Adult Immunizations unknown. - Social history:: Smoking status: Patient/guardian denies using tobacco. - Ebola Screening: : No symptoms or risks identified at this time. Screenin:06 Abuse screen: Denies threats or abuse. Denies injuries from another. Nutritional ak1 screening: No deficits noted. Tuberculosis screening: No symptoms or risk factors identified. Fall Risk Ambulatory Aid- Crutches/Cane/Walker (15 pts). Assessment: 20:05 General: Appears in no apparent distress. Behavior is uncooperative. Pain: Denies pain. ed1 Neuro: Level of Consciousness is awake, alert, obeys commands, Oriented to person, situation, Family states that patient is becoming more and more forgetful. Cardiovascular: Denies chest pain, Heart tones S1 S2 present. Respiratory: Airway is patent Respiratory effort is even, unlabored, Respiratory pattern is regular, symmetrical, Breath sounds are clear bilaterally. GI: Patient currently denies diarrhea, nausea, vomiting. : Denies urinary frequency. EENT: Oral mucosa is moist. Derm: Skin is intact, is healthy with good turgor, Skin is dry, Skin is normal, Skin temperature is warm. Musculoskeletal: Circulation, motion, and sensation intact. Range of motion: intact in all extremities. 22:26 Reassessment: Patient appears in no apparent distress at this time. Patient and/or ed1 family updated on plan of care and expected duration. Pain level reassessed. Patient denies pain at this time. Neuro: Level of Consciousness is awake, alert, obeys commands, Oriented to person, situation. Vital Signs: 20:05 BP 150 / 94; Pulse 68; Resp 20; Temp 98.1(O); Pulse Ox 100% on R/A; Weight 74.84 kg ak1 (R); Height 5 ft. 7 in. (170.18 cm) (R); Pain 0/10; 22:26 BP 156 / 84; Pulse 70; Resp 17; Pulse Ox 100% on R/A; Pain 0/10; ed1 20:05 Body Mass Index 25.84 (74.84 kg, 170.18 cm) [facility] Course: 19:49 Patient arrived in ED. am2 19:49 Michael Madrid MD is Private Physician. am2 19:51 Zapata, Heidy, RN is Primary Nurse. ed1 19:51 Augustine Vidal MD is Attending Physician. ps1 20:03 Triage completed. ak1 20:05 Arm band placed on Patient placed in an exam room, on a stretcher, Patient notified of ak1 wait time. 20:05 Patient has correct armband on for positive identification. Bed in low position. Call ed1 light in reach. Side rails up X2. Adult w/ patient. 20:25 Inserted saline lock: 22 gauge in right antecubital area, using aseptic technique. mt Blood collected. 21:01 Notified ED physician of a critical lab result(s). Glucose 514. ed1 21:07 Michael Madrid MD is Referral Physician. ps1 21:08 Awaiting: Completion of IV fluids and BGL recheck to be less than 400. ed1 22:26 No provider procedures requiring assistance completed. IV discontinued, intact, ed1 bleeding controlled, No redness/swelling at site. Pressure dressing applied. Administered Medications: 20:30 Not Given (Other Intervention Used): Insulin Aspart 10 units Sub-Q once ed1 20:31 Drug: Insulin Regular Human 10 units {Co-Signature: ao (David Serrano RN).} {Note: BGL ed1 481.} Route: Sub-Q; Site: right lower abdomen; 21:18 Follow up: Response: No adverse reaction; Blood sugar is lowered ed1 21:18 Drug: metFORMIN 1000 mg Route: PO; ed1 22:28 Follow up: Response: No adverse reaction; Blood sugar is lowered ed1 21:21 Drug: NS 0.9% 1000 ml Route: IV; Rate: 1 bolus; Site: right antecubital; ed1 22:28 Follow up: IV Status: Completed infusion; IV Intake: 1000ml ed1 Point of Care Testing: Blood Glucose: 20:19 Blood Glucose: 481 mg/dL; ak1 22:18 Blood Glucose: 335 mg/dL; ed1 Ranges: Intake: 22:28 IV: 1000ml; Total: 1000ml. ed1 Outcome: 21:08 Discharge ordered by . ps1 22:26 Discharged to home via wheelchair, with family. ed1 22:26 Condition: good 22:26 Discharge instructions given to patient, family, Instructed on discharge instructions, follow up and referral plans. Demonstrated understanding of instructions, follow-up care. 22:29 Patient left the ED. ed1 Signatures: Heidy Zapata RN RN ed1 Reina Davila RN RN ak1 Abby Weiner am2 Laya Armstrong mt, Phillip, MD MD ps1 David mccullough
--- NOTE | 2018-08-12 21:09 | EDPHYS ---
Physician Documentation [facility] Name: Agustin Petty Sr Age: 72 yrs Sex: Male : 1945 Arrival Date: 08/12/2018 Time: 19:49 Bed 17 Private MD: Michael Madrid ED Physician Augustine Vidal HPI: 08/12 20:39 This 72 yrs old Male presents to ER via Wheelchair with complaints of High ps1 Blood Sugar. 20:39 patient has history of progressive dementia and IDDM. Not taking medications as ps1 prescribed. Came to ED earlier in day but refused treatment because is hospitalized and he wanted to be with her. Son is now DPOA and patient does not have reasonable decision making skills as demonstrated by confabulating that his son gave him his medications earlier (son denied). BS checked and then read high and then 480\R\s. Historical: - Allergies: 20:05 No Known Allergies; ak1 - Home Meds: 20:05 aspirin 81 mg Oral chew 1 tab once daily [Active]; Tresiba FlexTouch U-100 30units ak1 subcutaneous inpn [Active]; Vitamin C 1,000 mg Oral tab [Active]; alendronate 70 mg/75 mL Oral soln 75 mL once wkly [Active]; Iron CR 65mg Oral [Active]; metformin 1,000 mg Oral TG24 1 tab 2 times per day [Active]; lisinopril 20 mg Oral tab 1 tab once daily [Active]; Januvia 50 mg Oral tab 1 tabs once daily [Active]; rosuvastatin 20 mg Oral tab 1 tab once daily [Active]; multivitamin Oral [Active]; glimepiride 4 mg Oral tab 1 tab once daily [Active]; - PMHx: 20:05 Diabetes - NIDDM; Hyperlipidemia; Hypertension; ak1 - Immunization history:: Adult Immunizations unknown. - Social history:: Smoking status: Patient/guardian denies using tobacco. - Ebola Screening: : No symptoms or risks identified at this time. ROS: 20:39 Unable to obtain ROS due to baseline dementia. ps1 Exam: 20:39 Constitutional: This is a well developed, well nourished patient who is awake, alert, ps1 and in no acute distress. Head/Face: Normocephalic, atraumatic. Chest/axilla: Normal chest wall appearance and motion. Nontender with no deformity. No lesions are appreciated. Cardiovascular: Regular rate and rhythm. No gallops, murmurs, or rubs. Normal PMI, no JVD. No pulse deficits. Respiratory: Lungs have equal breath sounds bilaterally, clear to auscultation and percussion. No rales, rhonchi or wheezes noted. No increased work of breathing, no retractions or nasal flaring. Abdomen/GI: Soft, non-tender, with normal bowel sounds. No distension or tympany. No guarding or rebound. No evidence of tenderness throughout. MS/ Extremity: Pulses equal, no cyanosis. Neurovascular intact. Full, normal range of motion. Psych: Awake, alert, with orientation to person, place and time. Behavior, mood, and affect are within normal limits. 20:39 Neuro: Orientation: is normal, to person, place \T\ time. Mentation: is normal, Memory: immediate memory is impaired, remote memory is impaired, recent memory is impaired. Vital Signs: 20:05 BP 150 / 94; Pulse 68; Resp 20; Temp 98.1(O); Pulse Ox 100% on R/A; Weight 74.84 kg ak1 (R); Height 5 ft. 7 in. (170.18 cm) (R); Pain 0/10; 22:26 BP 156 / 84; Pulse 70; Resp 17; Pulse Ox 100% on R/A; Pain 0/10; ed1 20:05 Body Mass Index 25.84 (74.84 kg, 170.18 cm) ak1 MDM: 20:28 Patient medically screened. ps1 21:03 Data reviewed: vital signs, nurses notes, lab test result(s), and as a result, I will ps1 discharge patient. ED course: sub q insulin given. Clinical Documentation Specialist 2. Chronic. Pt stable for DC. . 08/12 20:07 Order name: CMP; Complete Time: 21:01 ps1 08/12 20:07 Order name: CBC with Diff; Complete Time: 20:31 ps1 08/12 21:11 Order name: Glucose; Complete Time: 22:18 ed1 08/12 21:23 Order name: Glucose, Ancillary Testing; Complete Time: 22:18 EDMS Administered Medications: 20:30 Not Given (Other Intervention Used): Insulin Aspart 10 units Sub-Q once ed1 20:31 Drug: Insulin Regular Human 10 units {Co-Signature: ao (David Serrano RN).} {Note: BGL ed1 481.} Route: Sub-Q; Site: right lower abdomen; 21:18 Follow up: Response: No adverse reaction; Blood sugar is lowered ed1 21:18 Drug: metFORMIN 1000 mg Route: PO; ed1 22:28 Follow up: Response: No adverse reaction; Blood sugar is lowered ed1 21:21 Drug: NS 0.9% 1000 ml Route: IV; Rate: 1 bolus; Site: right antecubital; ed1 22:28 Follow up: IV Status: Completed infusion; IV Intake: 1000ml ed1 Point of Care Testing: Blood Glucose: 20:19 Blood Glucose: 481 mg/dL; ak1 22:18 Blood Glucose: 335 mg/dL; ed1 Ranges: Critical Glucose Levels:Adult <50 mg/dl or >400 mg/dl <40 mg/dl or >180 mg/dl Disposition: 08/12/18 21:08 Discharged to Home. Impression: Hyperglycemia, unspecified, Dementia in other diseases classified elsewhere. - Condition is Stable. - Discharge Instructions: Hyperglycemia. - Medication Reconciliation Form, Thank You Letter, Antibiotic Education, Prescription Opioid Use form. - Follow up: Michael Madrid MD; When: As needed; Reason: Continuance of care. Follow up: Emergency Department; When: As needed; Reason: Worsening of condition. - Problem is an ongoing problem. - Symptoms have improved. Signatures: Dispatcher [employer] EDMS Mauricio Miller MD MD rn Riggs, Erika, RN RN ed1 Reina Davila RN RN ak1 Augustine Vidal MD MD ps1 David mccullough Corrections: (The following items were deleted from the chart) 22:29 21:08 08/12/2018 21:08 Discharged to Home. Impression: Hyperglycemia, unspecified; ed1 Dementia in other diseases classified elsewhere. Condition is Stable. Forms are Medication Reconciliation Form, Thank You Letter, Antibiotic Education, Prescription Opioid Use. Follow up: Michael Madrid; When: As needed; Reason: Continuance of care. Follow up: Emergency Department; When: As needed; Reason: Worsening of condition. Problem is an ongoing problem. Symptoms have improved. ps1
[2018-08-12] MEDS ORDERED: NA CHLORIDE 0.9% 1,000 ML ONE (21:29)
[2018-08-12 22:45] VITALS: TEMP 98.1; O2SAT 100
[2018-08-12 22:47] VITALS: BP 156/84
== END 2018-08-12 22:29 | disposition home or self-care (01) ==
LOC: ER 19:46
DX: E11.65 Type 2 diabetes mellitus with hyperglycemia (principal)
CPT/HCPCS: 85025; 36415; 82947; 82962 ×3; 80053; 96360; 96372; 99284; J7030

== ENCOUNTER 2018-09-10 20:13 | Emergency (ER) | payer OTHER, MEDICARE ==
--- OUTSIDE RECORDS SUMMARY | 2018-09-10 20:15 | XMS REPORT | Clinical Summary ---
:1945 [facility] Address [address] [place] [address] Care Team Providers Name Role Phone Unavailable [...] 0 09/06/2017 Active TWIST LANCET) 28 gauge [facility] blood sugar Use as directed. 30 strip 0 09/06/2017 Active diagnostic (ACCUTREND GLUCOSE) Strp insulin detemir Inject 0.1 mLs (10 6 mL 0 09/06/2017 10/06/2017 (LEVEMIR FLEXPEN) Units total) 100 unit/mL (3 mL) subcutaneously 2 InPn injection (two) times daily for 30 days. donepezil Take 1 tablet (5 mg 30 tablet 11 09/06/2017 09/06/2018 (ARICEPT) 5 MG total) by mouth tablet nightly. Active Problems Problem Noted Date Encephalopathy 09/04/2017 Altered mental status, unspecified altered mental status type 09/04/2017 Altered mental status, unspecified 09/03/2017 Social History Tobacco Use Types Packs/Day Years Used Date Never Smoker Smokeless Tobacco: Never Used Alcohol Use Drinks/Week oz/Week Comments No Sex Assigned at Date Recorded Not on file Job Start Date Occupation Industry Not on file Not on file Not on file Travel History Travel Start Travel End No recent travel history available. Last Filed Vital Signs Not on file Plan of Treatment Not on file Results Not on fileafter 09/09/2017 Insurance Payer Benefit Plan / Group Subscriber ID Type Phone Address MEDICARE MEDICARE A B xxxxxxxxxx Medicare MCR SUPPLEMENT/INDIVIDUAL AARP/[facility] [employer] xxxxxxxxxxx [facility] Advance Directives For more information, please contact:[facility] [place] [phone] Code Status Date Activated Date Inactivated Comments Full Code 09/03/2017 3:06 AM 09/06/2017 6:11 PM This code status was determined by: Patient
--- OUTSIDE RECORDS SUMMARY | 2018-09-10 20:16 | XMS REPORT ---
:1945 [facility] Address [address] [place] [address] [address] Care Team Providers Name Role Phone KAR [...] Value Reference Range Comments SCAN RESULT (test uyfy=[id number]) CSF CULTURE + GRAM [id number] 17:06:00 Test Item Value Reference Range Comments CULTURE (BEAKER) (test dyms=0901) No growth GRAM STAIN RESULT (BEAKER) (test No WBCs rauu=9266) GRAM STAIN RESULT (BEAKER) (test No organisms seen yqpl=69201) HSV 1/2 PCR, [id number] 14:20:00 Test Item Value Reference Range Comments HSV BY PCR (BEAKER) (test baik=246) NEGATIVE NEGATIVE Herpes Simplex Virus (HSV) not [...] its performance characteristics determined by the [facility] Pathology Department, Section of Molecular Pathology. It has not been cleared or approved by the U.S. Food and Drug Administration (FDA), as FDA approval is not required for clinical use of the test. Validation was done as required by the Clinical Laboratory Amendments of 1988.MARIBELL TITER AND [id number] 10:36:00 Test Item Value Reference Range Comments MARIBELL TITER (BEAKER) (test fbbr=0540) :40 MARIBELL PATTERN (BEAKER) (test gpka=1301) Speckled POCT-GLUCOSE [id number] 08:31:00 Test Item Value Reference Range Comments POC-GLUCOSE METER (BEAKER) 321 mg/dL 70-110 Notified MARCE REBOLLAR/TESTED AT [facility] (test dzih=0862) [address] [place], [place] [id number] POCT-GLUCOSE [id number] 05:11:00 Test Item Value Reference Range Comments POC-GLUCOSE METER (BEAKER) 289 mg/dL 70-110 TESTED AT [address] (test pxhk=1169) [place] [id number] CRYPTOCOCCAL ANTIGEN, [id number] 00:44:00 Test Item Value Reference Range Comments CRYPTOCOCCAL ANTIGEN, CSF (BEAKER) (test Negative Negative, Interference dmnk=148) VDRL, [id number] 00:30:00 Test Item Value Reference Range Comments SYPHILIS VDRL QUANTITATION CSF (BEAKER) (test Nonreactive Nonreactive phzz=549) POCT-GLUCOSE [id number] 19:15:00 Test Item Value Reference Range Comments POC-GLUCOSE METER (BEAKER) 383 mg/dL 70-110 TESTED AT [address] (test cnbp=0769) [place] [id number] POCT-GLUCOSE [id number] 18:43:00 Test Item Value Reference Range Comments POC-GLUCOSE METER (BEAKER) 429 mg/dL 70-110 Notified MARCE REBOLLAR/TESTED AT [facility] (test rlrg=9804) [address] [place], [place] [address] CSF CELL COUNT [id number] 17:48:00 Test Item Value Reference Range Comments APPEARANCE CSF (BEAKER) (test ydij=564) Clear Clear COLOR CSF (BEAKER) (test eunj=598) Colorless Colorless RBC CSF (BEAKER) (test naaw=619) 7 /cu mm 0-5 WBC CSF (BEAKER) (test pjlo=8406) 0 /cu mm <=5 RBCS FRESH (BEAKER) (test fykh=3258) 100% Fresh NUMBER OF CELLS DIFF'D (BEAKER) (test rmlo=8307) 0 TUBE NUMBER CSF (BEAKER) (test rgcf=2157) 1 POCT-GLUCOSE [id number] 17:38:00 Test Item Value Reference Range Comments POC-GLUCOSE METER (BEAKER) 438 mg/dL 70-110 Notified MARCE REBOLLAR/TESTED AT [facility] (test plvj=5166) [address] [place] [address] PROTEIN, [id number] 15:45:00 Test Item Value Reference Range Comments PROTEIN CSF (BEAKER) (test wudv=916) 73 mg/dL 15-45 GLUCOSE, [id number] 15:44:00 Test Item Value Reference Range Comments GLUCOSE CSF (BEAKER) (test kmyo=107) 165 mg/dL 40-70 POCT-GLUCOSE [id number] 12:16:00 Test Item Value Reference Range Comments POC-GLUCOSE METER (BEAKER) 375 mg/dL 70-110 Notified MARCE REBOLLAR/TESTED AT [facility] (test uvgc=9537) [address] [place] [address] POCT-GLUCOSE [id number] 07:51:00 Test Item Value Reference Range Comments POC-GLUCOSE METER (BEAKER) 279 mg/dL 70-110 TESTED AT [address] (test fket=9875) [place] [id number] ANTI-NUCLEAR ANTIBODY (MARIBELL)2017-09-05 05:34:00 Test Item Value Reference Range Comments ANTI-NUCLEAR ANTIBODY (MARIBELL) (BEAKER) (test Positive Negative robs=095) POCT-GLUCOSE [id number] 21:44:00 Test Item Value Reference Range Comments POC-GLUCOSE METER (BEAKER) 244 mg/dL 70-110 TESTED AT [address] (test kgtl=9378) [facility] [address] MR, MRA, BRAIN, WITHOUT [id number] 21:12:00Reason for exam:-> Ischemic Stroke EvaluationFINAL REPORT MRA head and neck Comparison: None Reason for exam: Encephalopathy Discussion: 2 D and 3 -D odrz-ly-pajnsj MRA of the head and neck was [...] 2017 09:12 PMMR, MRA, NECK, WITHOUT IV [id number] 21:12:00Reason for exam:->Ischemic Stroke EvaluationFINAL REPORT MRA head and neck Comparison: None Reason for exam: Encephalopathy Discussion: 2 D and 3-D npjy-hc-hqxmie MRA of the head and neck was [...] SOTO M.D. on 09:12 PMMR, BRAIN, WITHOUT [id number] 21:09:00FINAL REPORT MRI brain Comparison: None Reason [...] SHERRIE SOTO M.D. on 09/04 09:09 PMPOCT-GLUCOSE [id number] 18:53:00 Test Item Value Reference Range Comments POC-GLUCOSE METER (BEAKER) 243 mg/dL 70-110 TESTED AT [address] (test uuds=1663) [facility] [address] POCT-GLUCOSE [id number] 14:28:00 Test Item Value Reference Range Comments POC-GLUCOSE METER (BEAKER) 363 mg/dL 70-110 TESTED AT [address] (test razn=9929) [facility] [address] POCT-GLUCOSE [id number] 14:22:00 Test Item Value Reference Range Comments POC-GLUCOSE METER (BEAKER) 341 mg/dL 70-110 TESTED AT [address] (test zfbk=0587) [facility] [address] POCT-GLUCOSE [id number] 14:18:00 Test Item Value Reference Range Comments POC-GLUCOSE METER (BEAKER) 441 mg/dL 70-110 TESTED AT [address] (test esie=6906) [place] [id number] POCT-GLUCOSE [id number] 12:12:00 Test Item Value Reference Range Comments POC-GLUCOSE METER (BEAKER) 326 mg/dL 70-110 TESTED AT [address] (test oxke=3819) [place] [id number] POCT-GLUCOSE [id number] 08:50:00 Test Item Value Reference Range Comments POC-GLUCOSE METER (BEAKER) 153 mg/dL 70-110 TESTED AT [address] (test kcrj=1385) [facility] [address] [id number] 07:11:00 Test Item Value Reference Range Comments RPR SCREEN (BEAKER) (test qges=679) Nonreactive Nonreactive POCT-GLUCOSE [id number] 21:31:00 Test Item Value Reference Range Comments POC-GLUCOSE METER (BEAKER) 306 mg/dL 70-110 Notified MARCE REBOLLAR/TESTED AT [facility] (test pmek=6884) [address] [place] [address] POCT-GLUCOSE [id number] 17:42:00 Test Item Value Reference Range Comments POC-GLUCOSE METER (BEAKER) 395 mg/dL 70-110 TESTED AT [address] (test fpwh=2171) [place] [id number] EEG AWAKE AND [id number] 16:15:00Reason for exam:->SeizuresDate(s) of EE09/03/17DATE OF REPORT: 09/03/17MRN: [id number]: [id number] Number: [id number] Location: Inpatient RoomStart time: 14:30Stop time: 14:51ICD-10: R56.9CPT Code: 33109 HISTORY: Mr. Powers is a RH 71 y.o. 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 Elisa Jordan MDNeurophysiology Fellow, [id number] note: I personally reviewed this EEG record in its entirety and I agree with the details of this report. Martha Pace MD Clinical Neurophysiology/Epilepsy Attending URINALYSIS W/ REFLEX URINE [id number] 11:56:00 Test Item Value Reference Range Comments COLOR (BEAKER) (test qcff=587) Light Yellow CLARITY (BEAKER) (test rbbp=877) Clear SPECIFIC GRAVITY UA (BEAKER) (test nxzx=458) 1.005 1.001-1.035 PH UA (BEAKER) (test ouwr=567) 5.0 5.0-8.0 PROTEIN UA (BEAKER) (test wlos=933) Negative Negative GLUCOSE UA (BEAKER) (test nxqc=136) 300 mg/dL Negative KETONES UA (BEAKER) (test dheh=630) Trace Negative BILIRUBIN UA (BEAKER) (test nhlr=763) Negative Negative BLOOD UA (BEAKER) (test ikau=729) Negative Negative NITRITE UA (BEAKER) (test yled=511) Negative Negative LEUKOCYTE ESTERASE UA (BEAKER) (test qilx=448) Negative Negative UROBILINOGEN UA (BEAKER) (test eoba=899) 0.2 mg/dL 0.2-1.0 RBC UA (BEAKER) (test njel=898) < /HPF WBC UA (BEAKER) (test kdzh=751) 0 /HPF MUCUS (BEAKER) (test rwdm=1342) Rare SOURCE(BEAKER) (test stzs=7047) SEDIMENTATION [id number] 11:22:00 Test Item Value Reference Range Comments SEDIMENTATION RATE, ERYTHROCYTE (BEAKER) (test 86 mm/HR 0-40 rfjk=675) HEMOGLOBIN [id number] 10:37:00 Test Item Value Reference Range Comments HEMOGLOBIN A1C (BEAKER) (test phiy=996) 10.1 % 4.3-6.1 FastingVITAMIN [id number] 09:09:00 Test Item Value Reference Range Comments VITAMIN B12 (BEAKER) (test hfwg=275) 717 pg/mL 213-816 [id number] 08:49:00 Test Item Value Reference Range Comments HOMOCYSTEINE (BEAKER) (test npsl=721) 14.8 umol/L 5.1-15.4 FastingPOCT-GLUCOSE [id number] 08:39:00 Test Item Value Reference Range Comments POC-GLUCOSE METER (BEAKER) 329 mg/dL 70-110 Notified MARCE REBOLLAR/TESTED AT [facility] (test fbhq=5462) [address] [facility] [address] TSH/FREE T4 IF [id number] 07:33:00 Test Item Value Reference Range Comments THYROID STIMULATING HORMONE (BEAKER) (test 0.49 uIU/mL 0.35-4.94 umkg=938) FastingHIV-1 ANTIGEN WITH HIV-1/2 [id number] 07:28:00 Test Item Value Reference Range Comments HIV-1 ANTIGEN WITH HIV 1\T\2 ANTIBODY (2) Nonreactive Nonreactive (BEAKER) (test xwqw=5228) C-REACTIVE [id number] 07:08:00 Test Item Value Reference Range Comments C-REACTIVE PROTEIN (BEAKER) (test mbjg=062) 0.68 mg/dL 0.00-0.50 LIPID [id number] 07:08:00 Test Item Value Reference Range Comments TRIGLYCERIDES (BEAKER) (test cqtv=898) 155 mg/dL CHOLESTEROL (BEAKER) (test wmkc=087) 155 mg/dL HDL CHOLESTEROL (BEAKER) (test tidg=320) 35 mg/dL LDL CHOLESTEROL CALCULATED (BEAKER) (test 89 mg/dL rhag=497) Triglyceride Reference Range: Low Risk <150 Borderline 150- 199 High Risk 200-499 Very High Risk >=500Cholesterol Reference Range: Low Risk <200 Borderline 200-239 High Risk > 240HDL Cholesterol Reference Range: Low Risk >=60 High Risk <40LDL Cholesterol Reference Range: Optimal <100 Near Optimal 100-129 Borderline 130-159 High 160-189 Very High >=190 FastingBASIC METABOLIC [id number] 07:08:00 Test Item Value Reference Range Comments SODIUM (BEAKER) (test 137 meq/L 136-145 letk=161) POTASSIUM (BEAKER) (test 4.2 meq/L 3.5-5.1 lbdc=918) CHLORIDE (BEAKER) (test 103 meq/L 98-107 nbnb=874) CO2 (BEAKER) (test 23 meq/L 22-29 zfio=086) BLOOD UREA NITROGEN 34 mg/dL 7-21 (BEAKER) (test odcc=441) CREATININE (BEAKER) (test 1.78 mg/dL 0.57-1.25 hfws=809) GLUCOSE RANDOM (BEAKER) 336 mg/dL 70-105 (test ghgu=598) CALCIUM (BEAKER) (test 9.4 mg/dL 8.4-10.2 wqjz=083) EGFR (BEAKER) (test 38 mL/min/1.73 sq m ESTIMATED GFR IS NOT hvuz=9925) ACCURATE CREATININE CLEARANCE IN PREDICTING GLOMERULAR FILTRATION RATE. ESTIMATED GFR IS NOT APPLICABLE FOR DIALYSIS PATIENTS. FastingHEPATIC FUNCTION [id number] 07:08:00 Test Item Value Reference Range Comments TOTAL PROTEIN (BEAKER) (test zgcn=859) 7.0 gm/dL 6.0-8.3 ALBUMIN (BEAKER) (test crwj=5757) 4.0 g/dL 3.5-5.0 BILIRUBIN TOTAL (BEAKER) (test qewb=349) 0.5 mg/dL 0.2-1.2 BILIRUBIN DIRECT (BEAKER) (test yenl=164) 0.2 mg/dL 0.1-0.5 ALKALINE PHOSPHATASE (BEAKER) (test pgyj=253) 77 U/L 40-150 AST (SGOT) (BEAKER) (test ceim=078) 12 U/L 5-34 ALT (SGPT) (BEAKER) (test qmxn=507) 12 U/L 6-55 FastingLIPID [id number] 07:06:00 Test Item Value Reference Range Comments TRIGLYCERIDES (BEAKER) (test xcty=712) 160 mg/dL CHOLESTEROL (BEAKER) (test uhvz=838) 159 mg/dL HDL CHOLESTEROL (BEAKER) (test pxtp=065) 37 mg/dL LDL CHOLESTEROL CALCULATED (BEAKER) (test 90 mg/dL kiyw=533) Triglyceride Reference Range: Low Risk <150 Borderline 150- 199 High Risk 200-499 Very High Risk >=500Cholesterol Reference Range: Low Risk <200 Borderline 200-239 High Risk > 240HDL Cholesterol Reference Range: Low Risk >=60 High Risk <40LDL Cholesterol Reference Range: Optimal <100 Near Optimal 100-129 Borderline 130-159 High 160-189 Very High >=[id number] 06:55:00 Test Item Value Reference Range Comments AMMONIA (BEAKER) (test hpak=086) 13 mol/L 18-72 PROTHROMBIN [id number] 06:33:00 Test Item Value Reference Range Comments PROTIME (BEAKER) (test yxsh=228) 16.5 seconds 11.7-14.7 INR (BEAKER) (test arfv=395) 1.3 <=5.9 RECOMMENDED COUMADIN/WARFARIN INR THERAPY RANGESSTANDARD DOSE: 2.0 - 3.0 Includes: PROPHYLAXIS forvenous thrombosis, systemic embolization; TREATMENT for venous thrombosis and/or pulmonary embolus.HIGH RISK: Target INR is 2.5-3.5 for patients with mechanical heart valves.CBC W/PLT COUNT & AUTO [id number] 06:21:00 Test Item Value Reference Range Comments WHITE BLOOD CELL COUNT (BEAKER) (test mjrf=991) 8.8 K/ L 3.5-10.5 RED BLOOD CELL COUNT (BEAKER) (test ihjv=353) 4.13 M/ L 4.63-6.08 HEMOGLOBIN (BEAKER) (test hokv=588) 11.8 GM/DL 13.7-17.5 HEMATOCRIT (BEAKER) (test pjuq=206) 34.7 % 40.1-51.0 MEAN CORPUSCULAR VOLUME (BEAKER) (test xpll=682) 84.0 fL 79.0-92.2 MEAN CORPUSCULAR HEMOGLOBIN (BEAKER) (test 28.6 pg 25.7-32.2 zdit=359) MEAN CORPUSCULAR HEMOGLOBIN CONC (BEAKER) (test 34.0 GM/DL 32.3-36.5 zjhc=005) RED CELL DISTRIBUTION WIDTH (BEAKER) (test 13.0 % 11.6-14.4 mdpq=389) PLATELET COUNT (BEAKER) (test qtou=887) 203 K/CU MM 150-450 MEAN PLATELET VOLUME (BEAKER) (test qozf=997) 9.5 fL 9.4-12.4 NUCLEATED RED BLOOD CELLS (BEAKER) (test 0 /100 WBC 0-0 njxb=221) NEUTROPHILS RELATIVE PERCENT (BEAKER) (test 77 % gzsz=227) LYMPHOCYTES RELATIVE PERCENT (BEAKER) (test 15 % rykv=321) MONOCYTES RELATIVE PERCENT (BEAKER) (test 7 % ebsz=195) EOSINOPHILS RELATIVE PERCENT (BEAKER) (test 0 % roet=137) BASOPHILS RELATIVE PERCENT (BEAKER) (test 1 % znsl=068) NEUTROPHILS ABSOLUTE COUNT (BEAKER) (test 6.73 K/ L 1.78-5.38 hkvr=782) LYMPHOCYTES ABSOLUTE COUNT (BEAKER) (test 1.28 K/ L 1.32-3.57 geqs=712) MONOCYTES ABSOLUTE COUNT (BEAKER) (test 0.59 K/ L 0.30-0.82 yqnd=845) EOSINOPHILS ABSOLUTE COUNT (BEAKER) (test 0.00 K/ L 0.04-0.54 oxli=655) BASOPHILS ABSOLUTE COUNT (BEAKER) (test 0.07 K/ L 0.01-0.08 zxnf=267) IMMATURE GRANULOCYTES-RELATIVE PERCENT (BEAKER) 1 % 0-1 (test rfdc=7659)
[2018-09-10] MEDS ORDERED: INSULIN -REGULAR HUMAN 50 UNIT/0.5 ML ML ONE ×2 (21:26→23:06)
[2018-09-10] MEDS ORDERED: NA CHLORIDE 0.9% 1,000 ML ONE (21:26)
[2018-09-10 21:47] LABS: Absolute Lymphocytes (CBC) 1.5 K/uL (0.7-4.9); Absolute Monocytes 0.5 K/uL (0.1-1.3); Absolute Neutrophil 4.3 K/uL (1.8-8.0); Basophils % 0.8 % (0-1.3); Hematocrit 36.1 % (39.6-49.0); Lymphocytes % 23.5 % (15.3-44.8); MPV 8.1 fL (7.6-11.3); Monocytes % 7.9 % (3.3-12.3); RBC Red Blood Cell Count 4.25 M/uL (4.33-5.43)
[2018-09-10 21:59] LABS: BUN Blood Urea Nitrogen 41 mg/dL (7-18); Bicarbonate 24 mmol/L (21-32); Potassium 4.6 mmol/L (3.5-5.1); Sodium Level 136 mmol/L (136-145)
[2018-09-10 22:01] LABS: Glucose Level 522 mg/dL (74-106)
[2018-09-11] MEDS ORDERED: GLUCAGON 1 MG/VIAL ONE (02:59)
--- NOTE | 2018-09-11 04:50 | EDPHYS ---
Physician Documentation [facility] Name: Agustin Petty Sr Age: 72 yrs Sex: Male : 1945 Arrival Date: 09/10/2018 Time: 20:15 Bed 8 Private MD: Michael Madrid ED Physician Mauricio Miller HPI: 09/10 21:43 This 72 yrs old Male presents to ER via Wheelchair with complaints of High rn Blood Sugar. 21:43 The patient or guardian reports hyperglycemia. Onset: The symptoms/episode rn began/occurred at an unknown time. Associated signs and symptoms: Pertinent positives: Pertinent negatives:. 21:43 Current symptoms: In the emergency department the patient's symptoms are unchanged from rn the initial presentation. The patient has experienced similar episodes in the past. The patient has not recently seen a physician. Family reports not taking his insulin, has a prescription that was filled June, supposed to last 1 month, and still half full of his insulin, patient has dementia and is forgetful, he admits to not taking his insulin. No vomiting/diarrhea/pain.. Historical: - Allergies: 20:37 No Known Allergies; ak1 - Home Meds: 20:37 alendronate 70 mg/75 mL Oral soln 75 mL once wkly [Active]; aspirin 81 mg Oral chew 1 ak1 tab once daily [Active]; glimepiride 4 mg Oral tab 1 tab once daily [Active]; Iron CR 65mg Oral [Active]; Januvia 50 mg Oral tab 1 tabs once daily [Active]; lisinopril 20 mg Oral tab 1 tab once daily [Active]; metformin 1,000 mg Oral TG24 1 tab 2 times per day [Active]; multivitamin Oral [Active]; rosuvastatin 20 mg Oral tab 1 tab once daily [Active]; Tresiba FlexTouch U-100 30units subcutaneous inpn [Active]; Vitamin C 1,000 mg Oral tab [Active]; - PMHx: 20:37 Diabetes - NIDDM; Hyperlipidemia; Hypertension; ak1 22:26 Dementia; aa1 - Immunization history:: Adult Immunizations unknown. - Social history:: Smoking status: Patient/guardian denies using tobacco. - Ebola Screening: : No symptoms or risks identified at this time. - Family history:: not pertinent. - Hospitalizations: : No recent hospitalization is reported. ROS: 21:43 Constitutional: Negative for fever, chills, and weight loss, Eyes: Negative for injury, rn pain, redness, and discharge, Neck: Negative for injury, pain, and swelling, Cardiovascular: Negative for chest pain, palpitations, and edema, Respiratory: Negative for shortness of breath, cough, wheezing, and pleuritic chest pain, Abdomen/GI: Negative for abdominal pain, nausea, vomiting, diarrhea, and constipation, MS/Extremity: Negative for injury and deformity, Skin: Negative for injury, rash, and discoloration, Neuro: Negative for headache, numbness, tingling, and seizure, Endocrine: + polyuria Exam: 21:43 Constitutional: Thin male, no acute distress Head/Face: Normocephalic, atraumatic. rn Eyes: Pupils equal round and reactive to light, extra-ocular motions intact. Lids and lashes normal. Conjunctiva and sclera are non-icteric and not injected. Cornea within normal limits. Periorbital areas with no swelling, redness, or edema. ENT: dry MM Cardiovascular: Regular rate and rhythm. No pulse deficits. Respiratory: Lungs have equal breath sounds bilaterally, clear to auscultation. No increased work of breathing, no retractions or nasal flaring. Abdomen/GI: soft, non-tender Skin: Warm, dry MS/ Extremity: Pulses equal, no cyanosis. Neurovascular intact. Full, normal range of motion. Equal circumference. Neuro: Awake and alert, GCS 15, oriented to person, place, month. Cranial nerves II-XII grossly intact. Motor strength 5/5 in all extremities. Sensory grossly intact. Cerebellar exam normal. Vital Signs: 20:37 BP 161 / 74; Pulse 65; Resp 18; Temp 98.1; Pulse Ox 100% on R/A; Weight 68.04 kg (R); ak1 Height 5 ft. 5 in. (165.10 cm); Pain 0/10; 21:30 BP 171 / 80; Pulse 62; Resp 20; Pulse Ox 99% on R/A; Pain 0/10; aa1 22:19 BP 174 / 75; Pulse 66; Resp 18; Pulse Ox 98% on R/A; Pain 0/10; aa1 22:37 BP 156 / 86; Pulse 64; Resp 18; Pulse Ox 97% on R/A; Pain 0/10; aa1 23:31 BP 144 / 76; Pulse 60; Resp 18; Pulse Ox 98% on R/A; Pain 0/10; aa1 09/11 00:30 BP 155 / 73; Pulse 62; Resp 18; Temp 98.2; Pulse Ox 99% on R/A; Pain 0/10; aa1 01:33 BP 133 / 70; Pulse 64; Resp 16; Pulse Ox 98% on R/A; Pain 0/10; aa1 02:30 BP 123 / 68; Pulse 70; Resp 18; Pulse Ox 98% on R/A; lp1 03:00 BP 159 / 72; Pulse 72; Resp 18; Pulse Ox 98% on R/A; lp1 03:45 BP 133 / 70; Pulse 64; Resp 18; Pulse Ox 99% on R/A; lp1 04:30 BP 137 / 77; Pulse 65; Resp 18; Pulse Ox 99% on R/A; Pain 0/10; lp1 09/10 20:37 Body Mass Index 24.96 (68.04 kg, 165.10 cm) ak1 MDM: 09/10 20:55 Patient medically screened. rn 23:24 Differential diagnosis: hyperglycemia. 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 Counseling: I had a detailed discussion with the patient and/or guardian regarding: the historical points, exam findings, and any diagnostic results supporting the discharge/admit diagnosis, lab results, the need for outpatient follow up, to return to the emergency department if symptoms worsen or persist or if there are any questions or concerns that arise at home. Response to treatment: the patient's symptoms have markedly improved after treatment, patient is well hydrated. and as a result, I will discharge patient. Special discussion: I discussed with the patient/guardian in detail that at this point there is no indication for admission to the hospital. It is understood, however, that if the symptoms persist or worsen the patient needs to return immediately for re-evaluation. Based on the history and exam findings, there is no indication for further emergent testing or inpatient evaluation. I discussed with the patient/guardian the need to see the primary care provider for further evaluation of the symptoms. ED course: Spoke at length with family regarding hyperglycemia, no sign of acidosis, stable vitals, neg ketones, hydrated with fluids and now glucose improving. Talked to them about someone monitoring insulin administration vs home health vs custodial, Will continue to monitor until glucose < 300 and dc home, especially since primary problem is patient forgetting or just non-compliance. . 09/11 02:01 ED course: Pt with glucose of 88, given peanut butter, will cont to observe until rn uptrending glucose. . 03:27 ED course: glucose up to 208. ED course: Will continue to observe patient for stable rn glucose. . 09/10 21:04 Order name: CBC with Diff; Complete Time: 21:52 rn 09/10 21:04 Order name: Basic Metabolic Panel; Complete Time: 22:07 rn 09/10 21:04 Order name: Ketone, Serum; Complete Time: 22:07 rn 09/10 21:04 Order name: Osmolality, Serum; Complete Time: 22:02 rn 09/10 21:04 Order name: IV Start; Complete Time: 21:11 rn 09/10 21:04 Order name: Glucose Level; Complete Time: 21:08 rn Administered Medications: 09/10 21:28 Drug: Insulin Regular Human 10 units {Co-Signature: lp1 (Elizabeth Sanchez RN).} Route: Sub-Q; aa1 Site: right upper arm; 22:48 Follow up: Response: Blood sugar is lowered aa1 21:29 Drug: NS 0.9% 1000 ml Route: IV; Rate: 1000 ml; Site: right antecubital; aa1 22:55 Drug: Insulin Regular Human 5 units {Co-Signature: bb (Cristiana Lang RN).} Route: aa1 Sub-Q; Site: right upper arm; 09/11 02:57 Drug: Glucagon 1 mg Route: IVP; Site: right antecubital; lp1 03:30 Follow up: Response: Blood sugar is elevated lp1 Point of Care Testing: Blood Glucose: 09/10 21:05 Blood Glucose: 477 mg/dL; aa1 22:42 Blood Glucose: 349 mg/dL; aa1 09/11 00:03 Blood Glucose: 133 mg/dL; aa1 01:06 Blood Glucose: 94 mg/dL; aa1 01:36 Blood Glucose: 88 mg/dL; aa1 02:37 Blood Glucose: 71 mg/dL; ag4 03:21 Blood Glucose: 208 mg/dL; lp1 04:12 Blood Glucose: 167 mg/dL; lp1 04:47 Blood Glucose: 189 mg/dL; lp1 00:03 Dr. Miller notified. Pt given sandwich aa1 01:06 Dr. Miller notified aa1 Ranges: Critical Glucose Levels:Adult <50 mg/dl or >400 mg/dl <40 mg/dl or >180 mg/dl Disposition: 09/11/18 04:49 Discharged to Home. Impression: Hyperglycemia, unspecified, Dehydration. - Condition is Stable. - Discharge Instructions: Dehydration, Adult, Hyperglycemia, Blood Glucose Monitoring, Adult. - Medication Reconciliation Form, Thank You Letter, Antibiotic Education, Prescription Opioid Use form. - Follow up: Private Physician; When: As needed; Reason: Recheck today's complaints, Re-evaluation by your physician. - Problem is an ongoing problem. - Symptoms have improved. Signatures: Dispatcher [employer] EDMS Radha Cabello RN RN aa1 Mauricio Miller MD MD rn Pena, Laura, RN RN lp1 Reina Davila RN RN ak1 Elizabeth Sanchez RN lp1 Cristiana Lang RN bb Corrections: (The following items were deleted from the chart) 09/10 23:45 21:04 Urine Dipstick-Ancillary ordered. chay cartwright 09/11 05:15 04:49 09/11/2018 04:49 Discharged to Home. Impression: Hyperglycemia, unspecified; lp1 Dehydration. Condition is Stable. Forms are Medication Reconciliation Form, Thank You Letter, Antibiotic Education, Prescription Opioid Use. Follow up: Private Physician; When: As needed; Reason: Recheck today's complaints, Re-evaluation by your physician. Problem is an ongoing problem. Symptoms have improved. rn
--- NOTE | 2018-09-11 04:50 | ER ---
Nurse's Notes [facility] Name: Agustin Petty Sr Age: 72 yrs Sex: Male : 1945 Arrival Date: 09/10/2018 Time: 20:15 Bed 8 Private MD: Michael Madrid Diagnosis: Hyperglycemia, unspecified;Dehydration Presentation: 09/10 20:35 Presenting complaint: Patient states: blood sugar reading "high" on home meter. pt son ak1 stated it is unsure if pt has been taking his home medications. Transition of care: patient was not received from another setting of care. Onset of symptoms was September 10, 2018. Risk Assessment: Do you want to hurt yourself or someone else? Patient reports no desire to harm self or others. Care prior to arrival: None. 20:35 Method Of Arrival: Wheelchair ak1 20:35 Acuity: ALVIN 3 ak1 09/11 02:30 Initial Sepsis Screen: Does the patient meet any 2 criteria? No. Patient's initial lp1 sepsis screen is negative. Does the patient have a suspected source of infection? No. Patient's initial sepsis screen is negative. Triage Assessment: 09/10 20:37 General: Appears in no apparent distress. ak1 Historical: - Allergies: 20:37 No Known Allergies; ak1 - Home Meds: 20:37 alendronate 70 mg/75 mL Oral soln 75 mL once wkly [Active]; aspirin 81 mg Oral chew 1 ak1 tab once daily [Active]; glimepiride 4 mg Oral tab 1 tab once daily [Active]; Iron CR 65mg Oral [Active]; Januvia 50 mg Oral tab 1 tabs once daily [Active]; lisinopril 20 mg Oral tab 1 tab once daily [Active]; metformin 1,000 mg Oral TG24 1 tab 2 times per day [Active]; multivitamin Oral [Active]; rosuvastatin 20 mg Oral tab 1 tab once daily [Active]; Tresiba FlexTouch U-100 30units subcutaneous inpn [Active]; Vitamin C 1,000 mg Oral tab [Active]; - PMHx: 20:37 Diabetes - NIDDM; Hyperlipidemia; Hypertension; ak1 22:26 Dementia; aa1 - Immunization history:: Adult Immunizations unknown. - Social history:: Smoking status: Patient/guardian denies using tobacco. - Ebola Screening: : No symptoms or risks identified at this time. - Family history:: not pertinent. - Hospitalizations: : No recent hospitalization is reported. Screenin:37 Abuse screen: Denies threats or abuse. Denies injuries from another. Nutritional ak1 screening: No deficits noted. Tuberculosis screening: No symptoms or risk factors identified. Fall Risk No fall in past 12 months (0 pts). Ambulatory Aid- Crutches/Cane/Walker (15 pts). Gait- Weak (10 pts.). Assessment: 20:45 General: Appears in no apparent distress. comfortable, Behavior is calm, cooperative, aa1 appropriate for age. Pain: Denies pain. Neuro: Level of Consciousness is awake, alert, obeys commands, pt has hx of dementia with int confusion. Moves all extremities. Speech is normal. Cardiovascular: Heart tones S1 S2 present Rhythm is regular. Respiratory: Airway is patent Respiratory effort is even, unlabored, Respiratory pattern is regular, symmetrical. GI: No signs and/or symptoms were reported involving the gastrointestinal system. : No signs and/or symptoms were reported regarding the genitourinary system. EENT: No signs and/or symptoms were reported regarding the EENT system. Derm: Skin is intact, is healthy with good turgor, Skin is pink, warm \\T\\ dry. Musculoskeletal: Circulation, motion, and sensation intact. Capillary refill < 3 seconds. 21:30 Reassessment: Patient appears in no apparent distress at this time. Patient and/or aa1 family updated on plan of care and expected duration. Pain level reassessed. Patient is alert, oriented x 3, equal unlabored respirations, skin warm/dry/pink. Awaiting lab results. 22:21 Reassessment: Patient appears in no apparent distress at this time. Patient and/or aa1 family updated on plan of care and expected duration. Pain level reassessed. Patient is alert, oriented x 3, equal unlabored respirations, skin warm/dry/pink. Pt attempted to provide urine sample but was unsuccessful; will continue to monitor. 23:31 Reassessment: Patient appears in no apparent distress at this time. Patient and/or aa1 family updated on plan of care and expected duration. Pain level reassessed. Patient is alert, oriented x 3, equal unlabored respirations, skin warm/dry/pink. Per MD will d/c once BGL below 300. Will continue to monitor. 09/11 00:30 Reassessment: Patient appears in no apparent distress at this time. Patient and/or aa1 family updated on plan of care and expected duration. Pain level reassessed. Patient is alert, oriented x 3, equal unlabored respirations, skin warm/dry/pink. Pt reports he has finished eating sandwich. Per MD, recheck FSBS in 30 mins and ok to d/c if remains stable. 01:07 Reassessment: Repeat BGL 94; per Dr. Miller will recheck again in 30 mins. aa1 01:36 Reassessment: Patient appears in no apparent distress at this time. Patient and/or aa1 family updated on plan of care and expected duration. Pain level reassessed. Patient is alert, oriented x 3, equal unlabored respirations, skin warm/dry/pink. Repeat BGL 88; pt given cracker, peanut butter, and diet cola. 02:58 Reassessment: Patient appears in no apparent distress at this time. Patient is alert, lp1 oriented x 3, equal unlabored respirations, skin warm/dry/pink. Patient aware of need to raise blood glucose level Patient states feeling better. 04:00 Reassessment: Patient appears in no apparent distress at this time. No changes from lp1 previously documented assessment. Patient and/or family updated on plan of care and expected duration. Pain level reassessed. Patient is alert, oriented x 3, equal unlabored respirations, skin warm/dry/pink. 05:05 Reassessment: Patient is alert, oriented x 3, equal unlabored respirations, skin lp1 warm/dry/pink. Patient denies pain at this time. Patient states feeling better. Patient states symptoms have improved. Vital Signs: 09/10 20:37 BP 161 / 74; Pulse 65; Resp 18; Temp 98.1; Pulse Ox 100% on R/A; Weight 68.04 kg (R); ak1 Height 5 ft. 5 in. (165.10 cm); Pain 0/10; 21:30 BP 171 / 80; Pulse 62; Resp 20; Pulse Ox 99% on R/A; Pain 0/10; aa1 22:19 BP 174 / 75; Pulse 66; Resp 18; Pulse Ox 98% on R/A; Pain 0/10; aa1 22:37 BP 156 / 86; Pulse 64; Resp 18; Pulse Ox 97% on R/A; Pain 0/10; aa1 23:31 BP 144 / 76; Pulse 60; Resp 18; Pulse Ox 98% on R/A; Pain 0/10; aa1 09/11 00:30 BP 155 / 73; Pulse 62; Resp 18; Temp 98.2; Pulse Ox 99% on R/A; Pain 0/10; aa1 01:33 BP 133 / 70; Pulse 64; Resp 16; Pulse Ox 98% on R/A; Pain 0/10; aa1 02:30 BP 123 / 68; Pulse 70; Resp 18; Pulse Ox 98% on R/A; lp1 03:00 BP 159 / 72; Pulse 72; Resp 18; Pulse Ox 98% on R/A; lp1 03:45 BP 133 / 70; Pulse 64; Resp 18; Pulse Ox 99% on R/A; lp1 04:30 BP 137 / 77; Pulse 65; Resp 18; Pulse Ox 99% on R/A; Pain 0/10; lp1 09/10 20:37 Body Mass Index 24.96 (68.04 kg, 165.10 cm) ak1 ED Course: 09/10 20:15 Patient arrived in ED. am2 20:15 Michael Madrid MD is Private Physician. am2 20:36 Triage completed. ak1 20:37 Arm band placed on Patient placed in an exam room, on a stretcher, on pulse oximetry, ak1 Patient notified of wait time. 20:37 Patient has correct armband on for positive identification. Placed in gown. Bed in low ak1 position. Call light in reach. Side rails up X2. Adult w/ patient. Pulse ox on. NIBP on. Door closed. Warm blanket given. 20:55 Mauricio Miller MD is Attending Physician. rn 21:08 Radha Cabello RN is Primary Nurse. aa1 21:15 Inserted saline lock: 20 gauge in right antecubital area, using aseptic technique. ag4 Blood collected. 22:01 Notified ED physician of a critical lab result(s). Glucose of 522. Dr Miller notified. bb 09/11 02:20 Report given to Elizabeth Sanchez, RN. aa1 04:10 No provider procedures requiring assistance completed. lp1 05:05 IV discontinued, No redness/swelling at site. Pressure dressing applied. lp1 Administered Medications: 09/10 21:28 Drug: Insulin Regular Human 10 units {Co-Signature: andrew1 (Elizabeth Sanchez RN).} Route: Sub-Q; aa1 Site: right upper arm; 22:48 Follow up: Response: Blood sugar is lowered aa1 21:29 Drug: NS 0.9% 1000 ml Route: IV; Rate: 1000 ml; Site: right antecubital; aa1 22:55 Drug: Insulin Regular Human 5 units {Co-Signature: bb (Cristiana Lang RN).} Route: aa1 Sub-Q; Site: right upper arm; 09/11 02:57 Drug: Glucagon 1 mg Route: IVP; Site: right antecubital; lp1 03:30 Follow up: Response: Blood sugar is elevated lp1 Point of Care Testing: Blood Glucose: 09/10 21:05 Blood Glucose: 477 mg/dL; aa1 22:42 Blood Glucose: 349 mg/dL; aa1 09/11 00:03 Blood Glucose: 133 mg/dL; aa1 01:06 Blood Glucose: 94 mg/dL; aa1 01:36 Blood Glucose: 88 mg/dL; aa1 02:37 Blood Glucose: 71 mg/dL; ag4 03:21 Blood Glucose: 208 mg/dL; lp1 04:12 Blood Glucose: 167 mg/dL; lp1 04:47 Blood Glucose: 189 mg/dL; lp1 00:03 Dr. Miller notified. Pt given sandwich aa1 01:06 Dr. Miller notified aa1 Ranges: Outcome: 04:49 Discharge ordered by . rn 05:05 Discharged to home via wheelchair, with family. lp1 05:05 Condition: good 05:05 Discharge instructions given to patient, Instructed on discharge instructions, follow up and referral plans. Demonstrated understanding of instructions, follow-up care. 05:15 Patient left the ED. lp1 Signatures: Radha Cabello RN RN aa1 Cristiana Lang RN RN bb Nieto, Roman, MD MD rn Pena, Laura, RN RN lp1 Reina Davila RN RN ak1 Abby Weiner amCristopher Velasquez ag4 Elizabeth Sanchez RN lp1 Cristiana Lang RN bb
[2018-09-11 05:27] VITALS: TEMP 98.2
[2018-09-11 05:32] VITALS: O2SAT 99
[2018-09-11 05:34] VITALS: BP 137/77
== END 2018-09-11 05:15 | disposition home or self-care (01) ==
LOC: ER 20:13
DX: E11.65 Type 2 diabetes mellitus with hyperglycemia (principal); E86.0 Dehydration; I10 Essential (primary) hypertension; E78.5 Hyperlipidemia, unspecified
CPT/HCPCS: 85025; 80048; 36415; 82010; 82962 ×9; 83930; 96372; 96374; 99284; J1610; J7030

== ENCOUNTER 2018-10-06 14:56 | Emergency (ER) | payer OTHER, MEDICARE ==
--- OUTSIDE RECORDS SUMMARY | 2018-10-06 14:58 | XMS REPORT ---
:1945 [facility] Address [address] [place] [address] [address] Care Team Providers Name Role Phone KAR [...] Value Reference Range Comments SCAN RESULT (test mpfm=[id number]) CSF CULTURE + GRAM [id number] 17:06:00 Test Item Value Reference Range Comments CULTURE (BEAKER) (test cpsv=2916) No growth GRAM STAIN RESULT (BEAKER) (test No WBCs ezya=6532) GRAM STAIN RESULT (BEAKER) (test No organisms seen jhgb=82454) HSV 1/2 PCR, [id number] 14:20:00 Test Item Value Reference Range Comments HSV BY PCR (BEAKER) (test rguo=960) NEGATIVE NEGATIVE Herpes Simplex Virus (HSV) not [...] and its performance characteristics determined by the [facility] Pathology Department, Section of Molecular Pathology. It has not been cleared or approved by the U.S. Food and Drug Administration (FDA), as FDA approval is not required for clinical use of the test. Validation was done as required by the Clinical Laboratory Amendments of 1988.MARIBELL TITER AND [id number] 10:36:00 Test Item Value Reference Range Comments MARIBELL TITER (BEAKER) (test lhor=6065) :40 MARIBELL PATTERN (BEAKER) (test ldhz=7758) Speckled POCT-GLUCOSE [id number] 08:31:00 Test Item Value Reference Range Comments POC-GLUCOSE METER (BEAKER) 321 mg/dL 70-110 Notified MARCE REBOLLAR/TESTED AT [facility] (test yyia=4682) [address] [place], [place] [id number] POCT-GLUCOSE [id number] 05:11:00 Test Item Value Reference Range Comments POC-GLUCOSE METER (BEAKER) 289 mg/dL 70-110 TESTED AT [address] (test zvsb=2790) [place] [id number] CRYPTOCOCCAL ANTIGEN, [id number] 00:44:00 Test Item Value Reference Range Comments CRYPTOCOCCAL ANTIGEN, CSF (BEAKER) (test Negative Negative, Interference okkq=957) VDRL, [id number] 00:30:00 Test Item Value Reference Range Comments SYPHILIS VDRL QUANTITATION CSF (BEAKER) (test Nonreactive Nonreactive yuzo=561) POCT-GLUCOSE [id number] 19:15:00 Test Item Value Reference Range Comments POC-GLUCOSE METER (BEAKER) 383 mg/dL 70-110 TESTED AT [address] (test icpm=8324) [place] [address] POCT-GLUCOSE [id number] 18:43:00 Test Item Value Reference Range Comments POC-GLUCOSE METER (BEAKER) 429 mg/dL 70-110 Notified MARCE REBOLLAR/TESTED AT [facility] (test vhfj=1942) [address] [place], [place] [address] CSF CELL COUNT [id number] 17:48:00 Test Item Value Reference Range Comments APPEARANCE CSF (BEAKER) (test hlpl=547) Clear Clear COLOR CSF (BEAKER) (test vebh=354) Colorless Colorless RBC CSF (BEAKER) (test gwql=434) 7 /cu mm 0-5 WBC CSF (BEAKER) (test vtdz=8240) 0 /cu mm <=5 RBCS FRESH (BEAKER) (test chba=7245) 100% Fresh NUMBER OF CELLS DIFF'D (BEAKER) (test lwcz=0181) 0 TUBE NUMBER CSF (BEAKER) (test dcvn=6678) 1 POCT-GLUCOSE [id number] 17:38:00 Test Item Value Reference Range Comments POC-GLUCOSE METER (BEAKER) 438 mg/dL 70-110 Notified MARCE REBOLLAR/TESTED AT [facility] (test nvip=7484) [address] [place] [address] PROTEIN, [id number] 15:45:00 Test Item Value Reference Range Comments PROTEIN CSF (BEAKER) (test umpp=470) 73 mg/dL 15-45 GLUCOSE, [id number] 15:44:00 Test Item Value Reference Range Comments GLUCOSE CSF (BEAKER) (test aaig=751) 165 mg/dL 40-70 POCT-GLUCOSE [id number] 12:16:00 Test Item Value Reference Range Comments POC-GLUCOSE METER (BEAKER) 375 mg/dL 70-110 Notified MARCE REBOLLAR/TESTED AT [facility] (test bjpf=5378) [address] [place] [address] POCT-GLUCOSE [id number] 07:51:00 Test Item Value Reference Range Comments POC-GLUCOSE METER (BEAKER) 279 mg/dL 70-110 TESTED AT [address] (test jrvo=1673) [place] [id number] ANTI-NUCLEAR ANTIBODY (MARIBELL)2017-09-05 05:34:00 Test Item Value Reference Range Comments ANTI-NUCLEAR ANTIBODY (MARIBELL) (BEAKER) (test Positive Negative gosb=516) POCT-GLUCOSE [id number] 21:44:00 Test Item Value Reference Range Comments POC-GLUCOSE METER (BEAKER) 244 mg/dL 70-110 TESTED AT [address] (test khee=2750) [facility] [address] MR, MRA, BRAIN, WITHOUT [id number] 21:12:00Reason for exam:-> Ischemic Stroke EvaluationFINAL REPORT MRA head and neck Comparison: None Reason for exam: Encephalopathy Discussion: 2 D and 3 -D ucto-gc-phaxok MRA of the head and neck was [...] 2017 09:12 PMMR, MRA, NECK, WITHOUT IV [id number] 21:12:00Reason for exam:->Ischemic Stroke EvaluationFINAL REPORT MRA head and neck Comparison: None Reason for exam: Encephalopathy Discussion: 2 D and 3-D ubll-cg-frjzfo MRA of the head and neck was [...] SOTO M.D. on 09:12 PMMR, BRAIN, WITHOUT [id number] 21:09:00FINAL REPORT MRI brain Comparison: None Reason [...] SHERRIE SOTO M.D. on 09/04 09:09 PMPOCT-GLUCOSE [id number] 18:53:00 Test Item Value Reference Range Comments POC-GLUCOSE METER (BEAKER) 243 mg/dL 70-110 TESTED AT [address] (test oqnt=9364) [facility] [address] POCT-GLUCOSE [id number] 14:28:00 Test Item Value Reference Range Comments POC-GLUCOSE METER (BEAKER) 363 mg/dL 70-110 TESTED AT [address] (test aowj=3602) [facility] [address] POCT-GLUCOSE [id number] 14:22:00 Test Item Value Reference Range Comments POC-GLUCOSE METER (BEAKER) 341 mg/dL 70-110 TESTED AT [address] (test szfy=6475) [facility] [address] POCT-GLUCOSE [id number] 14:18:00 Test Item Value Reference Range Comments POC-GLUCOSE METER (BEAKER) 441 mg/dL 70-110 TESTED AT [address] (test cvyz=3768) [place] [address] POCT-GLUCOSE [id number] 12:12:00 Test Item Value Reference Range Comments POC-GLUCOSE METER (BEAKER) 326 mg/dL 70-110 TESTED AT [address] (test bgwz=6030) [place] [address] POCT-GLUCOSE [id number] 08:50:00 Test Item Value Reference Range Comments POC-GLUCOSE METER (BEAKER) 153 mg/dL 70-110 TESTED AT [address] (test mepu=5306) [facility] [address] [id number] 07:11:00 Test Item Value Reference Range Comments RPR SCREEN (BEAKER) (test olro=923) Nonreactive Nonreactive POCT-GLUCOSE [id number] 21:31:00 Test Item Value Reference Range Comments POC-GLUCOSE METER (BEAKER) 306 mg/dL 70-110 Notified MARCE REBOLLAR/TESTED AT [facility] (test mhwx=5078) [address] [place] [address] POCT-GLUCOSE [id number] 17:42:00 Test Item Value Reference Range Comments POC-GLUCOSE METER (BEAKER) 395 mg/dL 70-110 TESTED AT [address] (test wjtf=3510) [place] [address] EEG AWAKE AND [id number] 16:15:00Reason for exam:->SeizuresDate(s) of EE09/03/17DATE OF REPORT: 09/03/17MRN: [id number]: [id number] Number: [id number] Location: Inpatient RoomStart time: 14:30Stop time: 14:51ICD-10: R56.9CPT Code: 95975 HISTORY: Mr. Powers is a RH 71 y.o. 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 Elisa Jordan MDNeurophysiology Fellow, [id number] note: I personally reviewed this EEG record in its entirety and I agree with the details of this report. Martha Pace MD Clinical Neurophysiology/Epilepsy Attending URINALYSIS W/ REFLEX URINE [id number] 11:56:00 Test Item Value Reference Range Comments COLOR (BEAKER) (test elfz=731) Light Yellow CLARITY (BEAKER) (test vhqd=286) Clear SPECIFIC GRAVITY UA (BEAKER) (test gjnx=370) 1.005 1.001-1.035 PH UA (BEAKER) (test wbyb=432) 5.0 5.0-8.0 PROTEIN UA (BEAKER) (test eaer=360) Negative Negative GLUCOSE UA (BEAKER) (test pjbm=488) 300 mg/dL Negative KETONES UA (BEAKER) (test kqyv=063) Trace Negative BILIRUBIN UA (BEAKER) (test txjk=932) Negative Negative BLOOD UA (BEAKER) (test vhnq=696) Negative Negative NITRITE UA (BEAKER) (test gaiz=321) Negative Negative LEUKOCYTE ESTERASE UA (BEAKER) (test nxos=275) Negative Negative UROBILINOGEN UA (BEAKER) (test rtqu=251) 0.2 mg/dL 0.2-1.0 RBC UA (BEAKER) (test vstf=398) < /HPF WBC UA (BEAKER) (test ifyg=906) 0 /HPF MUCUS (BEAKER) (test dxoc=2566) Rare SOURCE(BEAKER) (test cbrb=5974) SEDIMENTATION [id number] 11:22:00 Test Item Value Reference Range Comments SEDIMENTATION RATE, ERYTHROCYTE (BEAKER) (test 86 mm/HR 0-40 slyv=230) HEMOGLOBIN [id number] 10:37:00 Test Item Value Reference Range Comments HEMOGLOBIN A1C (BEAKER) (test jiiw=344) 10.1 % 4.3-6.1 FastingVITAMIN [id number] 09:09:00 Test Item Value Reference Range Comments VITAMIN B12 (BEAKER) (test qhnv=058) 717 pg/mL 213-816 [id number] 08:49:00 Test Item Value Reference Range Comments HOMOCYSTEINE (BEAKER) (test qgyu=479) 14.8 umol/L 5.1-15.4 FastingPOCT-GLUCOSE [id number] 08:39:00 Test Item Value Reference Range Comments POC-GLUCOSE METER (BEAKER) 329 mg/dL 70-110 Notified MARCE REBOLLAR/TESTED AT [facility] (test ehas=5514) [address] [facility] [address] TSH/FREE T4 IF [id number] 07:33:00 Test Item Value Reference Range Comments THYROID STIMULATING HORMONE (BEAKER) (test 0.49 uIU/mL 0.35-4.94 zimh=075) FastingHIV-1 ANTIGEN WITH HIV-1/2 [id number] 07:28:00 Test Item Value Reference Range Comments HIV-1 ANTIGEN WITH HIV 1\T\2 ANTIBODY (2) Nonreactive Nonreactive (BEAKER) (test pmub=6137) C-REACTIVE [id number] 07:08:00 Test Item Value Reference Range Comments C-REACTIVE PROTEIN (BEAKER) (test caiw=296) 0.68 mg/dL 0.00-0.50 LIPID [id number] 07:08:00 Test Item Value Reference Range Comments TRIGLYCERIDES (BEAKER) (test ukuy=255) 155 mg/dL CHOLESTEROL (BEAKER) (test gzpx=607) 155 mg/dL HDL CHOLESTEROL (BEAKER) (test atpd=476) 35 mg/dL LDL CHOLESTEROL CALCULATED (BEAKER) (test 89 mg/dL jgnm=865) Triglyceride Reference Range: Low Risk <150 Borderline 150- 199 High Risk 200-499 Very High Risk >=500Cholesterol Reference Range: Low Risk <200 Borderline 200-239 High Risk > 240HDL Cholesterol Reference Range: Low Risk >=60 High Risk <40LDL Cholesterol Reference Range: Optimal <100 Near Optimal 100-129 Borderline 130-159 High 160-189 Very High >=190 FastingBASIC METABOLIC [id number] 07:08:00 Test Item Value Reference Range Comments SODIUM (BEAKER) (test 137 meq/L 136-145 qibn=348) POTASSIUM (BEAKER) (test 4.2 meq/L 3.5-5.1 gplp=649) CHLORIDE (BEAKER) (test 103 meq/L 98-107 eprp=571) CO2 (BEAKER) (test 23 meq/L 22-29 dbjt=867) BLOOD UREA NITROGEN 34 mg/dL 7-21 (BEAKER) (test pgrq=895) CREATININE (BEAKER) (test 1.78 mg/dL 0.57-1.25 izxl=728) GLUCOSE RANDOM (BEAKER) 336 mg/dL 70-105 (test rxhz=007) CALCIUM (BEAKER) (test 9.4 mg/dL 8.4-10.2 oqza=291) EGFR (BEAKER) (test 38 mL/min/1.73 sq m ESTIMATED GFR IS NOT myjv=6602) ACCURATE CREATININE CLEARANCE IN PREDICTING GLOMERULAR FILTRATION RATE. ESTIMATED GFR IS NOT APPLICABLE FOR DIALYSIS PATIENTS. FastingHEPATIC FUNCTION [id number] 07:08:00 Test Item Value Reference Range Comments TOTAL PROTEIN (BEAKER) (test hgxr=563) 7.0 gm/dL 6.0-8.3 ALBUMIN (BEAKER) (test hcwj=3338) 4.0 g/dL 3.5-5.0 BILIRUBIN TOTAL (BEAKER) (test ammr=233) 0.5 mg/dL 0.2-1.2 BILIRUBIN DIRECT (BEAKER) (test baum=815) 0.2 mg/dL 0.1-0.5 ALKALINE PHOSPHATASE (BEAKER) (test fecl=632) 77 U/L 40-150 AST (SGOT) (BEAKER) (test wzoy=405) 12 U/L 5-34 ALT (SGPT) (BEAKER) (test npue=949) 12 U/L 6-55 FastingLIPID [id number] 07:06:00 Test Item Value Reference Range Comments TRIGLYCERIDES (BEAKER) (test jqno=036) 160 mg/dL CHOLESTEROL (BEAKER) (test qytu=428) 159 mg/dL HDL CHOLESTEROL (BEAKER) (test tahz=516) 37 mg/dL LDL CHOLESTEROL CALCULATED (BEAKER) (test 90 mg/dL jgmc=183) Triglyceride Reference Range: Low Risk <150 Borderline 150- 199 High Risk 200-499 Very High Risk >=500Cholesterol Reference Range: Low Risk <200 Borderline 200-239 High Risk > 240HDL Cholesterol Reference Range: Low Risk >=60 High Risk <40LDL Cholesterol Reference Range: Optimal <100 Near Optimal 100-129 Borderline 130-159 High 160-189 Very High >=[id number] 06:55:00 Test Item Value Reference Range Comments AMMONIA (BEAKER) (test geol=034) 13 mol/L 18-72 PROTHROMBIN [id number] 06:33:00 Test Item Value Reference Range Comments PROTIME (BEAKER) (test ujsd=865) 16.5 seconds 11.7-14.7 INR (BEAKER) (test exrm=377) 1.3 <=5.9 RECOMMENDED COUMADIN/WARFARIN INR THERAPY RANGESSTANDARD DOSE: 2.0 - 3.0 Includes: PROPHYLAXIS forvenous thrombosis, systemic embolization; TREATMENT for venous thrombosis and/or pulmonary embolus.HIGH RISK: Target INR is 2.5-3.5 for patients with mechanical heart valves.CBC W/PLT COUNT & AUTO [id number] 06:21:00 Test Item Value Reference Range Comments WHITE BLOOD CELL COUNT (BEAKER) (test iknx=499) 8.8 K/ L 3.5-10.5 RED BLOOD CELL COUNT (BEAKER) (test buwc=829) 4.13 M/ L 4.63-6.08 HEMOGLOBIN (BEAKER) (test etuc=380) 11.8 GM/DL 13.7-17.5 HEMATOCRIT (BEAKER) (test vfoo=418) 34.7 % 40.1-51.0 MEAN CORPUSCULAR VOLUME (BEAKER) (test odqa=199) 84.0 fL 79.0-92.2 MEAN CORPUSCULAR HEMOGLOBIN (BEAKER) (test 28.6 pg 25.7-32.2 mybr=022) MEAN CORPUSCULAR HEMOGLOBIN CONC (BEAKER) (test 34.0 GM/DL 32.3-36.5 vnxi=699) RED CELL DISTRIBUTION WIDTH (BEAKER) (test 13.0 % 11.6-14.4 aolr=939) PLATELET COUNT (BEAKER) (test hddo=328) 203 K/CU MM 150-450 MEAN PLATELET VOLUME (BEAKER) (test wnqn=849) 9.5 fL 9.4-12.4 NUCLEATED RED BLOOD CELLS (BEAKER) (test 0 /100 WBC 0-0 wczp=859) NEUTROPHILS RELATIVE PERCENT (BEAKER) (test 77 % ttsn=951) LYMPHOCYTES RELATIVE PERCENT (BEAKER) (test 15 % spbp=573) MONOCYTES RELATIVE PERCENT (BEAKER) (test 7 % nwpj=877) EOSINOPHILS RELATIVE PERCENT (BEAKER) (test 0 % smtv=978) BASOPHILS RELATIVE PERCENT (BEAKER) (test 1 % dyqs=864) NEUTROPHILS ABSOLUTE COUNT (BEAKER) (test 6.73 K/ L 1.78-5.38 gnyn=883) LYMPHOCYTES ABSOLUTE COUNT (BEAKER) (test 1.28 K/ L 1.32-3.57 ltvy=577) MONOCYTES ABSOLUTE COUNT (BEAKER) (test 0.59 K/ L 0.30-0.82 wpmd=413) EOSINOPHILS ABSOLUTE COUNT (BEAKER) (test 0.00 K/ L 0.04-0.54 bvjk=465) BASOPHILS ABSOLUTE COUNT (BEAKER) (test 0.07 K/ L 0.01-0.08 vabo=164) IMMATURE GRANULOCYTES-RELATIVE PERCENT (BEAKER) 1 % 0-1 (test qswo=2728)
--- OUTSIDE RECORDS SUMMARY | 2018-10-06 14:58 | XMS REPORT | Clinical Summary ---
:1945 [facility] Address [address] [place] [address] Care Team Providers Name Role Phone Unavailable [...] 0 09/06/2017 Active TWIST LANCET) 28 gauge [facility] blood sugar Use as directed. 30 strip [...] Not on file Results Not on fileafter 10/05/2017 Insurance Payer Benefit Plan / Group Subscriber ID Type Phone Address MEDICARE MEDICARE A B xxxxxxxxxx Medicare MCR SUPPLEMENT/INDIVIDUAL AARP/[facility] xxxxxxxxxxx [facility] Advance Directives For more information, please contact:[facility] [facility] [place] [phone] Code Status Date Activated Date Inactivated Comments Full Code 09/03/2017 3:06 AM 09/06/2017 6:11 PM This code status was determined by: Patient
[2018-10-06] MEDS ORDERED: BISACODYL 10 MG RECTAL SUPP ONE (15:58)
--- NOTE | 2018-10-06 16:35 | EDPHYS ---
Physician Documentation [facility] Name: Agustin Petty Sr Age: 73 yrs Sex: Male : 1945 Arrival Date: 10/06/2018 Time: 14:58 Bed 24 Private MD: ED Physician Yonny Cherry HPI: 10/06 16:25 This 73 yrs old Male presents to ER via Wheelchair with complaints of gs Constipation. 16:25 The patient presents to the emergency department with pain in the rectal area, that is gs severe. Onset: The symptoms/episode began/occurred today. Context: the patient NO BM. Modifying factors: The symptoms are alleviated by nothing, The symptoms are aggravated by nothing. Associate signs and symptoms: Pertinent negatives: abdominal pain. The patient has experienced similar episodes in the past, a few times. The patient has not recently seen a physician. Historical: - Allergies: 15:30 No Known Allergies; la1 - PMHx: 15:30 Dementia; Diabetes - NIDDM; Hyperlipidemia; Hypertension; prostate cancer; la1 - PSHx: 15:30 None; la1 - Immunization history:: Adult Immunizations up to date. - Social history:: Smoking status: Patient/guardian denies using tobacco. - Ebola Screening: : No symptoms or risks identified at this time. ROS: 16:25 All other systems are negative. gs Exam: 16:25 Head/Face: Normocephalic, atraumatic. Eyes: Pupils equal round and reactive to light, gs extra-ocular motions intact. Lids and lashes normal. Conjunctiva and sclera are non-icteric and not injected. Cornea within normal limits. Periorbital areas with no swelling, redness, or edema. ENT: Nares patent. No nasal discharge, no septal abnormalities noted. Tympanic membranes are normal and external auditory canals are clear. Oropharynx with no redness, swelling, or masses, exudates, or evidence of obstruction, uvula midline. Mucous membranes moist. Neck: Trachea midline, no thyromegaly or masses palpated, and no cervical lymphadenopathy. Supple, full range of motion without nuchal rigidity, or vertebral point tenderness. No Meningismus. Chest/axilla: Normal chest wall appearance and motion. Nontender with no deformity. No lesions are appreciated. Cardiovascular: Regular rate and rhythm with a normal S1 and S2. No gallops, murmurs, or rubs. Normal PMI, no JVD. No pulse deficits. Respiratory: Lungs have equal breath sounds bilaterally, clear to auscultation and percussion. No rales, rhonchi or wheezes noted. No increased work of breathing, no retractions or nasal flaring. Abdomen/GI: Soft, non-tender, with normal bowel sounds. No distension or tympany. No guarding or rebound. No evidence of tenderness throughout. Back: No spinal tenderness. No costovertebral tenderness. Full range of motion. MS/ Extremity: Pulses equal, no cyanosis. Neurovascular intact. Full, normal range of motion. Neuro: Awake and alert, GCS 15, oriented to person, place, time, and situation. Cranial nerves II-XII grossly intact. Motor strength 5/5 in all extremities. Sensory grossly intact. Cerebellar exam normal. Normal gait. 16:25 Constitutional: The patient appears alert, awake. 16:25 Abdomen/GI: Rectal exam: fecal impaction, that is severe. Vital Signs: 15:25 BP 156 / 56; Pulse 60; Resp 20; Temp 97.7; Pulse Ox 98% ; lt1 16:50 BP 145 / 74; Pulse 84; Resp 16; Pulse Ox 98% on R/A; la1 Procedures: 16:25 Fecal disimpaction: digital disimpaction was performed, with a large amount of stool gs expressed. The patient tolerated the intervention well. MDM: 16:15 Patient medically screened. gs 16:25 Data reviewed: vital signs, nurses notes. Response to treatment: the patient's symptoms gs have markedly improved after treatment, and as a result, I will discharge patient. Administered Medications: 15:52 Drug: Dulcolax Suppository 10 mg Route: AL; la1 16:52 Follow up: Response: No adverse reaction la1 Disposition: 10/06/18 16:35 Discharged to Home. Impression: Fecal impaction. - Condition is Stable. - Discharge Instructions: Fecal Impaction. - Prescriptions for Miralax 17 gram/dose Oral - take 1 packet by ORAL route once daily dilute powder in 8 ounces of water or juice; 1 bottle. - Medication Reconciliation Form, Thank You Letter, Antibiotic Education, Prescription Opioid Use form. - Follow up: Jarrod Ramirez MD; When: 2 - 3 days; Reason: Re-evaluation by your physician. Signatures: Benjie Boykin RN RN la1 Yonny Cherry MD MD gs Corrections: (The following items were deleted from the chart) 16:53 16:35 10/06/2018 16:35 Discharged to Home. Impression: Fecal impaction. Condition is la1 Stable. Forms are Medication Reconciliation Form, Thank You Letter, Antibiotic Education, Prescription Opioid Use. Follow up: Jarrod Ramirez; When: 2 - 3 days; Reason: Re-evaluation by your physician. gs
--- NOTE | 2018-10-06 16:35 | ER ---
Nurse's Notes [facility] Name: Agustin Petty Sr Age: 73 yrs Sex: Male : 1945 Arrival Date: 10/06/2018 Time: 14:58 Bed 24 Private MD: Diagnosis: Fecal impaction Presentation: 10/06 15:28 Presenting complaint: Patient states: I am severely constipated, last BM was 1-2 days la1 ago but I feel like its stuck right now, pt denies vomiting, diarrhea or fevers. Transition of care: patient was not received from another setting of care. Onset of symptoms was October 06, 2018. Risk Assessment: Do you want to hurt yourself or someone else? Patient reports no desire to harm self or others. Initial Sepsis Screen: Does the patient meet any 2 criteria? No. Patient's initial sepsis screen is negative. Does the patient have a suspected source of infection? No. Patient's initial sepsis screen is negative. Care prior to arrival: None. 15:28 Method Of Arrival: Wheelchair la1 15:28 Acuity: ALVIN 3 la1 Historical: - Allergies: 15:30 No Known Allergies; la1 - PMHx: 15:30 Dementia; Diabetes - NIDDM; Hyperlipidemia; Hypertension; prostate cancer; la1 - PSHx: 15:30 None; la1 - Immunization history:: Adult Immunizations up to date. - Social history:: Smoking status: Patient/guardian denies using tobacco. - Ebola Screening: : No symptoms or risks identified at this time. Screenin:52 Abuse screen: Denies threats or abuse. Nutritional screening: No deficits noted. la1 Tuberculosis screening: No symptoms or risk factors identified. Fall Risk None identified. Assessment: 16:50 Reassessment: ERP completed digital disimpaction with large volume of stool. General: la1 Appears in no apparent distress. Behavior is calm, cooperative. Pain: Denies pain. Neuro: Level of Consciousness is awake, alert, obeys commands, Oriented to person, place, time, situation. Cardiovascular: Capillary refill < 3 seconds. Cardiovascular: Respiratory: Airway is patent Respiratory effort is even, unlabored, Respiratory pattern is regular, symmetrical. GI: Abdomen is round non-distended, Bowel sounds present X 4 quads. Abd is soft and non tender X 4 quads. Vital Signs: 15:25 BP 156 / 56; Pulse 60; Resp 20; Temp 97.7; Pulse Ox 98% ; lt1 16:50 BP 145 / 74; Pulse 84; Resp 16; Pulse Ox 98% on R/A; la1 ED Course: 14:58 Patient arrived in ED. tw3 15:28 Benjie Boykin RN is Primary Nurse. la1 15:29 Triage completed. la1 15:29 Arm band placed on left wrist. la1 15:32 Yonny Cherry MD is Attending Physician. 16:27 Jarrod Ramirez MD is Referral Physician. 16:52 Call light in reach. la1 16:52 No provider procedures requiring assistance completed. Maintain EMS IV. la1 16:53 Patient did not have IV access during this emergency room visit. la1 Administered Medications: 15:52 Drug: Dulcolax Suppository 10 mg Route: VT; la1 16:52 Follow up: Response: No adverse reaction la1 Outcome: 16:35 Discharge ordered by . 16:52 Discharged to home ambulatory. la1 16:52 Condition: improved 16:52 Discharge instructions given to patient, Instructed on discharge instructions, follow up and referral plans. medication usage, Demonstrated understanding of instructions, follow-up care, medications, Prescriptions given X 1. 16:53 Patient left the ED. la1 Signatures: Benjie Boykin RN RN la1 Shima Campos tw3 Yonny Cherry MD MD Alisson Loyola lt1
[2018-10-06 17:41] VITALS: TEMP 97.7; O2SAT 98
[2018-10-06 17:43] VITALS: BP 145/74
== END 2018-10-06 16:53 | disposition home or self-care (01) ==
LOC: ER 14:56
DX: K56.41 Fecal impaction (principal); I10 Essential (primary) hypertension; F03.90 Unspecified dementia, unspecified severity, without behavioral disturbance, psychotic disturbance, mood disturbance, and anxiety; Z85.46 Personal history of malignant neoplasm of prostate
CPT/HCPCS: 99283

== ENCOUNTER 2020-01-23 09:41 | Emergency (ER) | payer OTHER, MEDICARE ==
--- OUTSIDE RECORDS SUMMARY | 2020-01-23 09:46 | XMS REPORT | Clinical Summary ---
:1945 Author Organization [facility] Address [address] [place] [address] Care Team Providers Name Role Phone Unavailable Primary Care Provider Unavailable Allergies No Known Allergies Medications Medication Sig Dispensed Refills Start Date End Date Status glimepiride Take 4 mg by mouth 0 Active (AMARYL) 4 MG every morning before tablet breakfast. rosuvastatin Take 20 mg by mouth 0 Active (CRESTOR) 20 MG daily. tablet metFORMIN Take 1,000 mg by 0 Act lea (GLUCOPHAGE) 1000 mouth 2 (two) times MG tablet daily with breakfast and dinner. furosemide (LASIX) Take 40 mg by mouth 0 Active 40 MG daily. tabletIndications: visible water retention lisinopril Take 20 mg by mouth 0 [...] next 30 min. . insulin detemir Inject subcutaneously 0 Active (LEVEMIR) 100 nightly. unit/mL injection lancets (CARETOUCH Use as directed. 30 each 0 09/06/2017 Active TWIST LANCET) 28 gauge [facility] blood sugar Use as directed. 30 strip 0 09/06/2017 Active diagnostic (ACCUTREND GLUCOSE) Strp Active Problems Problem Noted Date Encephalopathy 09/04/2017 Altered mental status, unspecified altered mental stat us type 09/04/2017 Altered mental status, unspecified 09/03/2017 [...] Not on file Results Not on fileafter 01/22/2019 Insurance Payer Benefit Plan / Group Subscriber ID Type Phone A ddress MEDICARE MEDICARE A B xxxxxxxxxx Medicare MCR SUPPLEMENT/INDIVIDUAL AARP/[facility] xxxxxxxxxxx [facility] [id number] Advance Directives For more information, please contact:[address] [phone] Code Status Date Activated Date Inactivated Comments Full Code 09/03/2017 3:06 AM 09/06/2017 6:11 PM This code status was determined by: Patient
--- OUTSIDE RECORDS SUMMARY | 2020-01-23 09:47 | XMS REPORT | Continuity of Care Document ---
:1945 Author Organization [facility] t Address [address] [place] [address] Care Team Providers Name Role Phone ADALID AKBAR Attending Clinician Unavailable ADALID AKBAR Admitting Clinician Unavailable Problems Condition Condition Condition Status Onset Resolution Last Treating Co mments Source Name Details Category Date Date Treatment Clinician Date Encephalop Encephalop Disease Active [facility] 00 Center Altered Altered Disease Active [facility] mental mental 4-17 [facility] - status, status, 00:00: Medical unspecifie unspecifie 00 Ce nter d altered d altered mental mental status status type type Altered Altered Disease Active [facility] mental mental 4-16 [facility] - status, status, 00:00: Medical unspecifie unspecifie 00 Ce nter d d Urinary Urinary Problem Active [facility] incontinen incontinen Norma kes - ce, ce, Memoria unspecifie unspecifie l d type d type Outpati ent Clinics Chronic Chronic Problem Active [facility] kidney kidney [facility] - disease, disease, Memori a stage 3 stage 3 l (moderate) (moderate) Ou tpati ent Clinics assisted superintendent terminal Problem Active [facility] (current) (current) Luke [facility] - use of use of Memoria insulin insulin l Outpati ent Clinics Generalize Generalize Problem Active [facility] d anxiety d anxiety [facility] - disorder disorder Memori a l Outpati ent Clinics History of History of Problem Active [facility] prostate prostate [facility] - cancer cancer Memoria l Outpati ent Clinics Type 2 Type [address] [facility] diabetes diabetes [facility] - mellitus mellitus Memori a with with l diabetic diabetic Outpat i chronic chronic ent kidney kidney Clinics disease disease Essential Essential Problem Active [facility] hypertensi hypertensi Norma kes - on on Memoria l [facility] ent Clinics Type 2 Type [address] [facility] diabetes diabetes [facility] - mellitus mellitus Memori a with with l hyperglyce hyperglyce Ou tpati rgeg greg ent Clinics Memory Memory Problem Active [facility] change change [facility] - Memoria l [facility] ent Clinics Mixed Mixed Problem Active [facility] hyperlipid hyperlipid Norma kes - emia emia Memoria l [facility] ent Clinics Current Current Problem Active [facility] moderate moderate [facility] - episode of episode of Me moria major major l depressive depressive Ou tpati disorder disorder ent without without Clinics prior prior episode episode Allergies, Adverse Reactions, Alerts This patient has no known allergies or adverse reactions. Social History Social Habit Start Date Stop Date Quantity Comments Source Sex Assigned At [facility] Smoking Status Start Date Stop Date Source Never smoker [facility] Medications Ordered Filled Start Stop Current Ordering Indication Dosage Frequency Signature Comments Components Source Medication Medication Date Date Medication? Clinician (SIG) Name Name lancets Yes Use as [facility] (CARETOUCH 4-19 directed. Luke [facility] - TWIST 00:00: Medical LANCET) 28 00 [place] gauge [facility] blood sugar Yes Use as [facility] diagnostic 4-19 directed. Luke [facility] - (ACCUTREND 00:00: Medical GLUCOSE) [address] f[address]semide Yes visible 40mg QD Take [address] (LASIX) 40 4-16 water by mouth Luke s - MG tablet 03:57: retention daily. edical 27 [place] lisinopril Yes 20mg QD Take [address] (PRINIVIL,Z 4-16 by mouth Luke s - ESTRIL) 20 03:57: daily. Medic al MG tablet 27 [place] gabapentin Yes 300mg [id number] Take [address] (NEURONTIN) 4-16 [id number] mg by L ukes - 300 MG 03:57: 3D mouth 3 Medical capsule 27 (three) Center times daily. alendronate Yes 70mg Take [address] [facility] (FOSAMAX) 4-16 by mouth [facility] - 70 MG 03:57: every 7 Medical tablet 27 days Take Center in the morning with a full glass of water, on an empty stomach, and do not take anything else by mouth or lie down for the next 30 min. . insulin 2018-0 Yes QD Inject [facility] detemir 4-16 subcutaneo [facility] - (LEVEMIR) 03:57: usly Medical 100 unit/mL 27 nightly. Cent er injection glimepiride 0 Yes 4mg Take [address] (AMARYL) 4 4-16 by mouth [facility] - MG tablet 03:57: every Medical 26 morning Center before breakfast. rosuvastati Yes 20mg QD Take [address] n (CRESTOR) 4-16 by mouth Luke s - 20 MG 03:57: daily. Medical tablet 26 Center metFORMIN Yes 1000mg Take 1,[address] [facility] (GLUCOPHAGE 4-16 mg by [facility] - ) 1000 MG 03:57: mouth 2 Medic al tablet 26 (two) Center times daily with breakfast and dinner. Tresiba Tresiba Yes Otoniel inject [address] [facility] [address] [facility] ent Clinics Procedures This patient has no known procedures. Encounters Start End Encounter Admission Attending Care Care Encounter Source Date/Time Date/Time Type Type Clinicians Facility Department ID 2019-12-25 2019-12-25 Outpatient Dick Ortiz [id number] [address] 14:42:00 14:42:00 [facility] Medicine l Medicine [facility] ent Clinics 2019-12-18 2019-12-18 Outpatient Dick Ortiz [id number] 13:08:00 13:08:00 [facility] Medicine l Medicine Outpati ent Clinics 2019-12-10 2019-12-10 Outpatient Dick Ortiz [id number] [address] 13:54:00 13:54:00 [facility] Medicine l Medicine Outpati ent Clinics 2019-10-24 2019-10-24 Outpatient Dick Ortiz [id number] 10:00:00 10:00:00 [facility] Medicine l Medicine Outpati ent Clinics 2019-10-24 2019-10-24 Outpatient Dick Ortiz [id number] 09:45:00 09:45:00 [facility] Clinics Results Test Description Test Time Test Comments Results Result Comments Source MISCELLANEOUS LAB ORDER 2017-09-12 09:38:00 Test Item Value Reference Range Interpretation Comme nts SCAN RESULT (test code = 7070837) CSF CULTURE + GRAM [id number] 17:06:00 Test Item Value Reference Range Interpretation Comments CULTURE (BEAKER) (test code No growth = 1095) GRAM STAIN RESULT (BEAKER) No WBCs (test code = 1123) GRAM STAIN RESULT (BEAKER) No organisms seen (test code = 61548) HSV 1/2 PCR, [id number] 14:20:00 Test Item Value Reference Range Interpretation Comments HSV BY PCR (BEAKER) (test code = NEGATIVE NEGATIVE 334) Herpes Simplex Virus (HSV) not detected.These assays were performed by real-time PCR utilizing [...] and its performance characteristics determined by the [facility] Pathology Department, Section of Molecular Pathology. It has not been cleared or approved by the U.S. Food and Drug Administration (FDA), as FDA approval is not required for clinical use of the test. Validation was done as required by the Clinical Laboratory Amendments of 1988.MARIBELL TITER AND [id number] 10:36:00 Test Item Value Reference Range Interpretation Comments MARIBELL TITER (BEAKER) (test code = :40 1541) MARIBELL PATTERN (BEAKER) (test code = Speckled 1781) POCT-GLUCOSE [id number] 08:31:00 Test Item Value Reference Range Interpretation Comments POC-GLUCOSE METER 321 mg/dL 70-110 H Notified R Giancarlo REBOLLAR/TESTED ([facility]) (test code = AT [facility] [address]) [facility] [address] POCT-GLUCOSE [id number] 05:11:00 Test Item Value Reference Range Interpretation Comments POC-GLUCOSE METER 289 mg/dL 70-110 H TESTED AT [place] [id number] ([facility]) (test code = ASHER Byrne [facility] 1538) [address] CRYPTOCOCCAL ANTIGEN, [id number] 00:44:00 Test Item Value Reference Range Interpretation Comments CRYPTOCOCCAL ANTIGEN, CSF Negative Negative, Interference ([facility]) (test code = 673) VDRL, [id number] 00:30:00 Test Item Value Reference Range Interpretation Comments SYPHILIS VDRL QUANTITATION CSF Nonreactive Nonreactive ([facility]) (test code = 747) POCT-GLUCOSE [id number] 19:15:00 Test Item Value Reference Range Interpretation Comments POC-GLUCOSE METER 383 mg/dL 70-110 H TESTED AT [place] [address] ([facility]) (test code = ASHER Byrne [place] [address]) [address] POCT-GLUCOSE [id number] 18:43:00 Test Item Value Reference Range Interpretation Comments POC-GLUCOSE METER 429 mg/dL 70-110 HH Notified R N MD/TESTED ([facility]) (test code = AT [place] [address]) [facility] 7703 0 CSF CELL COUNT [id number] 17:48:00 Test Item Value Reference Range Interpretation Comments APPEARANCE CSF (BEAKER) (test code Clear Clear = 407) COLOR CSF (BEAKER) (test code = Colorless Colorless 408) RBC CSF (BEAKER) (test code = 409) 7 /cu mm 0-5 H WBC CSF (BEAKER) (test code = 0 /cu mm <=5 1020) RBCS FRESH (BEAKER) (test code = 100% Fresh 1444) NUMBER OF CELLS DIFF'D (BEAKER) 0 (test code = 1591) TUBE NUMBER CSF (BEAKER) (test 1 code = 2678) POCT-GLUCOSE [id number] 17:38:00 Test Item Value Reference Range Interpretation Comments POC-GLUCOSE METER 438 mg/dL 70-110 HH Notified R N MD/TESTED (BEAKER) (test code = AT [place] [id number] [facility] 1538) [facility] 7[address] 0 PROTEIN, [id number] 15:45:00 Test Item Value Reference Range Interpretation Comments PROTEIN CSF (BEAKER) (test code = 73 mg/dL 15-45 H 378) GLUCOSE, [id number] 15:44:00 Test Item Value Reference Range Interpretation Comments GLUCOSE CSF (DANGELO) (test code = 165 mg/dL 40-70 H 406) POCT-GLUCOSE [id number] 12:16:00 Test Item Value Reference Range Interpretation Comments POC-GLUCOSE METER 375 mg/dL 70-110 H Notified R Giancarlo MD/TESTED ([facility]) (test code = AT [facility] [address] [facility] [facility] 1538) [facility] [address] 0 POCT-GLUCOSE [id number] 07:51:00 Test Item Value Reference Range Interpretation Comments POC-GLUCOSE METER 279 mg/dL 70-110 H TESTED AT [place] [address] ([facility]) (test code = ASHER Byrne [facility] 1538) [address] ANTI-NUCLEAR ANTIBODY (MARIBELL)2017-09-05 05:34:00 Test Item Value Reference Range Interpretation Comments ANTI-NUCLEAR ANTIBODY (MARIBELL) ([facility]) Positive Negative A (test code = 418) POCT-GLUCOSE [id number] 21:44:00 Test Item Value Reference Range Interpretation Comments POC-GLUCOSE METER 244 mg/dL 70-110 H TESTED AT [place] [address] ([facility]) (test code = ASHER Byrne [facility] 1538) [address] MR, MRA, BRAIN, WITHOUT [id number] 21:12:00Reason for exam:->Ischemic Stroke EvaluationFINAL REPORT MRA head and neck Comparison: None Reason for exam: Encephalopathy Discussion: 2 D and 3-D togl-bm-znnwiy MRA of the head and neck was [...] atherosclerotic stenosis. Signed: Sherrie Soto Verified Date/Time: 09/04/2017 21:12:06 MR, MRA, NECK, WITHOUT IV [id number] 21:12:00Reason for exam:->Ischemic Stroke EvaluationFINAL REPORT MRA head and neck Comparison: None Reason for exam: Encephalopathy Discussion: 2 D and 3-D smzo-dk-[id number] MRA of the head and neck was [...] atherosclerotic stenosis. Signed: Sherrie Soto Verified Date/Time: 09/04/2017 21:12:06 MR, BRAIN, WITHOUT [id number] 21:09:00FINAL REPORT MRI brain Comparison: None Reason [...] posterior dural sinuses. The pineal, sella, and pararescue craftsman niocervical junction regions are unremarkable. The visualized orbital contents, paranasal sinuses, skullbase and surrounding soft tissues are unremarkable. . Impressions: 1. Signal alterations within multiple cerebral sulci, etiology unknown. CT head may provide additional helpful information. Ifindicated consider CSF analysis. Subarachnoid hemorrhage could not be excluded. 2. Ventricular prominence. Correlate clinically for communicating hydrocephalus. Signed: Sherrie Soto Verified Date/Time: 09/04/2017 21:09:29 POCT-GLUCOSE [id number] 18:53:00 Test Item Value Reference Range Interpretation Comments POC-GLUCOSE METER 243 mg/dL 70-110 H TESTED AT [place] [address] ([facility]) (test code = ASHER Byrne [place] 1538) [address] POCT-GLUCOSE [id number] 14:28:00 Test Item Value Reference Range Interpretation Comments POC-GLUCOSE METER 363 mg/dL 70-110 H TESTED AT [place] [address] ([facility]) (test code = ASHER Byrne [place] 1538) [address] POCT-GLUCOSE [id number] 14:22:00 Test Item Value Reference Range Interpretation Comments POC-GLUCOSE METER 341 mg/dL 70-110 H TESTED AT [facility] 6720 ([facility]) (test code = ASHER Byrne [place] 1538) [address] POCT-GLUCOSE [id number] 14:18:00 Test Item Value Reference Range Interpretation Comments POC-GLUCOSE METER 441 mg/dL 70-110 HH TESTED AT [place] [address] ([facility]) (test code = ASHER Byrne [place] 1538) [address] POCT-GLUCOSE [id number] 12:12:00 Test Item Value Reference Range Interpretation Comments POC-GLUCOSE METER 326 mg/dL 70-110 H TESTED AT [facility] 6720 ([facility]) (test code = ASHER Byrne [place] 1538) [address] POCT-GLUCOSE [id number] 08:50:00 Test Item Value Reference Range Interpretation Comments POC-GLUCOSE METER 153 mg/dL 70-110 H TESTED AT [facility] 6720 ([facility]) (test code = KAMARAMBERLY Caty [place] 1538) [address] [id number] 07:11:00 Test Item Value Reference Range Interpretation Comments RPR SCREEN ([facility]) (test code = Nonreactive Nonreactive 420) POCT-GLUCOSE [id number] 21:31:00 Test Item Value Reference Range Interpretation Comments POC-GLUCOSE METER 306 mg/dL 70-110 H Notified Caty Mondragon MD/TESTED ([facility]ANGELO) (test code = AT [facility] [address] [address]) [facility] 7703 0 POCT-GLUCOSE [id number] 17:42:00 Test Item Value Reference Range Interpretation Comments POC-GLUCOSE METER 395 mg/dL 70-110 H TESTED AT [facility] 6720 (DANGELO) (test code = ASHER Byrne [facility] 1538) [address] EEG AWAKE AND [id number] 16:15:00Reason for exam:->SeizuresDate(s) of EE09/03/17DATE OF REPORT: 09/03/17MRN: [id number]: [id number] Number: [id number] Location: Inpatient RoomStart time: 14:30Stop time: 14:51ICD-10: R56.9CPT Code: 83571 HISTORY: Mr. Powers is a RH 71 [...] referential montages using the modified combinatorial system [place] nclature. DESCRIPTION OF RECORD: During the maximally alert state a 7-8 Hz posterior dominant rhythm was seen that was symmetric, reactive to eye opening and well regulated. More anteriorly, low voltage frontocentral beta predominated. Background shows excessive moderate voltage 5-7Hz theta activiti es during the alert state. Drowsiness was characterized [...] additional EEG recordings. Elisa Jordan MDNeurophysiology Fellow, [id number] note: I personally reviewed this EEG record in its entirety and I agree with the details of this report. Martha Pace MD Clinical Neurophysiology/Epilepsy Attending ALYSIS W/ REFLEX URINE [id number] 11:56:00 Test Item Value Reference Range Interpretation Comments COLOR (BEAKER) (test code = 470) Light Yellow CLARITY (BEAKER) (test code = Clear 469) SPECIFIC GRAVITY UA (BEAKER) 1.005 1.001-1.035 (test code = 468) PH UA (BEAKER) (test code = 467) 5.0 5.0-8.0 PROTEIN UA (BEAKER) (test code = Negative Negative 464) GLUCOSE UA (BEAKER) (test code = 300 mg/dL Negative A 365) KETONES UA (BEAKER) (test code = Trace Negative A 371) BILIRUBIN UA (BEAKER) (test code Negative Negative = 462) BLOOD UA (BEAKER) (test code = Negative Negative 461) NITRITE UA (BEAKER) (test code = Negative Negative 465) LEUKOCYTE ESTERASE UA (BEAKER) Negative Negative (test code = 466) UROBILINOGEN UA (BEAKER) (test 0.2 mg/dL 0.2-1.0 code = 463) RBC UA (BEAKER) (test code = < /HPF 519) WBC UA (BEAKER) (test code = 0 /HPF 520) MUCUS (BEAKER) (test code = Rare 1574) SOURCE(BEAKER) (test code = 8364) SEDIMENTATION [id number] 11:22:00 Test Item Value Reference Range Interpretation Comments SEDIMENTATION RATE, ERYTHROCYTE 86 mm/HR 0-40 H (BEAKER) (test code = 766) HEMOGLOBIN [id number] 10:37:00 Test Item Value Reference Range Interpretation Comments HEMOGLOBIN A1C (BEAKER) (test code = 10.1 % 4.3-6.1 H 368) FastingVITAMIN [id number] 09:09:00 Test Item Value Reference Range Interpretation Comments VITAMIN B12 ([facility]ANGELO) (test code = 717 pg/mL 213816 774) [id number] 08:49:00 Test Item Value Reference Range Interpretation Comments HOMOCYSTEINE (BEAKER) (test code 14.8 umol/L 5.1-15.4 = 642) FastingPOCT-GLUCOSE [id number] 08:39:00 Test Item Value Reference Range Interpretation Comments POC-GLUCOSE METER 329 mg/dL 70-110 H Notified R N MD/TESTED ([facility]) (test code = AT [facility] 67[address] [facility] 1538) [place] [address] TSH/FREE T4 IF [id number] 07:33:00 Test Item Value Reference Range Interpretation Comments THYROID STIMULATING HORMONE 0.49 uIU/mL 0.35-4.94 (GRACIELAAKER) (test code = 772) FastingHIV-1 ANTIGEN WITH HIV-1/2 [id number] 07:28:00 Test Item Value Reference Range Interpretation Comments HIV-1 ANTIGEN WITH HIV 1\T\2 Nonreactive Nonreactive ANTIBODY (2) ([employer]) (test code = 2586) C-REACTIVE [id number] 07:08:00 Test Item Value Reference Range Interpretation Comments C-REACTIVE PROTEIN (VaxInnateAKER) (test 0.68 mg/dL 0.00-0.50 H code = 676) LIPID [id number] 07:08:00 Test Item Value Reference Range Interpretation Comments TRIGLYCERIDES (BEAKER) (test code = 155 mg/dL 540) CHOLESTEROL (BEAKER) (test code = 155 mg/dL 631) HDL CHOLESTEROL (BEAKER) (test code 35 mg/dL = 976) LDL CHOLESTEROL CALCULATED (VaxInnateAKER) 89 mg/dL (test code = 633) Triglyceride Reference Range: Low Risk <150 Borderline 150-199 High Risk 200-499 Very High Risk >=500Cholesterol Reference Range: Low Risk <200 Borderline 200-239 High Risk >240HDL Cholesterol Reference Range: Low Risk >=60 High Risk <40LDL Cholesterol Reference Range: Optimal <100 Near Optimal 100-129 Borderline 130-159 High 160-189 Very High >=190 FastingBASIC METABOLIC [id number] 07:08:00 Test Item Value Reference Range Interpretation Comments SODIUM (BEAKER) 137 meq/L 136-145 (test code = 381) POTASSIUM (BEAKER) 4.2 meq/L 3.5-5.1 (test code = 379) CHLORIDE (BEAKER) 103 meq/L 98-107 (test code = 382) CO2 (BEAKER) (test 23 meq/L 22-29 code = 355) BLOOD UREA NITROGEN 34 mg/dL 7-21 H (BEAKER) (test code = 354) CREATININE (BEAKER) 1.78 mg/dL 0.57-1.25 H (test code = 358) GLUCOSE RANDOM 336 mg/dL 70-105 H (BEAKER) (test code = 652) CALCIUM (BEAKER) 9.4 mg/dL 8.4-10.2 (test code = 697) EGFR (BEAKER) (test 38 mL/min/1.73 ESTIMA CHRISTIE GFR IS code = 1092) sq m NOT ACCURATE CREATININE CLEARANCE IN PREDICTING GLOMERULAR FILTRATION RATE . ESTIMATED GFR I S NOT APPLICABLE FOR DIALYSIS PATIEN TS. FastingHEPATIC FUNCTION [id number] 07:08:00 Test Item Value Reference Range Interpretation Comments TOTAL PROTEIN (BEAKER) (test code = 7.0 gm/dL 6.0-8.3 770) ALBUMIN (BEAKER) (test code = 1145) 4.0 g/dL 3.5-5.0 BILIRUBIN TOTAL (BEAKER) (test code 0.5 mg/dL 0.2-1.2 = 377) BILIRUBIN DIRECT (BEAKER) (test 0.2 mg/dL 0.1-0.5 code = 706) ALKALINE PHOSPHATASE (BEAKER) (test 77 U/L 40-150 code = 346) AST (SGOT) (BEAKER) (test code = 12 U/L 5-34 353) ALT (SGPT) (BEAKER) (test code = 12 U/L 6-55 347) FastingLIPID [id number] 07:06:00 Test Item Value Reference Range Interpretation Comments TRIGLYCERIDES (BEAKER) (test code = 160 mg/dL 540) CHOLESTEROL (BEAKER) (test code = 159 mg/dL 631) HDL CHOLESTEROL (BEAKER) (test code 37 mg/dL = 976) LDL CHOLESTEROL CALCULATED (BEAKER) 90 mg/dL (test code = 633) Triglyceride Reference Range: Low Risk <150 Borderline 150-199 High Risk 200-499 Very High Risk >=500Cholesterol Reference Range: Low Risk <200 Borderline 200-239 High Risk >240HDL Cholesterol Reference Range: Low Risk >=60 High Risk <40LDL Cholesterol Reference Range: Optimal <100 Near Optimal 100-129 Borderline 130-159 High 160-189 Very High >=[id number] 06:55:00 Test Item Value Reference Range Interpretation Comments AMMONIA (BEAKER) (test code = 348) 13 mol/L 18-72 L PROTHROMBIN [id number] 06:33:00 Test Item Value Reference Range Interpretation Comments PROTIME (BEAKER) (test code = 16.5 seconds 11.7-14.7 H 759) INR (BEAKER) (test code = 370) 1.3 <=5.9 RECOMMENDED COUMADIN/WARFARIN INR THERAPY RANGESSTANDARD DOSE: 2.0 - 3.0 Includes: PROPHYLAXIS forvenous thrombosis, systemic embolization; TREATMENT for venous thrombosis and/or pulmonary embolus.HIGH RISK: Target INR is 2.5-3.5 for patients with mechanical heart valves.CBC W/PLT COUNT & AUTO DIFFERENTIAL 2017-09-03 06:21:00 Test Item Value Reference Range Interpretation Comments WHITE BLOOD CELL COUNT (BEAKER) 8.8 K/ L 3.5-10.5 (test code = 775) RED BLOOD CELL COUNT (BEAKER) 4.13 M/ L 4.63-6.08 L (test code = 761) HEMOGLOBIN (BEAKER) (test code = 11.8 GM/DL 13.7-17.5 L 410) HEMATOCRIT (BEAKER) (test code = 34.7 % 40.1-51.0 L 411) MEAN CORPUSCULAR VOLUME (BEAKER) 84.0 fL 79.0-92.2 (test code = 753) MEAN CORPUSCULAR HEMOGLOBIN 28.6 pg 25.7-32.2 (BEAKER) (test code = 751) MEAN CORPUSCULAR HEMOGLOBIN CONC 34.0 GM/DL 32.3-36.5 (BEAKER) (test code = 752) RED CELL DISTRIBUTION WIDTH 13.0 % 11.6-14.4 (BEAKER) (test code = 412) PLATELET COUNT (BEAKER) (test 203 K/CU MM 150-450 code = 756) MEAN PLATELET VOLUME (BEAKER) 9.5 fL 9.4-12.4 (test code = 754) NUCLEATED RED BLOOD CELLS 0 /100 WBC 0-0 (BEAKER) (test code = 413) NEUTROPHILS RELATIVE PERCENT 77 % (BEAKER) (test code = 429) LYMPHOCYTES RELATIVE PERCENT 15 % (BEAKER) (test code = 430) MONOCYTES RELATIVE PERCENT 7 % (BEAKER) (test code = 431) EOSINOPHILS RELATIVE PERCENT 0 % (BEAKER) (test code = 432) BASOPHILS RELATIVE PERCENT 1 % (BEAKER) (test code = 437) NEUTROPHILS ABSOLUTE COUNT 6.73 K/ L 1.78-5.38 H (BEAKER) (test code = 670) LYMPHOCYTES ABSOLUTE COUNT 1.28 K/ L 1.32-3.57 L (BEAKER) (test code = 414) MONOCYTES ABSOLUTE COUNT (BEAKER) 0.59 K/ L 0.30-0.82 (test code = 415) EOSINOPHILS ABSOLUTE COUNT 0.00 K/ L 0.04-0.54 L (BEAKER) (test code = 416) BASOPHILS ABSOLUTE COUNT (BEAKER) 0.07 K/ L 0.01-0.08 (test code = 417) IMMATURE GRANULOCYTES-RELATIVE 1 % 0-1 PERCENT (BEAKER) (test code = 6375)
--- OUTSIDE RECORDS SUMMARY | 2020-01-23 09:47 | XMS REPORT ---
:1945 Author Organization [employer] Care Team Providers Name Role Phone Otoniel Adams Provider Role Unavailable Allergies No Known Allergies Problems Problem Type Condition Code Onset Dates Condition Statu s Problem Urinary incontinence, unspecified R32 Active type Problem Chronic kidney disease, stage 3 N18.3 Active (moderate) Problem MCFP (current) use of insulin Z79.4 Active Problem Current moderate episode of major F32.1 Active depressive disorder without prior episode Problem Generalized anxiety disorder F41.1 Active Problem History of prostate cancer Z85.46 A ctive Problem Essential hypertension I10 Activ e Problem Type 2 diabetes mellitus with E11.22 Active diabetic chronic kidney disease Problem Type 2 diabetes mellitus with E11.65 Active hyperglycemia Problem Memory change R41.3 Active Problem Mixed hyperlipidemia E78.2 Active Medications No Known Medications Results No Known Results Summary Purpose eClinicalMeddle Submission
--- OUTSIDE RECORDS SUMMARY | 2020-01-23 09:47 | XMS REPORT ---
:1945 Author Organization eClinicalWorks Care Team Providers Name Role Phone AdamsOtoniel Provider Role Unavailable Allergies No Known Allergies Problems Problem Type Condition Code Onset Dates Condition Statu s Problem Urinary incontinence, unspecified R32 Active type Problem Chronic kidney disease, stage 3 N18.3 Active (moderate) Problem director long term care (current) use of insulin Z79.4 Active Assessment Type 2 diabetes mellitus with E11.65 Active hyperglycemia Problem Current moderate episode of major F32.1 [...] Active Problem Mixed hyperlipidemia E78.2 Active Medications Medication Code System Code Instructions Start End Date Status Dos age Date Tresiba [facility] [id number] 200 units/mL Active inject 35 Subcuteneous Once mg a day Results No Known Results Summary Purpose eClinicalWorks Submission
--- OUTSIDE RECORDS SUMMARY | 2020-01-23 09:47 | XMS REPORT ---
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
[2020-01-23 10:22] LABS: Absolute Lymphocytes (CBC) 0.5 K/uL (0.7-4.9); Basophils % 0.2 % (0-1.3); Hematocrit 33.7 % (39.6-49.0); MPV 7.2 fL (7.6-11.3); RBC Red Blood Cell Count 3.93 M/uL (4.33-5.43)
[2020-01-23 10:23] LABS: Protime INR 1.2
[2020-01-23 10:35] LABS: BUN Blood Urea Nitrogen 43 mg/dL (7-18); Bicarbonate 21 mmol/L (21-32); Creatine Phosphokinase 298 U/L (39-308); Glucose Level 265 mg/dL (74-106); Magnesium 2.1 mg/dL (1.8-2.4); NT PRO-BNP 499 pg/mL (<125); Sodium Level 140 mmol/L (136-145); Troponin (Emerg Dept Use Only) < 0.02 ng/mL (0.0-0.045)
[2020-01-23 10:39] LABS: Potassium 5.7 mmol/L (3.5-5.1)
[2020-01-23 11:09] LABS: Blood Morphology Comment NOT SEEN (NOT SEEN); Platelet Estimate ADEQ
--- NOTE | 2020-01-23 11:19 | RAD REPORT ---
EXAM DESCRIPTION: RAD - Pelvis - 01/23/2020 11:08 am CLINICAL HISTORY: TRAUMA Fall, right hip pain COMPARISON: None FINDINGS: AP pelvis, right hip and right femur - multiple projections are submitted Intratrochanteric fracture the proximal right femur is seen with varus angulation. The bones are edmar neralized. No dislocation seen.
--- NOTE | 2020-01-23 11:20 | RAD REPORT ---
EXAM DESCRIPTION: RAD - Chest Single View - 01/23/2020 11:08 am CLINICAL HISTORY: preop Chest pain. COMPARISON: Chest Pa And Lat (2 Views) dated 06/14/2018; Chest Single View dated 09/02/2017; Chest Pa And Lat (2 Views) dated 02/13/2017; Chest Pa And Lat (2 Views) dated 03/24/2016 FINDINGS: Portable technique limits examination quality. The lungs are grossly clear. The heart is normal in size. No displaced fractures. IMPRESSION: No acute intrathoracic process suspected.
--- NOTE | 2020-01-23 11:21 | RAD REPORT ---
EXAM DESCRIPTION: RAD - Hip Right 2 View - 01/23/2020 11:09 am CLINICAL HISTORY: TRAUMA Fall, right hip pain COMPARISON: None FINDINGS: AP pelvis, right hip and right femur - multiple projections are submitted Intratrochanteric fracture the proximal right femur is seen with varus angulation. The bones are edmar neralized. No dislocation seen.
--- NOTE | 2020-01-23 11:21 | RAD REPORT ---
EXAM DESCRIPTION: RAD - Femur Right - 01/23/2020 11:09 am CLINICAL HISTORY: TRAUMA Fall, right hip pain COMPARISON: None FINDINGS: AP pelvis, right hip and right femur - multiple projections are submitted Intratrochanteric fracture the proximal right femur is seen with varus angulation. The bones are edmar neralized. No dislocation seen.
--- NOTE | 2020-01-23 12:20 | ER ---
Nurse's Notes [facility] Name: Agustin Petty Sr Age: 74 yrs Sex: Male : 1945 Arrival Date: 01/23/2020 Time: 09:48 Bed 20 Private MD: Diagnosis: Proximal Right Femur Fracture Presentation: 01/22 09:39 Chief complaint: EMS states: pt was found laying on the ground beside his bed, unknown sv downtime and unknown fall. c/o low back pain (states he has been having back pain before this incident), neck pain and right knee pain. BP 113/71 HR-87 98.5 temp BS-248. Care prior to arrival: Placed on backboard. Mechanism of Injury: unknown. Trauma event details: Injury occurred in the [facility], Injury occurred: at home. Injury occurred: January 23, 2020. 09:39 Acuity: ALVIN 3 sv 09:39 Method Of Arrival: EMS: [facility] sv 09:52 Coronavirus screen: Client denies travel out of the [place] in the last 14 days. At this sv time, the client does not indicate any symptoms associated with coronavirus-19. Ebola Screen: No symptoms or risks identified at this time. Initial Sepsis Screen: Does the patient meet any 2 criteria? No. Patient's initial sepsis screen is negative. Does the patient have a suspected source of infection? No. Patient's initial sepsis screen is negative. Risk Assessment: Do you want to hurt yourself or someone else? Patient reports no desire to harm self or others. Onset of symptoms was January 23, 2020. Triage Assessment: 13:53 General: Appears in no apparent distress. comfortable, Behavior is calm, cooperative, ca1 appropriate for age. Trauma Activation: Not Applicable Physician: ED Physician; Name: ; Notified At: ; Arrived At: Physician: General Surgeon; Name: ; Notified At: ; Arrived At: Physician: Radiology; Name: ; Notified At: ; Arrived At: Physician: Respiratory; Name: ; Notified At: ; Arrived At: Physician: Lab; Name: ; Notified At: ; Arrived At: Historical: - Allergies: 09:51 No Known Allergies; sv - PMHx: 09:51 Dementia; Diabetes - NIDDM; Hyperlipidemia; Hypertension; Prostate Cancer; sv - PSHx: 09:51 None; sv - Immunization history:: Adult Immunizations. - Immunization history: Last tetanus immunization: unknown. - Social history:: Smoking status: Patient denies any tobacco usage or history of. Screenin:55 Abuse screen: Denies threats or abuse. Denies injuries from another. Tuberculosis sv screening: No symptoms or risk factors identified. 09:55 Nutritional screening: No deficits noted. Fall Risk No fall in past 12 months (0 pts). sv Secondary diagnosis (15 points) dementia, No IV (0 pts). Ambulatory Aid- None/Bed Rest/Nurse Assist (0 pts). Gait- Normal/Bed Rest/Wheelchair (0 pts) Mental Status- Oriented to own ability (0 pts). Total Rodgers Fall Scale indicates No Risk (0-24 pts). Primary Survey: 09:39 NO uncontrolled hemorrhage observed. A: The patient is alert. Airway: patent, No sv supplemental oxygen in use on arrival. Oral cavity: clear, Trachea midline. Breathing/Chest: Respiratory pattern: regular, Respiratory effort: spontaneous, unlabored, Chest inspection: symmetrical rise and fall of the chest. Circulation: Pulses: palpable right radial artery, right dorsalis pedis artery, left radial artery and left dorsalis pedis artery. Skin color: pink, Skin temperature: warm, dry. Disability Alert. Exposure/Environment: All clothing and personal items were removed. Forensic evidence collection is not deemed to be indicated at this time. Items placed in patient belonging bag. There is no evidence of uncontrolled external bleeding. No obvious injuries are noted at this time. A warming method has been applied: A warm blanket has been provided to the patient. 10:20 Reassessment Airway Airway Patent Oxygen No O2 Oral cavity Clear Trachea Midline sv Breathing/Chest Respiratory pattern Regular Respiratory effort Spontaneous Unlabored Chest inspection Symmetrical Circulation Heart rhythm Sinus rhythm Pulses Palpable Color [place] Temperature Warm Dry Disability Alert. Secondary Survey: 09:39 HEENT: No deficits noted. Gastrointestinal: No deficits noted. : No deficits noted. sv No signs and/or symptoms were reported regarding the genitourinary system. Musculoskeletal: Reports pain in low back area and right knee. Assessment: 10:49 Reassessment: Pt currently in xray. sv 11:36 Reassessment: Patient appears in no apparent distress at this time. No changes from ca1 previously documented assessment. Patient and/or family updated on plan of care and expected duration. Pain level reassessed. Patient is alert, oriented x 3, equal unlabored respirations, skin warm/dry/pink. 12:19 Reassessment: Patient appears in no apparent distress at this time. No changes from ca1 previously documented assessment. Patient is alert, oriented x 3, equal unlabored respirations, skin warm/dry/pink. 12:55 Reassessment: Patient appears in no apparent distress at this time. No changes from ca1 previously documented assessment. Patient and/or family updated on plan of care and expected duration. Pain level reassessed. 13:19 Reassessment: Called report to MARCE Taylor. ca1 13:53 Reassessment: Patient appears in no apparent distress at this time. Patient is alert, ca1 oriented x 3, equal unlabored respirations, skin warm/dry/pink. Vital Signs: 09:52 BP 118 / 77; Pulse 88; Resp 16; Temp 97.5; Pulse Ox 99% ; Pain 8/10; sv 10:20 BP 137 / 59; Pulse 83; Resp 16; Temp 98(O); Pulse Ox 100% on R/A; sv 11:37 BP 155 / 78; Pulse 88; Resp 15 S; Pulse Ox 100% on R/A; ca1 12:19 BP 159 / 79; Pulse 96; Resp 16 S; Pulse Ox 100% on R/A; ca1 13:03 BP 113 / 97; Pulse 98; Resp 20 S; Pulse Ox 100% on R/A; ca1 13:53 BP 141 / 80; Pulse 89; Resp 15 S; Pulse Ox 100% on R/A; ca1 Brooklyn Coma Score: 09:52 Eye Response: spontaneous(4). Verbal Response: confused(4). Motor Response: obeys sv commands(6). Total: 14. 10:20 Eye Response: spontaneous(4). Verbal Response: confused(4). Motor Response: obeys sv commands(6). Total: 14. 11:37 Eye Response: spontaneous(4). Verbal Response: confused(4). Motor Response: obeys ca1 commands(6). Total: 14. Trauma Score (Adult): 09:52 Eye Response: spontaneous(1); Verbal Response: confused(1); Motor Response: obeys sv commands(2); Systolic BP: > 89 mm Hg(4); Respiratory Rate: 10 to 29 per min(4); [place] Score: 14; Trauma Score: 12 10:20 Eye Response: spontaneous(1); Verbal Response: confused(1); Motor Response: obeys sv commands(2); Systolic BP: > 89 mm Hg(4); Respiratory Rate: 10 to 29 per min(4); Dueyn Score: 14; Trauma Score: 12 ED Course: 09:40 Thermoregulation: warm blanket given to patient. sv 09:48 Patient arrived in ED. sv 09:51 Triage completed. sv 09:51 Riana Burton FNP-C is [facility]. kb 09:51 Burton Fragoso MD is Attending Physician. kb 09:53 Arm band placed on. sv 09:55 Patient has correct armband on for positive identification. Placed in gown. Bed in low sv position. Call light in reach. Side rails up X2. Adult w/ patient. Pulse ox on. NIBP on. Door closed. 09:56 Nurse Practitioner and/or Physician Wildlife Control Agent to see patient. sv 09:56 Patient maintains SpO2 saturation greater than 95% on room air. sv 09:58 Anna Cortés, MARCE is Primary Nurse. sv 10:05 Inserted saline lock: 20 gauge in right antecubital area, using aseptic technique. sv Blood collected. Flushed right antecubital with 5 ml normal saline. 10:31 EKG done, by ED staff, reviewed by Burton Fragoso MD. em1 11:00 Report given to Vinita ZHENG. sv 11:08 Hip Right 2 View XRAY In Process Unspecified. EDMS 11:08 Pelvis XRAY In Process Unspecified. EDMS 11:08 Femur Right XRAY In Process Unspecified. EDMS 11:08 Chest Single View XRAY In Process Unspecified. EDMS 11:38 transfer iniated by Rm with Charleen mathews the [facility] [place]. eb 12:[address] Zaman the orthopedic surgeon automation manager for [facility] with Riana Son eb for patient transfer consultation. 12:20 No provider procedures requiring assistance completed. ca1 12:[address] Craft the hospitalist automation manager for [facility] with Riana Son for eb patient transfer consultation. 12:53 administrative approval given to Charleen Ellsworth Rn/ patient has been accepted to [facility] 15 tower 1534/ Dr. Craft has accepted the patient in transfer/ report to be called to [phone]. 13:54 Patient transferred, IV remains in place. ca1 Administered Medications: 12:45 Drug: Kayexalate 30 grams Route: PO; ca1 13:21 Follow up: Response: No adverse reaction ca1 13:45 Drug: Zofran (Ondansetron) 4 mg {Note: rass 0.} Route: IVP; Site: right antecubital; ca1 13:52 Follow up: Response: administered before transport ca1 13:47 Drug: morphine 4 mg {Note: rass 0.} Route: IVP; Site: right antecubital; ca1 13:52 Follow up: Response: administered before transport ca1 Intake: 09:52 PO: 0ml; Total: 0ml. sv 10:20 PO: 0ml; Total: 0ml. sv Output: 09:52 Urine: 0ml; Total: 0ml. sv 10:20 Urine: 0ml; Total: 0ml. sv Outcome: 12:19 ER care complete, transfer ordered by MD. altman 13:54 Transferred by ground EMS to [facility], Transfer form completed. ca1 X-rays sent w/ patient. 13:54 Condition: stable 13:54 Instructed on the need for transfer. 13:54 Patient's length of stay in the Emergency Department was greater than 2 hours. transfer ca1 Patient's length of stay extended due to 13:54 Patient left the ED. ca1 Signatures: Dispatcher [employer] EDRiana Pandey, SHARON SPAIN-Anna Walden, RN RN Rm Parada em1 Cadence Jennings Cheryl RN RN ca1
--- NOTE | 2020-01-23 12:20 | EDPHYS ---
Physician Documentation [facility] Name: Agustin Petty Sr Age: 74 yrs Sex: Male : 1945 Arrival Date: 01/23/2020 Time: 09:48 Bed 20 Private MD: THEO Physician Burton Fragoso HPI: 01/22 12:25 This 74 yrs old Male presents to ER via EMS with complaints of Fall Injury, kb Low Back Pain. 12:25 The patient or guardian reports decreased range of motion, deformity, an injury, pain. kb that occurred at home, sustained from a fall, the left lower extremity is shortened, the left leg is internally rotated, The patient is not able to ambulate. Patient is not able to bear weight. There is no radiation of the patient's discomfort. the patient was discovered an unknown amount of time after the incident. The complaints affect the right hip. Onset: The symptoms/episode began/occurred last night. Modifying factors: The symptoms are alleviated by nothing, the symptoms are aggravated by any movement. Associated signs and symptoms: Loss of consciousness: the patient experienced no loss of consciousness, Pertinent positives: None. Severity of symptoms: At their worst the symptoms were moderate, in the emergency department the symptoms are unchanged. The patient has not experienced similar symptoms in the past. The patient has not recently seen a physician. Son reports pt went to sit in a chair yesterday and missed it falling to buttocks. He helped pt into bed, but at some point in the night pt fell out of bed. He found pt on floor this morning and was unable to get him up due to pain. Not sure what time pt fell out of bed. Pt reports pain to right hip and thigh. States no pain if he is not being moved so doesn't want pain medication at this time. Pt will let us know if that changes and he wants medication for pain.. Historical: - Allergies: 09:51 No Known Allergies; sv - PMHx: :51 Dementia; Diabetes - NIDDM; Hyperlipidemia; Hypertension; Prostate Cancer; sv - PSHx: 09:51 None; sv - Immunization history:: Adult Immunizations. - Immunization history: Last tetanus immunization: unknown. - Social history:: Smoking status: Patient denies any tobacco usage or history of. ROS: 12:23 Constitutional: Negative for fever, chills, and weight loss, Cardiovascular: Negative kb for chest pain, palpitations, and edema, Respiratory: Negative for shortness of breath, cough, wheezing, and pleuritic chest pain, Abdomen/GI: Negative for abdominal pain, nausea, vomiting, diarrhea, and constipation, Back: Negative for injury and pain, Skin: Negative for injury, rash, and discoloration, Neuro: Negative for headache, weakness, numbness, tingling, and seizure. 12:23 MS/extremity: Positive for injury or acute deformity, decreased range of motion, deformity, pain, tenderness, of the right hip. Exam: 12:23 Constitutional: This is a well developed, well nourished patient who is awake, alert, kb and in no acute distress. Head/Face: Normocephalic, atraumatic. Neck: Trachea midline, no thyromegaly or masses palpated, and no cervical lymphadenopathy. Supple, full range of motion without nuchal rigidity, or vertebral point tenderness. No Meningismus. Chest/axilla: Normal chest wall appearance and motion. Nontender with no deformity. No lesions are appreciated. Cardiovascular: Regular rate and rhythm with a normal S1 and S2. No gallops, murmurs, or rubs. Normal PMI, no JVD. No pulse deficits. Respiratory: Lungs have equal breath sounds bilaterally, clear to auscultation and percussion. No rales, rhonchi or wheezes noted. No increased work of breathing, no retractions or nasal flaring. Abdomen/GI: Soft, non-tender, with normal bowel sounds. No distension or tympany. No guarding or rebound. No evidence of tenderness throughout. Skin: Warm, dry with normal turgor. Normal color with no rashes, no lesions, and no evidence of cellulitis. Neuro: Awake and alert, GCS 15, oriented to person, place, time, and situation. Cranial nerves II-XII grossly intact. Motor strength 5/5 in all extremities. Sensory grossly intact. Cerebellar exam normal. Normal gait. 12:23 Musculoskeletal/extremity: Extremities: grossly normal except: noted in the right hip: decreased ROM, deformity, pain, tenderness, ROM: limited passive range of motion, Circulation is intact in all extremities. Sensation intact. Weight bearing: is unable to bear weight. Vital Signs: 09:52 BP 118 / 77; Pulse 88; Resp 16; Temp 97.5; Pulse Ox 99% ; Pain 8/10; sv 10:20 BP 137 / 59; Pulse 83; Resp 16; Temp 98(O); Pulse Ox 100% on R/A; sv 11:37 BP 155 / 78; Pulse 88; Resp 15 S; Pulse Ox 100% on R/A; ca1 12:19 BP 159 / 79; Pulse 96; Resp 16 S; Pulse Ox 100% on R/A; ca1 13:03 BP 113 / 97; Pulse 98; Resp 20 S; Pulse Ox 100% on R/A; ca1 13:53 BP 141 / 80; Pulse 89; Resp 15 S; Pulse Ox 100% on R/A; ca1 Mallie Coma Score: 09:52 Eye Response: spontaneous(4). Verbal Response: confused(4). Motor Response: obeys sv commands(6). Total: 14. 10:20 Eye Response: spontaneous(4). Verbal Response: confused(4). Motor Response: obeys sv commands(6). Total: 14. 11:37 Eye Response: spontaneous(4). Verbal Response: confused(4). Motor Response: obeys ca1 commands(6). Total: 14. Trauma Score (Adult): 09:52 Eye Response: spontaneous(1); Verbal Response: confused(1); Motor Response: obeys sv commands(2); Systolic BP: > 89 mm Hg(4); Respiratory Rate: 10 to 29 per min(4); Mallie Score: 14; Trauma Score: 12 10:20 Eye Response: spontaneous(1); Verbal Response: confused(1); Motor Response: obeys sv commands(2); Systolic BP: > 89 mm Hg(4); Respiratory Rate: 10 to 29 per min(4); Mallie Score: 14; Trauma Score: 12 MDM: 09:51 Patient medically screened. kb 12:16 Data reviewed: vital signs, nurses notes. Data interpreted: Pulse oximetry: on room air kb is 100 %. Interpretation: normal. ED course: Dr Zaman, ortho at [facility], accepts pt for consult. 12:23 Counseling: I had a detailed discussion with the patient and/or guardian regarding: the kb historical points, exam findings, and any diagnostic results supporting the discharge/admit diagnosis, lab results, radiology results, the need to transfer to another facility, [facility] does not immediately have the required specialist. 01/22 10:02 Order name: Basic Metabolic Panel; Complete Time: 10:46 kb 01/22 10:02 Order name: CBC with Diff; Complete Time: 11:22 kb 01/22 10:02 Order name: Magnesium; Complete Time: 10:46 kb 01/22 10:02 Order name: NT PRO-BNP; Complete Time: 10:46 kb 01/22 10:02 Order name: PT-INR; Complete Time: 10:28 kb 01/22 10:02 Order name: Troponin (emerg Dept Use Only); Complete Time: 10:46 kb 01/22 10:02 Order name: CPK; Complete Time: 10:46 kb 01/22 10:02 Order name: Hip Right 2 View XRAY; Complete Time: 14:46 kb 01/22 10:02 Order name: Pelvis XRAY; Complete Time: 11:22 kb 01/22 10:02 Order name: Femur Right XRAY; Complete Time: 14:46 kb 01/22 10:50 Order name: Chest Single View XRAY; Complete Time: 11:22 kb 01/22 11:09 Order name: Manual Differential; Complete Time: 11:22 EDMS 01/22 10:02 Order name: EKG; Complete Time: 10:02 kb 01/22 10:02 Order name: Cardiac monitoring; Complete Time: 11:26 kb 01/22 10:02 Order name: EKG - Nurse/Tech; Complete Time: 10:30 kb 01/22 10:02 Order name: IV Saline Lock; Complete Time: 10:12 kb 01/22 10:02 Order name: Labs collected and sent; Complete Time: 10:12 kb 01/22 10:02 Order name: O2 Per Protocol; Complete Time: 10:12 kb 01/22 10:02 Order name: O2 Sat Monitoring; Complete Time: 10:12 kb Administered Medications: 12:45 Drug: Kayexalate 30 grams Route: PO; ca1 13:21 Follow up: Response: No adverse reaction ca1 13:45 Drug: Zofran (Ondansetron) 4 mg {Note: rass 0.} Route: IVP; Site: right antecubital; ca1 13:52 Follow up: Response: administered before transport ca1 13:47 Drug: morphine 4 mg {Note: rass 0.} Route: IVP; Site: right antecubital; ca1 13:52 Follow up: Response: administered before transport ca1 Disposition: 01/23 11:10 Co-signature as Attending Physician, Burton Fragoso MD I agree with the assessment and [facility] plan of care. Disposition: 01/23/20 12:[address] [facility]. Diagnosis is Proximal Right Femur Fracture. - Reason for transfer: Higher level of care. - Accepting physician is Venancio. - Condition is Stable. - Problem is new. - Symptoms are unchanged. Signatures: Dispatcher [employer] EDMS Riana Burton, RN ACUTE CARE-C RN ACUTE CARE-Anna Walden RN Burton Bennett MD MD cha Acob, Cheryl RN RN ca1 Corrections: (The following items were deleted from the chart) 01/22 13:54 12:19 01/23/2020 12:[address] [facility]. ca1 Diagnosis is Proximal Right Femur Fracture. Reason for transfer: Higher level of care. Accepting physician is Venancio. Condition is Stable. Problem is new. Symptoms are unchanged. kb
[2020-01-23] MEDS ORDERED: SOD POLYSTYREN SUL 15 GM/60 ML UCUP ONE (12:55)
[2020-01-23] MEDS ORDERED: ONDANSETRON 4 MG/2 ML VIAL ONE (13:56)
[2020-01-23] MEDS ORDERED: MORPHINE 4 MG/ML SYR ONE (13:56)
--- NOTE | 2020-01-24 09:02 | EKG ---
Test Date: 2020-01-23 Test Time: 10:29:22 Policy Analyst: FLACO MEASUREMENT RESULTS: Intervals: Rate: 81 NM: 130 QRSD: 122 QT: 446 QTc: 518 [place]: P: 70 NM: 130 QRS: 52 T: 102 INTERPRETIVE STATEMENTS: Normal sinus rhythm Cannot rule out Anterior infarct, age undetermined T wave abnormality, consider lateral ischemia Abnormal ECG Compared to ECG 09/02/2017 20:43:33 Myocardial infarct finding now present Short NM interval no longer present T-wave abnormality still present Possible ischemia still present Electronically Signed On 01-24-20 09:00:19 CDT by Bradley Charlton
[2020-01-24 21:23] VITALS: TEMP 98; O2SAT 100
[2020-01-24 21:28] VITALS: BP 141/80
== END 2020-01-23 13:54 | disposition short-term general hospital (02) ==
LOC: ER 09:41
DX: S72.001A Fracture of unspecified part of neck of right femur, initial encounter for closed fracture (principal); W06.XXXA Fall from bed, initial encounter; Y93.89 Activity, other specified; Y92.003 Bedroom of unspecified non-institutional (private) residence as the place of occurrence of the external cause; Z85.46 Personal history of malignant neoplasm of prostate; I10 Essential (primary) hypertension; F03.90 Unspecified dementia, unspecified severity, without behavioral disturbance, psychotic disturbance, mood disturbance, and anxiety
CPT/HCPCS: 93005; 85025; 80048; 36415; 83735; 82550; 85610; 84484; 83880; 71045; 72170; 73502; 73552; 96375; 96374; 99285; J2405